=== PATIENT | female | born 1960 | race Caucasian/White ===

== ENCOUNTER 2019-11-04 21:24 | Emergency (ER) | payer BC, OTHER ==
[~2019-11-04] VITALS: Ht 154.9 cm; Wt 113.2 kg
--- NOTE | 2019-11-04 21:59 | ED Integumentary General ---
General Stated Complaint: NODULE PQAIN Source: patient Exam Limitations: no limitations History of Present Illness Date Seen by Provider: Nov 04, 2019 Time Seen by Provider: 21:45 Initial Comments 58-year-old female presents because she "wants her white blood cells count drawn" patient reports that she is has some nodules on her back and under her right breast to the been there for at least 2-1/2 months. She was scheduled to see a surgeon and have a biopsy done but did not make the appointment. Patient reports that they've been more painful over the last couple days and wants assistance or "infected" by a white blood cell count. 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 She reports she's been taking "Hazard's for the pain" and is not helping. She does not have any acute complaints. I did discuss with her that this is not an emergent type visit and that I lab is not indicated. It reviewed with her that is probably will not be covered by insurance which she states "she will pay for it herself" if not. I will check her white blood cell count as requested. Allergies and Home Medications Allergies Coded Allergies: amitriptyline (Verified Allergy, Unknown, 11/04/19) diphenhydramine (Verified Allergy, Unknown, 11/04/19) fentanyl (Verified Allergy, Unknown, 11/04/19) ketorolac (Verified Allergy, Unknown, 11/04/19) Patient Home Medication List Home Medication List Reviewed: Yes Review of Systems Review of Systems Constitutional: No chills, No fever Respiratory: No cough, No short of breath Gastrointestinal: no symptoms reported Skin: see HPI Past Beesqoi-Dwarxh-Ooilhi Hx Past Med/Social Hx: Reviewed Nursing Past Med/Soc Hx Patient Social History Recent Foreign Travel: No Contact w/Someone Who Travel: No Physical Exam Vital Signs Vital Signs - First Documented 11/04/19 21:42 Temp 37.7 Pulse 90 Resp 20 B/P (MAP) 138/88 (105) O2 Delivery Room Air Capillary Refill : General Appearance: no apparent distress Cardiovascular: regular rate, rhythm Respiratory: no respiratory distress Gastrointestinal: soft, other (obese) Extremities: normal range of motion Neurologic/Psychiatric: alert, oriented x 3 Skin: other (small nodules most consistent with lipoma or similar type mass, no erythema, warmth, induration or abscess abscesses present.) Progress/Results/Core Measures Results/Orders Lab Results Laboratory Tests Test 11/04/19 22:05 Range/Units White Blood Count 10.9 4.3-11.0 10^3/uL Red Blood Count 5.12 4.35-5.85 10^6/uL Hemoglobin 14.6 11.5-16.0 G/DL Hematocrit 44 35-52 % Mean Corpuscular Volume 87 80-99 FL Mean Corpuscular Hemoglobin 29 25-34 PG Mean Corpuscular Hemoglobin Concent 33 32-36 G/DL Red Cell Distribution Width 13.2 10.0-14.5 % Platelet Count 313 130-400 10^3/uL Mean Platelet Volume 10.4 7.4-10.4 FL Neutrophils (%) (Auto) 57 42-75 % Lymphocytes (%) (Auto) 30 12-44 % Monocytes (%) (Auto) 10 0-12 % Eosinophils (%) (Auto) 2 0-10 % Basophils (%) (Auto) 1 0-10 % Neutrophils # (Auto) 6.2 1.8-7.8 X 10^3 Lymphocytes # (Auto) 3.3 1.0-4.0 X 10^3 Monocytes # (Auto) 1.1 H 0.0-1.0 X 10^3 Eosinophils # (Auto) 0.3 0.0-0.3 10^3/uL Basophils # (Auto) 0.1 0.0-0.1 10^3/uL My Orders Orders - WANDER ESQUIVEL DO Cbc With Automated Diff (11/04/19 21:52) Vital Signs/I&O 11/04/19 21:42 Temp 37.7 Pulse 90 Resp 20 B/P (MAP) 138/88 (105) O2 Delivery Room Air Departure Impression Primary Impression: Lipoma Qualified Codes: D17.9 - Benign lipomatous neoplasm, unspecified Disposition: 01 HOME, SELF-CARE Condition: Stable Departure-Patient Inst. Referrals: NO,LOCAL PHYSICIAN (PCP/Family) Primary Care Physician Patient Instructions: Lipoma Add. Discharge Instructions: Emergency department focuses on treating and ruling out life-threatening diseases. Whenever possible, a diagnosis is given. However, most patients are given an impression based on their history, physical exam, and workup during your brief time in the ER. Information about probable diagnosis and other educational material has been provided. Please take the time to read and understand this information. It is very important that you follow up with a physician as discussed during the visit today. Failure to adhere to your follow-up instructions may lead to severe disability, injury, or so please make sure to keep your appointments or obtain one as requested. Please keep in mind the emergency department is not designed to your primary care or "family doctor" and nonurgent issues are best evaluated by an outpatient physician WANDER ESQUIVEL DO Nov 04, 2019 21:59
[2019-11-04 22:17] LABS: BASOPHILS % (AUTO) 1 % (0-10); EOSINOPHILS # (AUTO) 0.3 10^3/uL (0.0-0.3); EOSINOPHILS % (AUTO) 2 % (0-10); HEMATOCRIT 44 % (35-52); HEMOGLOBIN 14.6 G/DL (11.5-16.0); LYMPHOCYTES # (AUTO) 3.3 X 10^3 (1.0-4.0); LYMPHOCYTES % (AUTO) 30 % (12-44); MEAN CORPUSCULAR HEMOGLOBIN 29 PG (25-34); MEAN CORPUSCULAR HGB CONC 33 G/DL (32-36); MEAN CORPUSCULAR VOLUME 87 FL (80-99); MEAN PLATELET VOLUME 10.4 FL (7.4-10.4); MONOCYTES # (AUTO) 1.1 X 10^3 (0.0-1.0); MONOCYTES % (AUTO) 10 % (0-12); NEUTROPHILS # (AUTO) 6.2 X 10^3 (1.8-7.8); NEUTROPHILS % (AUTO) 57 % (42-75); PLATELET COUNT 313 10^3/uL (130-400); RED CELL DISTRIBUTION WIDTH 13.2 % (10.0-14.5); WHITE BLOOD COUNT 10.9 10^3/uL (4.3-11.0)
[2019-11-04 22:18] LABS: BASOPHILS # (AUTO) 0.1 10^3/uL (0.0-0.1)
[2019-11-04 22:27] VITALS: BP 138/88
== END 2019-11-04 22:33 | disposition home or self-care (01) ==
LOC: EDUNIT# 21:24 → ER FS 21:29
DX: D17.9 Benign lipomatous neoplasm, unspecified (principal); Z88.5 Allergy status to narcotic agent; Z88.6 Allergy status to analgesic agent; Z88.8 Allergy status to other drugs, medicaments and biological substances
CPT/HCPCS: 36415; 85025

== ENCOUNTER 2019-12-08 17:30 | Emergency (ER) | payer BC ==
[~2019-12-08] VITALS: Ht 154.9 cm; Wt 112.9 kg
--- NOTE | 2019-12-08 17:32 | NUR ---
Pt refusing any procedures until pt is able to use restroom. Pt reporting symptoms have resolved at this time and pt saying, "I can go home now."
--- NOTE | 2019-12-08 17:45 | ED Chest Pain ---
General Stated Complaint: CP Source: patient, EMS Exam Limitations: no limitations History of Present Illness Date Seen by Provider: Dec 08, 2019 Time Seen by Provider: 17:40 Initial Comments Patient brought in by ambulance for chest pain. The patient was sleeping taking a nap she awoke with nausea vomited and then developed substernal chest pain that radiated straight through to her back she had no syncope no shortness of breath no diaphoresis pain did radiate somewhat into the left shoulder she was treated was ondansetron on the scene and is now feeling quite better and the chest pain is completely resolved. She has had symptoms like this previously where she's undergone an extensive workup including provocative cardiac stress testing they have all been normal. The nonsmoker she has diabetes she has hypertension and she is unknown cholesterol she is a positive family history father with coronary artery disease. 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 ASSOCIATE: Yes Associated Symptoms: No abdominal pain; back pain; No diaphoresis, No dizziness, No fever/chills; nausea/vomiting Allergies and Home Medications Allergies Coded Allergies: amitriptyline (Verified Allergy, Unknown, 11/04/19) diphenhydramine (Verified Allergy, Unknown, 11/04/19) fentanyl (Verified Allergy, Unknown, 11/04/19) ketorolac (Verified Allergy, Unknown, 11/04/19) Patient Home Medication List Home Medication List Reviewed: Yes Review of Systems Review of Systems Constitutional: No chills, No diaphoresis, No fever EENTM: No Double Vision, No Ear Pain, No Mouth Pain Respiratory: Denies Cough, Denies Orthopnea, Denies Shortness of Air Cardiovascular: See HPI Gastrointestinal: See HPI Genitourinary: No Symptoms Reported Musculoskeletal: back pain Skin: no symptoms reported Psychiatric/Neurological: Anxiety Endocrine: No Symptoms Reported Hematologic/Lymphatic: Other (patient has some scattered nodules under the skin that are lymph nodes versus fibromas currently pending a biopsy) Past Xboyvto-Ziezpy-Wmucqm Hx Past Med/Social Hx: Reviewed Nursing Past Med/Soc Hx Patient Social History Recent Hopitalizations: No Seasonal Allergies Seasonal Allergies: No Past Medical History Surgeries: Yes (LIVER BIOPSY, THYROID BIOPSY, KNEE SURGERY) Gallbladder Respiratory: No Cardiac: Yes Heart Attack Neurological: No Genitourinary: No Gastrointestinal: No Musculoskeletal: No Endocrine: No HEENT: No Cancer: No Psychosocial: No Integumentary: No Blood Disorders: No Physical Exam Vital Signs Vital Signs - First Documented Capillary Refill : Height, Weight, BMI Height: '" Weight: lbs. oz. kg; 47.00 BMI Method: General Appearance: No Apparent Distress, WD/WN, Other (mildly obese) HEENT: PERRL/EOMI, TMs Normal, Normal ENT Inspection, Pharynx Normal Neck: Full Range of Motion, Normal Inspection, Non Tender, Supple Respiratory: Chest Non Tender, Lungs Clear, Normal Breath Sounds, No Accessory Muscle Use Cardiovascular: Regular Rate, Rhythm, No Edema, No Murmur, Normal Peripheral Pulses Gastrointestinal: Normal Bowel Sounds, No Organomegaly, Non Tender, Soft Extremity: Normal Capillary Refill, Normal Inspection, Normal Range of Motion, Non Tender, No Calf Tenderness Neurologic/Psychiatric: Alert, Oriented x3, No Motor/Sensory Deficits, Normal 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, 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 as 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 Skin: Normal Color, Warm/Dry Progress/Results/Core Measures Results/Orders Lab Results Laboratory Tests Test 12/08/19 17:35 12/08/19 19:35 Range/Units White Blood Count 8.6 4.3-11.0 10^3/uL Red Blood Count 4.96 4.35-5.85 10^6/uL Hemoglobin 14.0 11.5-16.0 G/DL Hematocrit 43 35-52 % Mean Corpuscular Volume 87 80-99 FL Mean Corpuscular Hemoglobin 28 25-34 PG Mean Corpuscular Hemoglobin Concent 32 32-36 G/DL Red Cell Distribution Width 13.1 10.0-14.5 % Platelet Count 300 130-400 10^3/uL Mean Platelet Volume 10.6 H 7.4-10.4 FL Urine Color YELLOW Urine Clarity CLEAR Urine pH 8.5 5-9 Urine Specific [place] 1.020 1.016-1.022 Urine Protein NEGATIVE NEGATIVE Urine Glucose (UA) TRACE H NEGATIVE Urine Ketones NEGATIVE NEGATIVE Urine Nitrite NEGATIVE NEGATIVE Urine Bilirubin NEGATIVE NEGATIVE Urine Urobilinogen 0.2 < = 1.0 MG/DL Urine Leukocyte Esterase NEGATIVE NEGATIVE Urine RBC (Auto) NEGATIVE NEGATIVE Urine RBC RARE /HPF Urine WBC NONE /HPF Urine Squamous Epithelial Cells 2-5 /HPF Urine Crystals NONE /LPF Urine Bacteria NONE /HPF Urine Casts NONE /LPF Urine Mucus NEGATIVE /LPF Urine Culture Indicated NO Sodium Level 140 135-145 MMOL/L Potassium Level 4.2 3.6-5.0 MMOL/L Chloride Level 100 98-107 MMOL/L Carbon Dioxide Level 30 21-32 MMOL/L Anion Gap 10 5-14 MMOL/L Blood Urea Nitrogen 18 7-18 MG/DL Creatinine 0.68 0.60-1.30 MG/DL Estimat Glomerular Filtration Rate > 60 BUN/Creatinine Ratio 26 Glucose Level 186 H 70-105 MG/DL Calcium Level 9.0 8.5-10.1 MG/DL Corrected Calcium 8.9 8.5-10.1 MG/DL Total Bilirubin 0.3 0.1-1.0 MG/DL Aspartate Amino Transf (AST/SGOT) 25 5-34 U/L Alanine Aminotransferase (ALT/SGPT) 33 0-55 U/L Alkaline Phosphatase 120 40-136 U/L Troponin I < 0.30 < 0.30 <0.30 NG/ML Total Protein 7.3 6.4-8.2 GM/DL Albumin 4.1 3.2-4.5 GM/DL Lipase 18 8-78 U/L My Orders Orders - MARLENE IVAN DO Comprehensive Metabolic Panel (12/08/19 17:46) Cbc No Diff (12/08/19 17:46) Troponin I Fs (12/08/19 17:46) Lipase (12/08/19 17:46) Urinalysis (12/08/19 17:46) Ekg Tracing (12/08/19 17:46) Ekg-Prn For Chest Pain Or Rhyt (12/08/19 17:46) Chest 1 View Ap/Pa Only (12/08/19 17:46) Famotidine Injection (Pepcid Injection) (12/09/19 09:00) Lidocaine 2% Viscous 15 Ml (Xylocaine Vi (12/08/19 18:00) Antacid Suspension (Mylanta Suspension (12/08/19 18:00) Famotidine Injection (Pepcid Injection) (12/08/19 17:49) Troponin I Fs (12/08/19 19:35) Ondansetron Injection (Zofran Injectio (12/08/19 19:33) Ondansetron Injection (Zofran Injectio (12/08/19 19:45) Promethazine Injection (Phenergan Injec (12/08/19 20:30) Medications Given in ED Current Medications Medications Dose Ordered Sig/Madan Route Start Time Stop Time Status Last Admin Dose Admin Ondansetron HCl 4 mg ONCE ONCE IVP 12/08/19 19:45 12/08/19 19:46 DC 12/08/19 19:41 4 MG Promethazine HCl 12.5 mg ONCE ONCE IVP 12/08/19 20:30 12/08/19 20:31 DC 12/08/19 20:23 12.5 MG Vital Signs/I&O 12/08/19 12/08/19 17:30 17:30 Temp 36.5 Pulse 96 Resp 12 B/P (MAP) 145/75 (98) Pulse Ox 95 O2 Delivery Room Air Room Air Progress Progress Note : Progress Note Patient presents with sudden onset of nausea and vomiting sexually followed by chest pain which was relieved with ondansetron. In the department she reports some mild diarrhea as well. She does have some risk factors will risk stratify her with a heart score troponin and EKGs make determination about need for admission most likely this represents gastroenteritis and will treat her symptom atically and have shared decision making with the patient concerning admission versus discharge since she's had previous negative cardiac workups recently. HEART score is 3, 1 point for age 2 points for risk factors except patient low risk repeat the troponin although it is not the ultra high sensitivity in 2 hours as an additional back up to the heart score follows is normal I will discharge the patient home. She was feeling better with the GI cocktail antacids signs are stable 1900 reevaluation patient had been doing quite well vital signs are stable chatting with family when I went in for reevaluation she suddenly became quite ill and says she felt nauseated. Her labs are normal biliary and pink LANEY labs normal serial troponins were negative her EKG was normal her heart score is 3 she takes omeprazole on a regular basis most likely this is gastritis or GERD initially light of negative cardiac test in the past plan will be continued on proton pump inhibitors to add antihistamines oral antacids and anti-emetics to the regimen and have primary care follow-up for EGD Initial ECG Impression Date: Dec 08, 2019 Initial ECG Impression Time: 17:51 Initial ECG Rate: 85 Initial ECG Rhythm: Normal Sinus Initial ECG Impression: Normal Departure Impression Primary Impression: Non-cardiac chest pain Additional Impression: GERD (gastroesophageal reflux disease) Disposition: 01 HOME, SELF-CARE Condition: Stable Departure-Patient Inst. Referrals: [facility] [place] primary care doctor Wednesday for evaluation for an EGD NO,LOCAL PHYSICIAN (PCP) Primary Care Physician Patient Instructions: Chest Pain That Is Not Caused by the Heart (DC), Acid Reflux (Gastroesophageal Reflux Disease), Adult (DC) MARLENE IVAN DO Dec 08, 2019 17:45
[2019-12-08] MEDS ORDERED: FAMOTIDINE 20MG/2ML IV (PEPCID) ONE (17:49)
--- NOTE | 2019-12-08 17:55 | NUR ---
Pt refusing the GI cocktail at this time.
[2019-12-08 17:57] LABS: MEAN PLATELET VOLUME 10.6 FL (7.4-10.4); RED CELL DISTRIBUTION WIDTH 13.1 % (10.0-14.5); WHITE BLOOD COUNT 8.6 10^3/uL (4.3-11.0)
[2019-12-08 18:00] LABS: CLARITY,URINE CLEAR; COLOR,URINE YELLOW; PH,URINE 8.5 (5-9)
[2019-12-08] MEDS ORDERED: LIDOCAINE 2% VISCOUS 15 ML UDC PO ONE (18:00)
[2019-12-08] MEDS ORDERED: ANTACID SUSP 30 ML UDC (MYLANTA) PO ONE (18:00)
[2019-12-08 18:01] LABS: BILIRUBIN,URINE NEGATIVE (NEGATIVE); GLUCOSE, URINE (UA) TRACE (NEGATIVE); KETONES,URINE NEGATIVE (NEGATIVE); LEUKOCYTE ESTERASE ,URINE NEGATIVE (NEGATIVE); NITRITE,URINE NEGATIVE (NEGATIVE); PROTEIN,URINE NEGATIVE (NEGATIVE); RBC,URINE RARE /HPF
[2019-12-08 18:14] LABS: ALANINE AMINOTRANSFERASE 33 U/L (0-55); ALBUMIN 4.1 GM/DL (3.2-4.5); ALKALINE PHOSPHATASE 120 U/L (40-136); BILIRUBIN,TOTAL 0.3 MG/DL (0.1-1.0); BUN/CREATININE RATIO 26; CARBON DIOXIDE 30 MMOL/L (21-32); CHLORIDE 100 MMOL/L (98-107); CREATININE SERUM 0.68 MG/DL (0.60-1.30); GFR ESTIMATED > 60; GLUCOSE 186 MG/DL (70-105); LIPASE 18 U/L (8-78); POTASSIUM 4.2 MMOL/L (3.6-5.0); SODIUM 140 MMOL/L (135-145); TOTAL PROTEIN 7.3 GM/DL (6.4-8.2)
--- NOTE | 2019-12-08 18:14 | Diagnostic Imaging Report ---
CHEST 1 VIEW AP/PA ONLY Indication: Chest pain Comparison: None available. Findings: Right basilar bandlike subsegmental atelectasis. Otherwise, visualized lungs are clear. Please note that the posterior lower lobes are poorly evaluated by portable radiography. No pleural effusion or pneumothorax. Normal cardiomediastinal silhouette. Impression: 1. No acute cardiopulmonary process by portable radiography. Dictated by: Dictated on workstation # [id number]
--- NOTE | 2019-12-08 18:45 | NUR ---
Report given to STEVEN Richter.
[2019-12-08] MEDS ORDERED: ONDANSETRON 4 MG/2 ML (SDV) Z0FRAN ONE (19:33)
[2019-12-08] MEDS ORDERED: ONDANSETRON 4 MG/2 ML (SDV) Z0FRAN IVP ONE (19:45)
[2019-12-08] MEDS ORDERED: PROMETHAZINE INJ 25 MG/ML (PHENERGAN) AMP IVP ONE (20:30)
[2019-12-08] MEDS ORDERED: PROM25TA14 PO (20:40)
[2019-12-08] MEDS ORDERED: MAG-99 PO (20:40)
[2019-12-08] MEDS ORDERED: FAMO40TA72 PO (20:40)
[2019-12-08 20:47] VITALS: BP 152/63
[2019-12-09] MEDS ORDERED: FAMOTIDINE 20MG/2ML IV (PEPCID) IVP SCH (09:00)
== END 2019-12-08 20:53 | disposition home or self-care (01) ==
LOC: EDUNIT# 17:30 → ER FS 17:30
DX: K21.9 Gastro-esophageal reflux disease without esophagitis (principal); I25.2 Old myocardial infarction; Z88.6 Allergy status to analgesic agent; Z88.5 Allergy status to narcotic agent; Z88.8 Allergy status to other drugs, medicaments and biological substances
CPT/HCPCS: 36415; 71045; 80053; 81000; 83690; 84484; 85027; 93005; 96374; 96375

== ENCOUNTER 2020-04-05 10:24 | Emergency (ER) | payer BC ==
[~2020-04-05] VITALS: Ht 154.9 cm; Wt 110.9 kg
[~2020-04-05 10:24] MED LIST: FAMO40TA72 PO; MAG-99 PO; PROM25TA14 PO
--- OUTSIDE RECORDS SUMMARY | 2020-04-05 10:32 | XMS REPORT | Continuity of Care Document ---
Author Organization Unknown Address Unknown Phone Unavailable Allergies Active Description Code Type Severity Reaction Onset Reported/Identified Relationship to Patient Clinical Status Yes AMITRIPTYLINE [id number] Drug Aller gy Moderate N/A Yes BACTRIM DS [id number] Drug Allergy Moderate N/A Yes CELEBREX 93318088 Drug Allergy Moderate Nausea Yes CODEINE 10437810 Drug Allergy Moderate N/A Yes COMPAZINE PO TAB 10 MG 20304944 Drug Allergy Moderate N/A Yes ERYTHROMYCIN 86022955 Drug Allerg y Moderate N/A Yes FENTANYL 02293762 Drug Allergy Moderate N/A Yes IMITREX SC KIT 6 MG/0.5 ML 16835463 Drug Allergy Moderate N/A Yes KETOROLAC 42681604 Drug Allergy Moderate N/A Yes MACRODANTIN 19718601 Drug Allergy Moderate N/A Yes NALBUPHINE 14782339 Drug Allergy Moderate N/A Yes NSAID 78497197 Drug Allergy Moderate N/A Yes NUBAIN 79863259 Drug Allergy Moderate N/A Yes OXYCODONE 36741712 Drug Allergy Moderate N/A Yes PROPOXYPHENE 22435633 Drug Allerg y Moderate N/A Yes RADIOLOGICAL CONTRAST MEDIA, IODINE RELA SHABANA 74336359 Drug Allergy Moderate N/A Yes SHELLFISH 39118300 Food Allergy Moderate N/A Yes SULFA (sulfonamide) 41258527 Drug Allergy Moderate N/A Yes SUMATRIPTAN 71633361 Drug Allergy Moderate N/A Yes TORADOL 00086385 Drug Allergy Moderate N/A Yes ULTRAVIST 25740919 Drug Allergy Moderate N/A Yes VIBRAMYCIN CALCIUM 35526757 Drug Allergy Moderate N/A Yes RADIOLOGICAL CONTRAST MEDIA, IODINE RELA SHABANA 68308041 Drug Allergy Mild LOCAL REACTION ON LY WHEN EXTRAVISATED Yes ZOFRAN 05481920 Drug Allergy Unknown N/A Yes AMITRIPTYLINE 4600 Drug Allergy Low Rash 07/01/2013 Yes SULFA (SULFONAMIDE ANTIBIOTICS) 491 Drug Allergy N/A Urticaria 07/01/2013 Yes amitriptyline [id number] Dandre g Allergy Unknown N/A 11/04/2019 Yes diphenhydramine [id number] D rug Allergy Unknown N/A 11/04/2019 Yes fentanyl [id number] Drug Allergy Unknown N/A 11/04/2019 Yes ketorolac [id number] Drug Allergy Unknown N/A 11/04/2019 Yes FENTANYL 3571 Drug Allergy High Anaphylaxis 2019 Medications Medication Packaging Start Date St op Date Route Dosage Sig hydrALAZINE TAB, 25 MG (APRESOLINE) 10/11/2017 10/11/2017 ORAL 50 ONDANSETRON VIAL,4 MG/2 ML VL (ZOFRAN) 01/01/2018 01/01/2018 IV PUSH 1 MORPHINE(SULFATE), 4 MG (VIAL) IV/IM 01/01/2018 01/01/2018 IV PUSH 1 NS 0.9##37; 1000 ML 01/01/2018 01/01/2018 IV 1 HYDROcod/ACET TAB 5/325 (LORCET) 01/01/2018 01/01/2018 ORAL 1 MECLIZINE TAB, 25 MG (ANTIVERT) 08/25/2018 08/25/2018 ORAL 1 PROMETHAZINE INJ, 25 MG/ML (PHENERGAN) 08/25/2018 08/25/2018 IV PUSH 1 diphenhydrAMINE VIAL, 50 MG/ML(BENADRYL) 08/25/2018 08/25/2018 IV PUSH 1 NS 0.9##37; 1000 ML 08/25/2018 08/25/2018 IV 1 QY-OXHQVxtanrc-Ccxwbiuxhlpan Tab 10-325M 08/25/2018 ORAL 1 LABETALOL TAB 100 MG (TRANDATE) 08/25/2018 PO 100 PROMETHAZINE TAB 25 MG (PHENERGAN) 08/25/2018 ORAL 25 LABETALOL TAB 100 MG (TRANDATE) 08/25/2018 PO 100 PROMETHAZINE INJ, 25 MG/ML (PHENERGAN) 08/25/2018 IV PUSH 12.5 amLODIPine TAB, 5 MG (NORVASC) 08/25/2018 08/26/2018 ORAL 5 MORPHINE(SULFATE), 4 MG (VIAL) IV/IM 08/25/2018 IV PUSH 4 amLODIPine TAB, 5 MG (NORVASC) 08/26/2018 ORAL 5 ASPIRIN CHEW TAB, 81 MG (CHEW ASA) 09/22/2018 09/22/2018 ORAL 1 NITROGLYCERIN SL TAB, 0.4 MG. BTL OF 25 09/22/2018 09/22/2018 SL 1 PROMETHAZINE INJ, 25 MG/ML (PHENERGAN) 09/22/2018 09/22/2018 IV PUSH 1 NS 0.9##37; 1000 ML 09/22/2018 09/22/2018 IV 1 ACETAMINOPHEN 325 MG TAB (TYLENOL) 09/22/2018 PO 650 SALINE LOCK FLUSH 10 ML PREMIX SYRINGES 09/22/2018 IV PUSH 5 SALINE NASAL SPRAY (DEEP SEA) 09/22/2018 BOTH NOSTRILS 1 LABETALOL TAB 100 MG (TRANDATE) 09/22/2018 09/22/2018 PO 100 BISACODYL SUPP, 10 MG (DULCOLAX) 09/22/2018 RECTAL 10 ALUM.MAG.W/SIMETH, 30 ML (MAALOX PLUS) 09/22/2018 ORAL 30 guaiFENesin DM UD 5 ML (ROBITUSSIN DM) 09/22/2018 ORAL 5 MILK OF MAGNESIA 30 ML UD CUP 09/22/2018 ORAL 30 NITROGLYCERIN SL TAB, 0.4 MG. BTL OF 09/22/2018 SL 0.4 PROMETHAZINE TAB 25 MG (PHENERGAN) 09/22/2018 ORAL 25 LABETALOL TAB 100 MG (TRANDATE) 09/22/2018 09/22/2018 PO 50 LABETALOL TAB 100 MG (TRANDATE) 09/22/2018 PO 100 HYDROcodone/ACET TAB, 10/325 (LORCET) 09/22/2018 ORAL 1 FAMOTIDINE TAB, 20 MG (PEPCID) 09/22/2018 ORAL 20 FAMOTIDINE TAB, 20 MG (PEPCID) 09/22/2018 ORAL 20 METOPROLOL XL TAB 50 MG (TOPROL-XL) 09/22/2018 ORAL 50 diltiaZEM CD CAP, 180 MG. (CARDIZEM CD) 09/22/2018 09/22/2018 ORAL 180 diltiaZEM CD CAP, 180 MG. (CARDIZEM CD) 09/22/2018 ORAL 180 METOPROLOL XL TAB 50 MG (TOPROL-XL) 09/22/2018 09/23/2018 ORAL 50 LABETALOL TAB 100 MG (TRANDATE) 09/22/2018 09/22/2018 PO 100 PROMETHAZINE INJ, 50 MG/ML (PHENERGAN) 09/23/2018 09/23/2018 IM 25 MORPHINE(SULFATE), 4 MG (VIAL) IV/IM 09/23/2018 09/23/2018 IV PUSH 2 MORPHINE(SULFATE), 4 MG (VIAL) IV/IM 09/23/2018 09/23/2018 IV PUSH 2 diltiaZEM CD CAP, 180 MG. (CARDIZEM CD) 09/23/2018 09/23/2018 ORAL 180 ASPIRIN EC TAB, 81 MG (HALFPRIN) 09/23/2018 ORAL 81 ASPIRIN EC TAB, 81 MG (HALFPRIN) 09/23/2018 ORAL 81 methylPREDNISolone VIAL 40MG(solu-MEDROL 09/23/2018 09/23/2018 IV PUSH 20 TAMSULOSIN CAP, 0.4 MG (FLOMAX) 12/29/2018 12/29/2018 ORAL 1 ONDANSETRON VIAL,4 MG/2 ML VL (ZOFRAN) 04/13/2019 04/13/2019 IV PUSH 1 NITROGLYCERIN SL TAB, 0.4 MG. BTL OF 25 04/13/2019 04/13/2019 SL 1 LIDOCAINE VISCOUS UD 2##37; (XYLOCAINE) 04/13/2019 04/13/2019 ORAL 1 ALUM.MAG.W/SIMETH, 30 ML (MAALOX PLUS) 04/13/2019 04/13/2019 ORAL 1 NS 0.9##37; 1000 ML 04/13/2019 04/13/2019 IV 1 INSULIN novoLIN R VIAL 100 U/ML, 3 ML 04/13/2019 04/13/2019 SUB Q 1 FAMOTIDINE VIAL, 20 MG/2 ML (PEPCID) 04/13/2019 04/13/2019 IVPB 1 NS 0.9##37; 1000 ML 10/08/2019 10/08/2019 IV 1 Problems Date Dx Coded Attending Type Code Diagnosis Diagnosed By 06/23/2017 AMAYA HOFF S E 119 06/23/2017 AMAYA HOFF [id number] 06/24/2017 AMAYA HOFF Z07209 Cellulitis of head [any part, except face] 06/25/2017 AMAYA HOFF G36828 Cellulitis of head [any part, except face] 06/26/2017 AMAYA HOFF J38310 Cellulitis of head [any part, except face] 06/27/2017 AMAYA HOFF D18398 Cellulitis of head [any part, except face] 07/08/2017 AMAYA HOFF R1011 Right upper quadrant pain 07/08/2017 AMAYA HOFF R 112 Nausea with vomiting, unspecified 10/11/2017 DENIS GALAN P I10 Essential (primary) hypertension 10/11/2017 DENIS GALAN R42 Dizziness and giddiness 01/01/2018 BRITT REYNA N P R10 11 Right upper quadrant pain 01/01/2018 BRITT REYNA N S R11 2 Nausea with vomiting, unspecified 08/27/2018 AMAYA HOFF E 041 Nontoxic single thyroid nodule 08/27/2018 AMAYA HOFF E 119 Type 2 diabetes mellitus without complications 08/27/2018 AMAYA HOFF E6601 Morbid (severe) obesity due to excess calories 08/27/2018 AMAYA HOFF Y92931 Chronic post-traumatic headache, not intractable 08/27/2018 AMAYA HOFF G 459 Transient cerebral ischemic attack, unspecified 08/27/2018 AMAYA HOFF G 894 Chronic pain syndrome 08/27/2018 AMAYA HOFF I 10 Essential (primary) hypertension 08/27/2018 AMAYA HOFF I 161 Hypertensive emergency 08/27/2018 AMAYA HOFF K 760 Fatty (change of) liver, not elsewhere classified 08/27/2018 AMAYA HOFF R0789 Other chest pain 08/27/2018 AMAYA HOFF R1011 Right upper quadrant pain 08/27/2018 AMAYA HOFF R 222 Localized swelling, mass and lump, trunk 08/27/2018 AMAYA HOFF Z6843 Body mass index (BMI) 50-59.9 , adult 08/27/2018 AMAYA HOFF 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 08/27/2018 AMAYA HOFF Z8619 Personal history of other infectious and parasitic dis eases 08/27/2018 AMAYA HOFF Z8719 Personal history of other diseases of the digestive sy stem 08/27/2018 AMAYA HOFF A56664 Personal history of urinary (tract) infections 08/27/2018 AMAYA HOFF O64384 Personal history of traumatic brain injury 09/23/2018 AMAYA HOFF E 041 Nontoxic single thyroid nodule 09/23/2018 AMAYA HOFF E1165 Type 2 diabetes mellitus with hyperglycemia 09/23/2018 AMAYA HOFF E6601 Morbid (severe) obesity due to excess calories 09/23/2018 AMAYA HOFF I 10 Essential (primary) hypertension 09/23/2018 AMAYA HOFF I 160 Hypertensive urgency 09/23/2018 AMAYA HOFF R 001 Bradycardia, unspecified 09/23/2018 AMAYA HOFF P R0789 Other chest pain 09/23/2018 AMAYA HOFF R 42 Dizziness and giddiness 09/23/2018 AMAYA HOFF R 51 Headache 09/23/2018 AMAYA HOFF Z6843 Body mass index (BMI) 50-59.9 , adult 09/23/2018 AMAYA HOFF Z7982 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 09/23/2018 AMAYA HOFF 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 09/23/2018 AMAYA HOFF Z8619 Personal history of other infectious and parasitic dis eases 09/23/2018 AMAYA HOFF T29687 Personal history of other (healed) physical injury and trauma 09/23/2018 AMAYA HOFF Z40202 Personal history of nicotine dependence 10/21/2018 AMAYA HOFF I 10 Essential (primary) hypertension 10/21/2018 AMAYA HOFF P R0789 Other chest pain 11/14/2018 AMAYA HOFF E 041 Nontoxic single thyroid nodule 12/29/2018 RAJAZLYNANAREILLY DO S M54 5 Low back pain 12/29/2018 KWADWOANAROBEREILLY DO P N23 Unspecified renal colic 12/29/2018 REILLY BORRERO DO S R10 31 Right lower quadrant pain 01/16/2019 AMAYA HOFF S E 119 Type 2 diabetes mellitus without complications 01/16/2019 AMAYA HOFF P M5489 Other dorsalgia 01/16/2019 AMAYA HOFF S R 222 Localized swelling, mass and lump, trunk 01/16/2019 AMAYA HOFF R 319 Hematuria, unspecified 04/10/2019 AMAYA HOFF Z93267 Pain in left shoulder 04/10/2019 AMAYA HOFF B24071 Spondylosis without myelopathy or radiculopathy, cervi meche region 04/10/2019 AMAYA HOFF P M 542 Cervicalgia 04/10/2019 AMAYA HOFF Y13231 Other muscle spasm 04/13/2019 DALLIN GREGORIO I1 0 Essential (primary) hypertension 04/13/2019 DALLIN GREGORIO K2 10 Gastro-esophageal reflux disease with esophagitis 04/13/2019 DALLIN GREGORIO P R0 789 Other chest pain 04/13/2019 DALLIN GREGORIO R7 39 Hyperglycemia, unspecified 08/14/2019 AMAYA HOFF E 119 Type 2 diabetes mellitus without complications 08/14/2019 AMAYA HOFF S M 546 Pain in thoracic spine 08/14/2019 AMAYA HOFF P R1011 Right upper quadrant pain 09/11/2019 AMAYA HOFF M 546 Pain in thoracic spine 09/11/2019 AMAYA HOFF R0781 Pleurodynia 09/11/2019 AMAYA HOFF S R 222 Localized swelling, mass and lump, trunk 10/08/2019 DALLIN GREGORIO P R5 5 Syncope and collapse 10/08/2019 DALLIN GREGORIO S R7 39 Hyperglycemia, unspecified 11/04/2019 ESQUIVEL DO, WANDER L Ot D17.9 BENIGN LIPOMATOUS NEOPLASM, UNSPECIFIED 11/04/2019 ESQUIVEL DO, WANDER L Ot Z88.5 ALLERGY STATUS TO NARCOTIC AGENT STATUS 11/04/2019 ESQUIVEL DO, WANDER L Ot Z88.6 ALLERGY STATUS TO ANALGESIC AGENT STATUS 11/04/2019 ESQUIVEL DO, WANDER L Ot Z88.8 ALLERGY STATUS TO OTH DRUG/MEDS/BIOL SUB 11/07/2019 ESQUIVEL DO, WANDER L Ot D17.9 BENIGN LIPOMATOUS NEOPLASM, UNSPECIFIED 11/07/2019 ESQUIVEL DO, WANDER L Ot Z88.5 ALLERGY STATUS TO NARCOTIC AGENT STATUS 11/07/2019 ESQUIVEL DO, WANDER L Ot Z88.6 ALLERGY STATUS TO ANALGESIC AGENT STATUS 11/07/2019 ESQUIVEL DO, WANDER L Ot Z88.8 ALLERGY STATUS TO OTH DRUG/MEDS/BIOL SUB 12/08/2019 IVAN DO, MARLENE B Ot I25.2 OLD MYOCARDIAL INFARCTION 12/08/2019 IVAN DO, MARLENE B Ot K21.9 GASTRO-ESOPHAGEAL REFLUX DISEASE WITHOUT 12/08/2019 IVAN DO, MARLENE B Ot R07.9 CHEST PAIN, UNSPECIFIED 12/08/2019 IVAN DO, MARLENE B Ot Z88.5 ALLERGY STATUS TO NARCOTIC AGENT STATUS 12/08/2019 IVAN DO, MARLENE B Ot Z88.6 ALLERGY STATUS TO ANALGESIC AGENT STATUS 12/08/2019 IVAN DO, MARLENE B Ot Z88.8 ALLERGY STATUS TO OTH DRUG/MEDS/BIOL SUB 12/12/2019 IVAN DO, MARLENE B Ot I25.2 OLD MYOCARDIAL INFARCTION 12/12/2019 IVAN DO, MARLENE B Ot K21.9 GASTRO-ESOPHAGEAL REFLUX DISEASE WITHOUT 12/12/2019 IVAN DO, MARLENE B Ot R07.9 CHEST PAIN, UNSPECIFIED 12/12/2019 IVAN DO, MARLENE B Ot Z88.5 ALLERGY STATUS TO NARCOTIC AGENT STATUS 12/12/2019 IVAN DO, MARLENE B Ot Z88.6 ALLERGY STATUS TO ANALGESIC AGENT STATUS 12/12/2019 IVAN DO, MARLENE B Ot Z88.8 ALLERGY STATUS TO OTH DRUG/MEDS/BIOL SUB 2019 YAMILETH AWAD [id number] Advice Only Procedures There is no data. Results Test Result Range HCV RT-PCR, Quant (Non-Graph) - 10/26/16 16:05 Hepatitis C Quantitation HCV Not Detected IU/mL Test Information: Comment Aerobic Culture + Gram Stain - 06/23/17 16:30 Aerobic Culture + Gram Stain Note CBCD (AUTO DIFF) - 06/23/17 16:55 WBC 7.8 x10 3UL 4.0 - 10.0 NEUTROPHIL % 51.0 % 30.0 - 75.0 LYMPHOCYTES % 33.0 % 18.0 - 40.0 MONOCYTES % 11.5 % 1.0 - 8.0 EOSINOPHILS % 3.2 % 0.0 - 3.0 BASOPHILS % 0.9 % 0.0 - 2.0 IMMAT GRAN % 0.4 % 0.0 - 1.0 RBC 5.11 MIL/UL 4.20 - 5.00 HGB 14.6 MG/DL 12.0 - 15.0 HCT 42.9 % 37.0 - 47.0 MCV 84 FL 80 - 100 MCH 28.6 PG 26.0 - 35.0 MCHC 34.0 % 28.0 - 37.3 RDW 13.4 %CV 10.5 - 14.5 PLATELETS 308 X10 3UL 150 - 400 NRBC 0 % 0 - 0 DIFFERENTIAL AUTOMATED NRG Hgb A1c Bld-[facility] - 06/23/17 16:55 HGB-A1C 6.5 % 4.7 - 6.4 eAG 140 mg/dL NRG BASIC MET PANEL - 06/23/17 16:55 GLUCOSE 87 MG/DL 65 - 110 BUN 14 MG/DL 7 - 21 CREATININE 0.8 mg/dl 0.7 - 1.5 BUN/CRE RATIO 17.5 7.0 - 25.0 SODIUM 143 MMOL/L 137 - 145 POTASSIUM 4.3 MMOL/L 3.6 - 5.0 CHLORIDE 105 MMOL/L 98 - 107 CO2 28 mmol/L 22 - 30 CALCIUM 9.5 MG/DL 8.4 - 10.2 AGE 56 YEARS NRG gfr 79 NRG eGFR >60 mL/min/BSA NRG VANCOMYCIN TROUGH - 06/26/17 16:10 VANCO TRGH <5.0 UG/ML 5.0 - 20.0 CBCD (AUTO DIFF) - 07/08/17 11:05 WBC 7.0 x10 3UL 4.0 - 10.0 NEUTROPHIL % 51.9 % 30.0 - 75.0 LYMPHOCYTES % 30.7 % 18.0 - 40.0 MONOCYTES % 11.1 % 1.0 - 8.0 EOSINOPHILS % 5.0 % 0.0 - 3.0 BASOPHILS % 1.0 % 0.0 - 2.0 IMMAT GRAN % 0.3 % 0.0 - 1.0 RBC 4.96 MIL/UL 4.20 - 5.00 HGB 14.1 MG/DL 12.0 - 15.0 HCT 42.8 % 37.0 - 47.0 MCV 86 FL 80 - 100 MCH 28.4 PG 26.0 - 35.0 MCHC 32.9 % 28.0 - 37.3 RDW 13.3 %CV 10.5 - 14.5 PLATELETS 311 X10 3UL 150 - 400 NRBC 0 % 0 - 0 DIFFERENTIAL AUTOMATED NRG COMP METAB PANEL - 07/08/17 11:05 GLUCOSE 122 MG/DL 65 - 110 BUN 17 MG/DL 7 - 21 CREATININE 0.7 mg/dl 0.7 - 1.5 BUN/CRE RATIO 24.3 7.0 - 25.0 SODIUM 141 MMOL/L 137 - 145 POTASSIUM 4.5 MMOL/L 3.6 - 5.0 CHLORIDE 104 MMOL/L 98 - 107 CO2 25 mmol/L 22 - 30 SGOT 23 U/L 8 - 39 SGPT 43 U/L 9 - 52 ALKALINE PHOS 103 U/L 20 - 155 TOTAL BILI 0.50 MG/DL 0.01 - 1.30 TOTAL PROTEIN 7.0 G/DL 6.3 - 8.2 ALBUMIN 4.3 G/DL 3.5 - 5.0 CALCIUM 9.4 MG/DL 8.4 - 10.2 AGE 56 YEARS NRG gfr 92 NRG eGFR >60 mL/min/BSA NRG LIPASE - 07/08/17 11:05 LIPASE 76 U/L 23 - 300 SED RATE - 07/08/17 11:05 SED RATE 29 MM/HR 0 - 29 CBCD (AUTO DIFF) - 10/11/17 11:24 WBC 7.1 x10 3UL 4.0 - 10.0 NEUTROPHIL % 52.3 % 30.0 - 75.0 LYMPHOCYTES % 31.5 % 18.0 - 40.0 MONOCYTES % 11.4 % 1.0 - 8.0 EOSINOPHILS % 3.7 % 0.0 - 3.0 BASOPHILS % 0.8 % 0.0 - 2.0 IMMAT GRAN % 0.3 % 0.0 - 1.0 RBC 4.90 MIL/UL 4.20 - 5.00 HGB 13.9 g/dL 12.0 - 15.0 HCT 42.6 % 37.0 - 47.0 MCV 87 FL 80 - 100 MCH 28.4 PG 26.0 - 35.0 MCHC 32.6 % 28.0 - 37.3 RDW 13.2 %CV 10.5 - 14.5 PLATELETS 291 X10 3UL 150 - 400 NRBC 0 % 0 - 0 DIFFERENTIAL AUTOMATED NRG BASIC MET PANEL - 10/11/17 11:24 GLUCOSE 117 MG/DL 65 - 110 BUN 18 MG/DL 7 - 21 CREATININE 0.9 mg/dl 0.7 - 1.5 BUN/CRE RATIO 20.0 7.0 - 25.0 SODIUM 139 MMOL/L 137 - 145 POTASSIUM 4.5 MMOL/L 3.6 - 5.0 CHLORIDE 101 MMOL/L 98 - 107 CO2 29 mmol/L 22 - 30 CALCIUM 9.5 MG/DL 8.4 - 10.2 AGE 56 YEARS NRG gfr 69 NRG eGFR >60 mL/min/BSA NRG BNP (NT-proBNP) - 10/11/17 11:24 NT-proBNP 62 pg/mL NRG TROPONIN I - 10/11/17 11:24 TROPONIN I <0.012 NG/ML 0.000 - 0.030 CBCD (AUTO DIFF) - 01/01/18 13:32 WBC 15.1 x10 3UL 4.0 - 10.0 RBC 5.40 MIL/UL 4.20 - 5.00 HGB 15.2 g/dL 12.0 - 15.0 HCT 45.9 % 37.0 - 47.0 MCV 85 FL 80 - 100 MCH 28.1 PG 26.0 - 35.0 MCHC 33.1 % 28.0 - 37.3 RDW 13.3 %CV 10.5 - 14.5 PLATELETS 258 X10 3UL 150 - 400 NRBC 0 % 0 - 0 DIFFERENTIAL MANUAL DIFF NRG SEGS % 88 % 36 - 66 BANDS % 5 % 0 - 8 LYMPHS % 4 % 18 - 40 MONOS % 3 % 1 - 8 PLATELET ESTM ADEQUATE NRG MORPHOLOGY NORMAL NRG LIPASE - 01/01/18 14:00 LIPASE 59 U/L 23 - 300 COMP METAB PANEL - 01/01/18 14:00 GLUCOSE 172 MG/DL 65 - 110 BUN 12 MG/DL 7 - 21 CREATININE 0.6 mg/dl 0.7 - 1.5 BUN/CRE RATIO 20.0 7.0 - 25.0 SODIUM 139 MMOL/L 137 - 145 POTASSIUM 4.6 MMOL/L 3.6 - 5.0 CHLORIDE 100 MMOL/L 98 - 107 CO2 28 mmol/L 22 - 30 SGOT 24 U/L 8 - 39 SGPT 46 U/L 9 - 52 ALKALINE PHOS 115 U/L 20 - 155 TOTAL BILI 0.60 MG/DL 0.20 - 1.20 TOTAL PROTEIN 7.0 G/DL 6.3 - 8.2 ALBUMIN 4.3 G/DL 3.5 - 5.0 CALCIUM 9.1 MG/DL 8.4 - 10.2 AGE 57 YEARS NRG gfr 109 NRG eGFR >60 mL/min/BSA NRG UA COMP CULT - 01/01/18 15:15 METHOD? VOID NRG URINE COLOR YELLOW NR:YELLOW TURBIDITY CLEAR NR:CLEAR UR GLUCOSE NEGATIVE NR:NEGATIVE BILIRUBIN NEGATIVE NR:NEGATIVE KETONES NEGATIVE NR:NEGATIVE SPEC GRAVITY 1.020 1.005-1.015 BLOOD TRACE-INTACT NR:NEGATIVE pH 8.0 5.0 - 8.0 PROTEIN NEGATIVE NR:NEGATIVE UROBILINOGEN 0.2 <1.0 NITRITE NEGATIVE NR:NEGATIVE LEUK ESTERASE NEGATIVE NR:NEGATIVE MICROSCOPIC PERFORMED NRG WBC/HPF 0-5 HPF 0-4 /HPF RBC/HPF 0-3 HPF 0-4 /HPF BACTERIA TRACE NR: NEGATIVE MUCUS LIGHT NR: NEGATIVE EPI CELLS/LPF 3-10 NR: NONE SEEN REFLEX CULTURE? NO NRG CBCD (AUTO DIFF) - 08/25/18 07:30 WBC 7.0 x10 3UL 4.0 - 10.0 NEUTROPHIL % 48.0 % 30.0 - 75.0 LYMPHOCYTES % 36.3 % 18.0 - 40.0 MONOCYTES % 11.3 % 1.0 - 8.0 EOSINOPHILS % 3.2 % 0.0 - 3.0 BASOPHILS % 0.9 % 0.0 - 2.0 IMMAT GRAN % 0.3 % 0.0 - 1.0 RBC 4.88 MIL/UL 4.20 - 5.00 HGB 13.6 g/dL 12.0 - 15.0 HCT 41.9 % 37.0 - 47.0 MCV 86 FL 80 - 100 MCH 27.9 PG 26.0 - 35.0 MCHC 32.5 % 28.0 - 37.3 RDW 13.5 %CV 10.5 - 14.5 PLATELETS 265 X10 3UL 150 - 400 NRBC 0 % 0 - 0 DIFFERENTIAL AUTOMATED NRG BASIC MET PANEL - 08/25/18 07:30 GLUCOSE 166 MG/DL 65 - 110 BUN 17 MG/DL 7 - 21 CREATININE 0.6 mg/dl 0.7 - 1.5 BUN/CRE RATIO 28.3 7.0 - 25.0 SODIUM 141 MMOL/L 137 - 145 POTASSIUM 4.4 MMOL/L 3.6 - 5.0 CHLORIDE 103 MMOL/L 98 - 107 CO2 29 mmol/L 22 - 30 CALCIUM 9.1 MG/DL 8.4 - 10.2 AGE 57 YEARS NRG gfr 109 NRG eGFR >60 mL/min/BSA NRG TROPONIN I - 08/25/18 07:30 TROPONIN I <0.012 NG/ML 0.000 - 0.030 PT/PTT - 08/25/18 07:30 PTT 26.5 SECS 24.4 - 34.5 PROTIME 12.2 SECS 9.8 - 12.5 INR 1.1 2.0 - 3.5 COMP METAB PNL*ADD TEST [facility] - 08/25/18 0 7:30 COMP METAB PNL*ADD TEST [facility] LAB NR G SGOT 38 U/L 8 - 39 SGPT 50 U/L 9 - 52 ALKALINE PHOS 104 U/L 20 - 155 TOTAL BILI 0.50 MG/DL 0.20 - 1.20 TOTAL PROTEIN 6.8 G/DL 6.3 - 8.2 ALBUMIN 4.2 G/DL 3.5 - 5.0 POC GLUCOSE - 08/25/18 11:38 POCGLU 162 65 - 110 DRUG SCREEN, RAPID (URINE) - 08/25/18 16 :07 DRUG SCREEN, RAPID (URINE) LAB NRG METHAMPHETAMINE NEGATIVE NR: NEGATAIVE COCAINE NEGATIVE NR: NEGATIVE MARIJUANA (THC) NEGATIVE NR: NEGATIVE MDMA NEGATIVE NR: NEGATIVE METHADONE NEGATIVE NR: NEGATIVE OPIATES PRESUMP POS NR: NEGATIVE BENZODIAZEPINES NEGATIVE NR: NEGATIVE TCA NEGATIVE NR: NEGATIVE BARBITUATES NEGATIVE NR: NEGATIVE PCP NEGATIVE NR: NEGATIVE AMPHETAMINES NEGATIVE NR: NEGATIVE OXYCODONE PRESUMP POS NR: NEGATIVE UA COMP CULT - 08/25/18 16:07 METHOD? VOID NRG URINE COLOR YELLOW NR:YELLOW TURBIDITY CLEAR NR:CLEAR UR GLUCOSE TRACE NR:NEGATIVE BILIRUBIN NEGATIVE NR:NEGATIVE KETONES NEGATIVE NR:NEGATIVE SPEC GRAVITY 1.020 1.005-1.015 BLOOD TRACE-INTACT NR:NEGATIVE pH 6.5 5.0 - 8.0 PROTEIN NEGATIVE NR:NEGATIVE UROBILINOGEN 0.2 <1.0 NITRITE NEGATIVE NR:NEGATIVE LEUK ESTERASE NEGATIVE NR:NEGATIVE MICROSCOPIC PERFORMED NRG WBC/HPF 0-5 HPF 0-4 /HPF RBC/HPF 0-3 HPF 0-4 /HPF BACTERIA TRACE NR: NEGATIVE EPI CELLS/LPF 10-25 NR: NONE SEEN REFLEX CULTURE? NO NRG POC GLUCOSE - 08/25/18 16:39 POCGLU 117 65 - 110 POC GLUCOSE - 08/25/18 21:10 POCGLU 153 65 - 110 CBC DAILY (BLOOD COUNT) - 08/26/18 05:47 WBC 6.4 x10 3UL 4.0 - 10.0 RBC 4.56 MIL/UL 4.20 - 5.00 HGB 12.7 g/dL 12.0 - 15.0 HCT 39.8 % 37.0 - 47.0 MCV 87 FL 80 - 100 MCH 27.9 PG 26.0 - 35.0 MCHC 31.9 % 28.0 - 37.3 RDW 13.7 %CV 10.5 - 14.5 PLATELETS 241 X10 3UL 150 - 400 BASIC MET PNL DAILY - 08/26/18 05:47 GLUCOSE 198 MG/DL 65 - 110 BUN 17 MG/DL 7 - 21 CREATININE 0.7 mg/dl 0.7 - 1.5 BUN/CRE RATIO 24.3 7.0 - 25.0 SODIUM 141 MMOL/L 137 - 145 POTASSIUM 4.3 MMOL/L 3.6 - 5.0 CHLORIDE 105 MMOL/L 98 - 107 CO2 29 mmol/L 22 - 30 CALCIUM 8.9 MG/DL 8.4 - 10.2 AGE 57 YEARS NRG gfr 91 NRG eGFR >60 mL/min/BSA NRG SED RATE - 08/26/18 05:47 SED RATE 26 MM/HR 0 - 29 POC GLUCOSE - 08/26/18 07:42 POCGLU 158 65 - 110 POC GLUCOSE - 08/26/18 17:10 POCGLU 160 65 - 110 POC GLUCOSE - 08/26/18 21:18 POCGLU 210 65 - 110 CBC DAILY (BLOOD COUNT) - 08/27/18 05:05 WBC 7.2 x10 3UL 4.0 - 10.0 RBC 4.69 MIL/UL 4.20 - 5.00 HGB 13.0 g/dL 12.0 - 15.0 HCT 40.5 % 37.0 - 47.0 MCV 86 FL 80 - 100 MCH 27.7 PG 26.0 - 35.0 MCHC 32.1 % 28.0 - 37.3 RDW 13.5 %CV 10.5 - 14.5 PLATELETS 254 X10 3UL 150 - 400 BASIC MET PNL DAILY - 08/27/18 05:05 GLUCOSE 152 MG/DL 65 - 110 BUN 14 MG/DL 7 - 21 CREATININE 0.6 mg/dl 0.7 - 1.5 BUN/CRE RATIO 23.3 7.0 - 25.0 SODIUM 139 MMOL/L 137 - 145 POTASSIUM 4.5 MMOL/L 3.6 - 5.0 CHLORIDE 101 MMOL/L 98 - 107 CO2 30 mmol/L 22 - 30 CALCIUM 9.3 MG/DL 8.4 - 10.2 AGE 57 YEARS NRG gfr 109 NRG eGFR >60 mL/min/BSA NRG LIPID PROFILE - 08/27/18 05:05 LIPID PROFILE LAB NRG CHOLESTEROL 166 mg/dL 0 - 200 TRIGLYCERIDE 200 mg/dL 20 - 200 HDL 37 mg/dL 30 - 80 VLDL 40 mg/dL 0 - 40 LDL 89 mg/dL 50 - 130 CH/HDL RATIO 4.5 0.0 - 4.5 CBCD (AUTO DIFF) - 09/22/18 02:10 WBC 8.1 x10 3UL 4.0 - 10.0 NEUTROPHIL % 54.3 % 30.0 - 75.0 LYMPHOCYTES % 31.2 % 18.0 - 40.0 MONOCYTES % 10.1 % 1.0 - 8.0 EOSINOPHILS % 3.6 % 0.0 - 3.0 BASOPHILS % 0.6 % 0.0 - 2.0 IMMAT GRAN % 0.2 % 0.0 - 1.0 RBC 4.79 MIL/UL 4.20 - 5.00 HGB 13.2 g/dL 12.0 - 15.0 HCT 41.1 % 37.0 - 47.0 MCV 86 FL 80 - 100 MCH 27.6 PG 26.0 - 35.0 MCHC 32.1 % 28.0 - 37.3 RDW 13.4 %CV 10.5 - 14.5 PLATELETS 282 X10 3UL 150 - 400 NRBC 0 % 0 - 0 DIFFERENTIAL AUTOMATED NRG LACTIC ACID - 09/22/18 02:10 LACTIC ACID 1.5 mmol/L 0.5 - 2.5 COMP METAB PANEL - 09/22/18 02:10 GLUCOSE 222 MG/DL 65 - 110 BUN 21 MG/DL 7 - 21 CREATININE 0.7 mg/dl 0.7 - 1.5 BUN/CRE RATIO 30.0 7.0 - 25.0 SODIUM 137 MMOL/L 137 - 145 POTASSIUM 4.5 MMOL/L 3.6 - 5.0 SPECIMEN NOTE SAMPLE IS MODERATELY HEMOLYZED NRG CHLORIDE 103 MMOL/L 98 - 107 CO2 26 mmol/L 22 - 30 SGOT 28 U/L 8 - 39 SGPT 43 U/L 9 - 52 ALKALINE PHOS 101 U/L 20 - 155 TOTAL BILI 0.40 MG/DL 0.20 - 1.20 TOTAL PROTEIN 6.9 G/DL 6.3 - 8.2 ALBUMIN 4.1 G/DL 3.5 - 5.0 CALCIUM 9.3 MG/DL 8.4 - 10.2 AGE 57 YEARS NRG gfr 91 NRG eGFR >60 mL/min/BSA NRG MAGNESIUM - 09/22/18 02:10 MAGNESIUM 1.9 MG/DL 1.7 - 2.2 LIPASE - 09/22/18 02:10 LIPASE 89 U/L 23 - 300 TROPONIN I - 09/22/18 02:10 TROPONIN I <0.012 NG/ML 0.000 - 0.030 BNP (NT-proBNP) - 09/22/18 02:10 NT-proBNP 45 pg/mL NRG PT/PTT - 09/22/18 02:10 PTT 27.4 SECS 25.1 - 36.5 PROTIME 10.8 SECS 9.4 - 12.5 INR 1.0 2.0 - 3.5 D-DIMER - 09/22/18 02:10 D-DIMER 459 ng/mL 0 - 500 LIPID PROFILE - 09/22/18 02:10 LIPID PROFILE LAB NRG CHOLESTEROL 197 mg/dL 0 - 200 TRIGLYCERIDE 266 mg/dL 20 - 200 HDL 39 mg/dL 30 - 80 VLDL 53 mg/dL 0 - 40 LDL 105 mg/dL 50 - 130 CH/HDL RATIO 5.1 0.0 - 4.5 Hgb A1c Bld-mCnc - 09/22/18 02:10 HGB-A1C 8.1 % 4.7 - 6.4 eAG 186 mg/dL NRG UA COMP CULT - 09/22/18 03:25 METHOD? VOID NRG URINE COLOR YELLOW NR:YELLOW TURBIDITY CLEAR NR:CLEAR UR GLUCOSE 1+ NR:NEGATIVE BILIRUBIN NEGATIVE NR:NEGATIVE KETONES NEGATIVE NR:NEGATIVE SPEC GRAVITY 1.025 1.005-1.015 BLOOD TRACE-INTACT NR:NEGATIVE pH 6.0 5.0 - 8.0 PROTEIN NEGATIVE NR:NEGATIVE UROBILINOGEN 0.2 <1.0 NITRITE NEGATIVE NR:NEGATIVE LEUK ESTERASE TRACE NR:NEGATIVE MICROSCOPIC PERFORMED NRG WBC/HPF 0-5 HPF 0-4 /HPF RBC/HPF 0-3 HPF 0-4 /HPF BACTERIA 1+ FEW NR: NEGATIVE MUCUS LIGHT NR: NEGATIVE EPI CELLS/LPF 10-25 NR: NONE SEEN REFLEX CULTURE? NO NRG TROPONIN I SERIAL X3 - 09/22/18 08:20 TROPONIN I <0.012 NG/ML 0.000 - 0.030 POC GLUCOSE - 09/22/18 21:21 POCGLU 163 65 - 110 POC GLUCOSE - 09/23/18 07:21 POCGLU 138 65 - 110 POC GLUCOSE - 09/23/18 11:22 POCGLU 286 65 - 110 Metanephrines, Frac, Qn, 24-Hr - 8 12:45 Normetanephrine, Ur 207 ug/L Undefined Metanephrine, Ur 32 ug/L Undefined Normetanephr.,U,24h 388 ug/24 hr 82-500 Metanephrine, U,24hr 60 ug/24 hr 45-290 METANEPHRINES, URINE 24 HR - 09/23/18 12 :45 TOTAL VOLUME: 1875ml NRG Normetanephrine, Ur 207 ug/L Undefined Normetanephr.,U,24h 388 ug/24 hr 82-500 Metanephrine, Ur 32 ug/L Undefined Metanephrine, U,24hr 60 ug/24 hr 45-290 FINE NEEDLE ASPIRATION CYTOLOGY - 09:50 SOURCE: LEFT THYROID MASS NRG Source: COMMENT NRG Clinician provided ICD10: COMMENT NRG DIAGNOSIS: COMMENT NRG Signed out by: COMMENT NRG Performed by: COMMENT NRG Gross description: COMMENT NRG UA COMP CULT - 12/29/18 20:35 METHOD? Void NRG URINE COLOR YELLOW NR:YELLOW TURBIDITY SL HAZY NR:CLEAR UR GLUCOSE 3+ NR:NEGATIVE BILIRUBIN NEGATIVE NR:NEGATIVE KETONES NEGATIVE NR:NEGATIVE SPEC GRAVITY 1.025 1.005-1.015 BLOOD TRACE-LYSED NR:NEGATIVE pH 5.5 5.0 - 8.0 PROTEIN NEGATIVE NR:NEGATIVE UROBILINOGEN 1.0 <1.0 NITRITE NEGATIVE NR:NEGATIVE LEUK ESTERASE NEGATIVE NR:NEGATIVE MICROSCOPIC PERFORMED NRG WBC/HPF 0-5 HPF 0-4 /HPF RBC/HPF 4-10 HPF 0-4 /HPF BACTERIA 1+ FEW NR: NEGATIVE EPI CELLS/LPF 25-50 NR: NONE SEEN REFLEX CULTURE? NO NRG CBCD (AUTO DIFF) - 12/29/18 21:00 WBC 9.1 x10 3UL 4.0 - 10.0 NEUTROPHIL % 61.9 % 30.0 - 75.0 LYMPHOCYTES % 23.8 % 18.0 - 40.0 MONOCYTES % 10.8 % 1.0 - 8.0 EOSINOPHILS % 2.7 % 0.0 - 3.0 BASOPHILS % 0.5 % 0.0 - 2.0 IMMAT GRAN % 0.3 % 0.0 - 1.0 RBC 4.80 MIL/UL 4.20 - 5.00 HGB 13.4 g/dL 12.0 - 15.0 HCT 41.3 % 37.0 - 47.0 MCV 86 FL 80 - 100 MCH 27.9 PG 26.0 - 35.0 MCHC 32.4 % 28.0 - 37.3 RDW 13.1 %CV 10.5 - 14.5 PLATELETS 284 X10 3UL 150 - 400 NRBC 0 % 0 - 0 DIFFERENTIAL AUTOMATED NRG ED LACTIC ACID - 12/29/18 21:00 ED LACTIC ACID 2.2 mmol/L 0.5 - 2.5 COMP METAB PANEL - 12/29/18 21:00 GLUCOSE 276 MG/DL 65 - 110 BUN 16 MG/DL 7 - 21 CREATININE 0.7 mg/dl 0.7 - 1.5 BUN/CRE RATIO 22.9 7.0 - 25.0 SODIUM 138 MMOL/L 137 - 145 POTASSIUM 4.0 MMOL/L 3.6 - 5.0 CHLORIDE 102 MMOL/L 98 - 107 CO2 27 mmol/L 22 - 30 SGOT 33 U/L 8 - 39 SGPT 32 U/L 9 - 52 ALKALINE PHOS 113 U/L 20 - 155 TOTAL BILI 0.30 MG/DL 0.20 - 1.20 TOTAL PROTEIN 7.2 G/DL 6.3 - 8.2 ALBUMIN 4.1 G/DL 3.5 - 5.0 CALCIUM 9.2 MG/DL 8.4 - 10.2 AGE 58 YEARS NRG gfr 91 NRG eGFR >60 mL/min/BSA NRG UA COMP CULT - 01/16/19 13:00 METHOD? Void NRG URINE COLOR YELLOW NR:YELLOW TURBIDITY CLEAR NR:CLEAR UR GLUCOSE 2+ NR:NEGATIVE BILIRUBIN NEGATIVE NR:NEGATIVE KETONES NEGATIVE NR:NEGATIVE SPEC GRAVITY 1.015 1.005-1.015 BLOOD NEGATIVE NR:NEGATIVE pH 7.0 5.0 - 8.0 PROTEIN NEGATIVE NR:NEGATIVE UROBILINOGEN 0.2 <1.0 NITRITE NEGATIVE NR:NEGATIVE LEUK ESTERASE NEGATIVE NR:NEGATIVE MICROSCOPIC PERFORMED NRG WBC/HPF 0-5 HPF 0-4 /HPF RBC/HPF 0-3 HPF 0-4 /HPF BACTERIA TRACE NR: NEGATIVE EPI CELLS/LPF 10-25 NR: NONE SEEN REFLEX CULTURE? NO NRG CBCD (AUTO DIFF) - 04/13/19 03:40 WBC 7.6 x10 3UL 4.0 - 10.0 NEUTROPHIL % 44.4 % 30.0 - 75.0 LYMPHOCYTES % 39.6 % 18.0 - 40.0 MONOCYTES % 10.7 % 1.0 - 8.0 EOSINOPHILS % 4.2 % 0.0 - 3.0 BASOPHILS % 0.7 % 0.0 - 2.0 IMMAT GRAN % 0.4 % 0.0 - 1.0 RBC 5.03 MIL/UL 4.20 - 5.00 HGB 14.2 g/dL 12.0 - 15.0 HCT 43.6 % 37.0 - 47.0 MCV 87 FL 80 - 100 MCH 28.2 PG 26.0 - 35.0 MCHC 32.6 % 28.0 - 37.3 RDW 13.3 %CV 10.5 - 14.5 PLATELETS 259 X10 3UL 150 - 400 NRBC 0 % 0 - 0 DIFFERENTIAL AUTOMATED NRG PT/PTT - 04/13/19 03:40 PTT 27.9 SECS 25.1 - 36.5 PROTIME 11.1 SECS 9.4 - 12.5 INR 1.0 2.0 - 3.5 COMP METAB PANEL - 04/13/19 03:40 GLUCOSE 375 MG/DL 65 - 110 BUN 14 MG/DL 7 - 21 CREATININE 0.6 mg/dl 0.7 - 1.5 BUN/CRE RATIO 23.3 7.0 - 25.0 SODIUM 137 MMOL/L 137 - 145 POTASSIUM 4.3 MMOL/L 3.6 - 5.0 CHLORIDE 99 MMOL/L 98 - 107 CO2 27 mmol/L 22 - 30 SGOT 29 U/L 8 - 39 SGPT 32 U/L 9 - 52 ALKALINE PHOS 127 U/L 20 - 155 TOTAL BILI 0.40 MG/DL 0.20 - 1.20 TOTAL PROTEIN 7.5 G/DL 6.3 - 8.2 ALBUMIN 4.3 G/DL 3.5 - 5.0 CALCIUM 9.4 MG/DL 8.4 - 10.2 AGE 58 YEARS NRG gfr 109 NRG eGFR >60 mL/min/BSA NRG TROPONIN I - 04/13/19 03:40 TROPONIN I <0.012 NG/ML 0.000 - 0.030 BNP (NT-proBNP) - 04/13/19 03:40 NT-proBNP 33 pg/mL NRG POC GLUCOSE - 04/13/19 05:27 POCGLU 216 65 - 110 TROPONIN I - 04/13/19 05:40 TROPONIN I <0.012 NG/ML 0.000 - 0.030 CBCD (AUTO DIFF) - 08/14/19 17:43 WBC 10.6 x10 3UL 4.0 - 10.0 NEUTROPHIL % 54.6 % 30.0 - 75.0 LYMPHOCYTES % 31.9 % 18.0 - 40.0 MONOCYTES % 10.3 % 1.0 - 8.0 EOSINOPHILS % 2.2 % 0.0 - 3.0 BASOPHILS % 0.6 % 0.0 - 2.0 IMMAT GRAN % 0.4 % 0.0 - 1.0 RBC 4.94 MIL/UL 4.20 - 5.00 HGB 14.0 g/dL 12.0 - 15.0 HCT 42.6 % 37.0 - 47.0 MCV 86 FL 80 - 100 MCH 28.3 PG 26.0 - 35.0 MCHC 32.9 % 28.0 - 37.3 RDW 13.3 %CV 10.5 - 14.5 PLATELETS 312 X10 3UL 150 - 400 NRBC 0 % 0 - 0 DIFFERENTIAL AUTOMATED NRG UA COMP CULT - 08/14/19 17:43 METHOD? Void NRG URINE COLOR YELLOW NR:YELLOW TURBIDITY CLEAR NR:CLEAR UR GLUCOSE 2+ NR:NEGATIVE BILIRUBIN NEGATIVE NR:NEGATIVE KETONES NEGATIVE NR:NEGATIVE SPEC GRAVITY 1.025 1.005-1.015 BLOOD NEGATIVE NR:NEGATIVE pH 6.0 5.0 - 8.0 PROTEIN NEGATIVE NR:NEGATIVE UROBILINOGEN 0.2 <1.0 NITRITE NEGATIVE NR:NEGATIVE LEUK ESTERASE NEGATIVE NR:NEGATIVE MICROSCOPIC PERFORMED NRG WBC/HPF 0-5 HPF 0-4 /HPF RBC/HPF NONE SEEN 0-4 /HPF BACTERIA NEGATIVE NR: NEGATIVE EPI CELLS/LPF 10- NR: NONE SEEN REFLEX CULTURE? NO NRG COMP METAB PANEL - 08/14/19 17:43 GLUCOSE 220 MG/DL 65 - 110 BUN 30 MG/DL 7 - 21 CREATININE 0.9 mg/dl 0.7 - 1.5 BUN/CRE RATIO 33.3 7.0 - 25.0 SODIUM 140 MMOL/L 137 - 145 POTASSIUM 4.5 MMOL/L 3.6 - 5.0 CHLORIDE 101 MMOL/L 98 - 107 CO2 27 mmol/L 22 - 30 SGOT 32 U/L 8 - 39 SGPT 34 U/L 0 - 34 ALKALINE PHOS 103 U/L 20 - 155 TOTAL BILI 0.30 MG/DL 0.20 - 1.20 TOTAL PROTEIN 7.9 G/DL 6.3 - 8.2 ALBUMIN 4.6 G/DL 3.5 - 5.0 CALCIUM 10.0 MG/DL 8.4 - 10.2 AGE 58 YEARS NRG gfr 68 NRG eGFR >60 mL/min/BSA NRG Hgb A1c Bld-mCnc - 08/14/19 17:43 HGB-A1C 9.8 % 4.7 - 6.4 eAG 235 mg/dL NRG SED RATE - 08/14/19 17:43 SED RATE 33 MM/HR 0 - 29 CBCD (AUTO DIFF) - 09/11/19 15:54 WBC 8.9 x10 3UL 4.0 - 10.0 NEUTROPHIL % 58.7 % 30.0 - 75.0 LYMPHOCYTES % 28.6 % 18.0 - 40.0 MONOCYTES % 9.2 % 1.0 - 8.0 EOSINOPHILS % 2.5 % 0.0 - 3.0 BASOPHILS % 0.7 % 0.0 - 2.0 IMMAT GRAN % 0.3 % 0.0 - 1.0 RBC 5.07 MIL/UL 4.20 - 5.00 HGB 14.2 g/dL 12.0 - 15.0 HCT 43.9 % 37.0 - 47.0 MCV 87 FL 80 - 100 MCH 28.0 PG 26.0 - 35.0 MCHC 32.3 % 28.0 - 37.3 RDW 13.3 %CV 10.5 - 14.5 PLATELETS 303 X10 3UL 150 - 400 NRBC 0 % 0 - 0 DIFFERENTIAL AUTOMATED NRG COMP METAB PANEL - 09/11/19 15:54 GLUCOSE 291 MG/DL 65 - 110 BUN 22 MG/DL 7 - 21 CREATININE 0.8 mg/dl 0.7 - 1.5 BUN/CRE RATIO 27.5 7.0 - 25.0 SODIUM 138 MMOL/L 137 - 145 POTASSIUM 4.6 MMOL/L 3.6 - 5.0 CHLORIDE 101 MMOL/L 98 - 107 CO2 28 mmol/L 22 - 30 SGOT 30 U/L 8 - 39 SGPT 32 U/L 0 - 34 ALKALINE PHOS 108 U/L 20 - 155 TOTAL BILI 0.40 MG/DL 0.20 - 1.20 TOTAL PROTEIN 7.8 G/DL 6.3 - 8.2 ALBUMIN 4.4 G/DL 3.5 - 5.0 CALCIUM 10.1 MG/DL 8.4 - 10.2 AGE 58 YEARS NRG gfr 78 NRG eGFR >60 mL/min/BSA NRG SED RATE - 09/11/19 15:54 SED RATE 26 MM/HR 0 - 29 UA COMP CULT - 09/11/19 15:54 METHOD? Unspecified NRG URINE COLOR YELLOW NR:YELLOW TURBIDITY CLEAR NR:CLEAR UR GLUCOSE 3+ NR:NEGATIVE BILIRUBIN NEGATIVE NR:NEGATIVE KETONES NEGATIVE NR:NEGATIVE SPEC GRAVITY 1.020 1.005-1.015 BLOOD TRACE-INTACT NR:NEGATIVE pH 6.0 5.0 - 8.0 PROTEIN NEGATIVE NR:NEGATIVE UROBILINOGEN 0.2 <1.0 NITRITE NEGATIVE NR:NEGATIVE LEUK ESTERASE NEGATIVE NR:NEGATIVE MICROSCOPIC PERFORMED NRG WBC/HPF NONE SEEN 0-4 /HPF RBC/HPF 0-3 HPF 0-4 /HPF BACTERIA NEGATIVE NR: NEGATIVE EPI CELLS/LPF 3-10 NR: NONE SEEN REFLEX CULTURE? NO NRG CBCD (AUTO DIFF) - 10/08/19 20:14 WBC 9.9 x10 3UL 4.0 - 10.0 NEUTROPHIL % 65.1 % 30.0 - 75.0 LYMPHOCYTES % 22.6 % 18.0 - 40.0 MONOCYTES % 9.1 % 1.0 - 8.0 EOSINOPHILS % 2.1 % 0.0 - 3.0 BASOPHILS % 0.6 % 0.0 - 2.0 IMMAT GRAN % 0.5 % 0.0 - 1.0 RBC 5.16 MIL/UL 4.20 - 5.00 HGB 14.3 g/dL 12.0 - 15.0 HCT 44.3 % 37.0 - 47.0 MCV 86 FL 80 - 100 MCH 27.7 PG 26.0 - 35.0 MCHC 32.3 % 28.0 - 37.3 RDW 13.3 %CV 10.5 - 14.5 PLATELETS 296 X10 3UL 150 - 400 NRBC 0 % 0 - 0 DIFFERENTIAL AUTOMATED NRG COMP METAB PANEL - 10/08/19 20:14 GLUCOSE 314 MG/DL 65 - 110 BUN 24 MG/DL 7 - 21 CREATININE 0.8 mg/dl 0.7 - 1.5 BUN/CRE RATIO 30.0 7.0 - 25.0 SODIUM 137 MMOL/L 137 - 145 POTASSIUM 4.1 MMOL/L 3.6 - 5.0 CHLORIDE 99 MMOL/L 98 - 107 CO2 29 mmol/L 22 - 30 SGOT 33 U/L 8 - 39 SGPT 39 U/L 0 - 34 ALKALINE PHOS 126 U/L 20 - 155 TOTAL BILI 0.50 MG/DL 0.20 - 1.20 TOTAL PROTEIN 8.1 G/DL 6.3 - 8.2 ALBUMIN 4.3 G/DL 3.5 - 5.0 CALCIUM 9.6 MG/DL 8.4 - 10.2 AGE 58 YEARS NRG gfr 78 NRG eGFR >60 mL/min/BSA NRG PT/PTT - 10/08/19 20:14 PTT 28.0 SECS 25.1 - 36.5 PROTIME 11.7 SECS 9.4 - 12.5 INR 1.1 2.0 - 3.5 TROPONIN I - 10/08/19 20:14 TROPONIN I <0.012 NG/ML 0.000 - 0.030 BNP (NT-proBNP) - 10/08/19 20:14 NT-proBNP 48 pg/mL NRG D-DIMER - 10/08/19 20:14 D-DIMER 511 ng/mL 0 - 500 BY APL NRG HGB-A1C - 10/08/19 20:14 HGB-A1C 9.9 % 4.7 - 6.4 eAG 237 mg/dL NRG POC GLUCOSE - 10/08/19 21:58 POCGLU 210 65 - 110 TROPONIN I - 10/08/19 22:09 TROPONIN I <0.012 NG/ML 0.000 - 0.030 Complete blood count (CBC) with automate d white blood cell (WBC) differential - 11/04/19 22:05 Blood leukocytes automated count (number/volume) 10.9 10*3/uL 4.3-11.0 Blood erythrocytes automated count (number/volume) 5.12 10*6/uL 4.35-5.85 Venous blood hemoglobin measurement (mass/volume) 14.6 g/dL 11.5-16.0 Blood hematocrit (volume fraction) 44 % 35-52 Automated erythrocyte mean corpuscular volume 87 [ foz_us] 80-99 Automated erythrocyte mean corpuscular h emoglobin (mass per erythrocyte) 29 pg 25-34 Automated erythrocyte mean corpuscular h emoglobin concentration measurement (mass/volume) 33 g/dL 32-36 Automated erythrocyte distribution width ratio 13. 2 % 10.0- 14.5 Automated blood platelet count (count/volume) 313 10*3/uL 130-400 Automated blood platelet mean volume measurement 10.4 [foz_us] 7.4-10.4 Automated blood neutrophils/100 leukocytes 57 % 42-75 Automated blood lymphocytes/100 leukocytes 30 % 12-44 Blood monocytes/100 leukocytes 10 % 0-12 Automated blood eosinophils/100 leukocytes 2 % 0-10 Automated blood basophils/100 leukocytes 1 % 0-10 Blood neutrophils automated count (number/volume) 6.2 10*3 1.8-7.8 Blood lymphocytes automated count (number/volume) 3.3 10*3 1.0-4.0 Blood monocytes automated count (number/volume) 1. 1 10*3 0.0-1.0 Automated eosinophil count 0.3 10*3/uL 0 .0-0.3 Automated blood basophil count (count/volume) 0.1 10*3/uL 0.0-0.1 Automated blood complete blood count (he mogram) panel - 12/08/19 17:35 Blood leukocytes automated count (number/volume) 8.6 10*3/uL 4.3-11.0 Blood erythrocytes automated count (number/volume) 4.96 10*6/uL 4.35-5.85 Venous blood hemoglobin measurement (mass/volume) 14.0 g/dL 11.5-16.0 Blood hematocrit (volume fraction) 43 % 35-52 Automated erythrocyte mean corpuscular volume 87 [ foz_us] 80-99 Automated erythrocyte mean corpuscular h emoglobin (mass per erythrocyte) 28 pg 25-34 Automated erythrocyte mean corpuscular h emoglobin concentration measurement (mass/volume) 32 g/dL 32-36 Automated erythrocyte distribution width ratio 13. 1 % 10.0- 14.5 Automated blood platelet count (count/volume) 300 10*3/uL 130-400 Automated blood platelet mean volume measurement 10.6 [foz_us] 7.4-10.4 Complete urinalysis with reflex to cultu re - 12/08/19 17:35 Urine color determination YELLOW NRG Urine clarity determination CLEAR NR G Urine pH measurement by test strip 8.5 5-9 Specific gravity of urine by test strip 1.020 1.016-1.022 Urine protein assay by test strip, semi-quantitative NEGATIVE NEGATIVE Urine glucose detection by automated test strip TR DEANNA NEGATIVE Erythrocytes detection in urine sediment by light micr oscopy NEGATIVE NEGATIVE Urine ketones detection by automated test strip NE GATIVE NEGATIVE Urine nitrite detection by test strip NEGATIVE NEGATIVE Urine total bilirubin detection by test strip NEGA TIVE NEGATIVE Urine urobilinogen measurement by automated test strip (mass/volume) 0.2 mg/dL < = 1.0 Urine leukocyte esterase detection by dipstick NEG ATIVE NEGATIVE Automated urine sediment erythrocyte cou nt by microscopy (number/high power field) RARE NRG Automated urine sediment leukocyte count by microscopy (number/high power field) NONE NRG Bacteria detection in urine sediment by light microsco py NONE NRG Squamous epithelial cells detection in u rine sediment by light microscopy 2-5 NRG Crystals detection in urine sediment by light microsco py NONE NRG Casts detection in urine sediment by light microscopy NONE NRG Mucus detection in urine sediment by light microscopy NEGATIVE NRG Complete urinalysis with reflex to culture NO NRG Comprehensive metabolic panel - 12/08/19 17:35 Serum or plasma sodium measurement (moles/volume) 140 mmol/L 135-145 Serum or plasma potassium measurement (moles/volume) 4.2 mmol/L 3.6-5.0 Serum or plasma chloride measurement (moles/volume) 100 mmol/L 98-107 Carbon dioxide 30 mmol/L 21-32 Serum or plasma anion gap determination (moles/volume) 10 mmol/L 5-14 Serum or plasma urea nitrogen measurement (mass/volume ) 18 mg/dL 7-18 Serum or plasma creatinine measurement (mass/volume) 0.68 mg/dL 0.60-1.30 Serum or plasma urea nitrogen/creatinine mass ratio 26 NRG Serum or plasma creatinine measurement w ith calculation of estimated glomerular filtration rate > NRG Serum or plasma glucose measurement (mass/volume) 186 mg/dL 70-105 Serum or plasma calcium measurement (mass/volume) 9.0 mg/dL 8.5-10.1 Serum or plasma total bilirubin measurement (mass/volu me) 0.3 mg/dL 0.1-1.0 Serum or plasma alkaline phosphatase jl surement (enzymatic activity/volume) 120 U/L 40-136 Serum or plasma aspartate aminotransfera se measurement (enzymatic activity/volume) 25 U/L 5-34 Serum or plasma alanine aminotransferase measurement (enzymatic activity/volume) 33 U/L 0-55 Serum or plasma protein measurement (mass/volume) 7.3 g/dL 6.4-8.2 Serum or plasma albumin measurement (mass/volume) 4.1 g/dL 3.2-4.5 CALCIUM CORRECTED 8.9 mg/dL 8.5-10.1 TROPONIN I FS - 12/08/19 17:35 TROPONIN I FS < 0.30 <0.30 Lipase - 12/08/19 17:35 Lipase 18 U/L 8-78 TROPONIN I FS - 12/08/19 19:35 TROPONIN I FS < 0.30 <0.30 Encounters ACCT No. Visit Date/Time Discharge Status Pt. Type Provider Facility Loc./Unit Complaint [id number] 10/08/2019 20:04:00 10/08/2019 22:48: 00 DIS Emergency DALLIN GREGORIO 014 HIGH BLD PRESS / NEAR SYNCOPE [id number] 09/11/2019 15:33:00 09/11/2019 23:59: 59 CLS Outpatient AMAYA HOFF BACK PAIN [id number] 08/14/2019 17:21:00 08/14/2019 23:59: 59 CLS Outpatient AMAYA HOFF RT FLANK PAIN [id number] 04/13/2019 03:21:00 04/13/2019 06:36: 00 DIS Emergency DALLIN GREGORIO 014 BACK/SHOULDER PAIN [id number] 04/10/2019 14:32:00 04/10/2019 23:59: 59 CLS Outpatient KAVYA AMAYA BUSTAMANTE NECK PAIN [id number] 01/16/2019 12:06:00 01/16/2019 23:59: 59 CLS Outpatient KAVYA AMAYA BUSTAMANTE R CVA AREA [id number] 12/29/2018 20:25:00 12/29/2018 22:09: 00 DIS Emergency REILLY BORRERO DO 014 CYST ON RT OVARY OR UTI [id number] 11/14/2018 09:03:00 11/14/2018 23:59: 59 CLS Outpatient KAVYAAMAYA BULLOCK THYROID NODULE [id number] 10/21/2018 09:19:00 10/21/2018 23:59: 59 CLS Outpatient AMAYA HOFF CHEST WALL PAIN [id number] 09/22/2018 01:53:00 09/23/2018 17:39: 00 DIS Outpatient KAVYAAMAYA BULLOCK 007 CHEST PAIN, HIGH BLOOD PRESSURE [id number] 08/25/2018 07:16:00 08/27/2018 12:23: 00 DIS Outpatient KAVYAAMAYA BULLOCK 007 DIZZY, HIGH BLOOD PRESSURE [id number] 01/01/2018 13:24:00 01/01/2018 16:34: 00 DIS Emergency BRITT REYNA Sonia 014 VOMITTING, RT SIDE ABD PAIN [id number] 10/11/2017 11:10:00 10/11/2017 13:30: 00 DIS Emergency DENIS GALAN 014 HIGH BP, FEELS LIKE PASSING OUT [id number] 07/08/2017 10:51:00 07/08/2017 23:59: 59 CLS Outpatient AMAYA HOFF RUQ PAIN [id number] 06/27/2017 15:59:00 06/27/2017 23:59: 59 CLS Outpatient AMAYA HOFF CELLULITIS OF SCALP [id number] 06/26/2017 16:02:00 06/26/2017 16:02: 00 DIS Outpatient AMAYA HOFF CELLULITIS OF SCALP [id number] 06/25/2017 16:18:00 06/25/2017 16:18: 00 DIS Outpatient AMAYA HOFF CELLULITIS FO SCALP [id number] 06/24/2017 15:10:00 06/24/2017 23:59: 59 CLS Outpatient AMAYA HOFF CELLULITIS OF SCALP [id number] 06/23/2017 16:21:00 06/23/2017 23:59: 59 CLS Outpatient AMAYA HOFF SWAB OF WOUND ON HEAD [id number] 10/28/2016 13:07:00 Document Registration [id number] 2019 09:43:35 2019 10:29:36 DIS Outpatient YAMILETH AWAD [facility] [place] [id number] 12/20/2019 15:36:45 Document Registration [id number] 09/28/2018 11:07:00 Document Registration [id number] 06/26/2017 08:15:00 Document Registration [id number] 12/08/2019 17:30:00 20:53:00 DIS Emergency IVAN DO, MARLENE B [facility] ER FS CP [id number] 11/04/2019 21:29:00 22:33:00 DIS Emergency ESQUIVEL DO, WANDER L [facility] ER FS NODULE PQAIN [id number] 10/08/2019 20:04:00 Document Registration [id number] 09/11/2019 15:33:00 Document Registration [id number] 08/14/2019 17:21:00 Document Registration [id number] 04/13/2019 03:21:00 Document Registration [id number] 01/16/2019 12:06:00 Document Registration [id number] 12/29/2018 20:25:00 Document Registration [id number] 11/14/2018 09:03:00 Document Registration [id number] 09/22/2018 01:53:00 Document Registration [id number] 08/25/2018 07:16:00 Document Registration [id number] 01/01/2018 13:24:00 Document Registration [id number] 10/11/2017 11:10:00 Document Registration [id number] 07/08/2017 10:51:00 Document Registration [id number] 06/26/2017 16:02:00 Document Registration [id number] 06/23/2017 16:21:00 Document Registration [id number] 10/07/2000 00:00:00 Document Registration
--- NOTE | 2020-04-05 10:33 | ED Chest Pain ---
General Stated Complaint: DIZZINESS; CHEST PAIN; LT SHOULDER PAIN Source: patient Exam Limitations: no limitations History of Present Illness Date Seen by Provider: Apr 05, 2020 Time Seen by Provider: 10:32 Initial Comments Patient presents after an episode this morning where she suddenly became dizzy while making herself breakfast, then began to feel sweaty. She then had some sharp chest pain on the left side that radiated to her left shoulder which lasted just a few seconds and resolved. She was not going seek medical care, however her son insisted that she come to the emergency room. She presents with out chest pain and has had none since the episode which lasted only a few seconds. Denies history of heart problems, heart disease, history of heart attack. Was admitted to the hospital less than 2 years ago for an episode of chest pain with a normal workup and had a normal stress test afterward with no objective findings of heart disease. Allergies and Home Medications Allergies Coded Allergies: amitriptyline (Verified Allergy, Unknown, 11/04/19) diphenhydramine (Verified Allergy, Unknown, 11/04/19) fentanyl (Verified Allergy, Unknown, 11/04/19) ketorolac (Verified Allergy, Unknown, 11/04/19) Home Medications Famotidine 40 Mg Tablet, 40 MG PO BID PRN for GI UPSET Prescribed by: MARLENE IVAN on 12/08/192040 Mag Carb/Al Hydrox/Alginic AC 355 Ml Oral.susp, 30 ML PO TIDPC Prescribed by: MARLENE IVAN on 12/08/192040 Promethazine HCl 25 Mg Tablet, 25 MG PO Q6H PRN for NAUSEA/VOMITING Prescribed by: MARLENE IVAN on 12/08/192040 Patient Home Medication List Home Medication List Reviewed: Yes Review of Systems Review of Systems Constitutional: dizziness; No fever, No malaise, No weakness Respiratory: Denies Cough, Denies Shortness of Air Cardiovascular: Chest Pain; Denies Edema, Denies Syncope Gastrointestinal: Denies Abdominal Pain, Denies Poor Appetite, Denies Vomiting Musculoskeletal: No back pain, No joint pain Skin: No change in color, No lesions Past Qexyhee-Djmenh-Nondbg Hx Past Med/Social Hx: Reviewed Nursing Past Med/Soc Hx Patient Social History 2nd Hand Smoke Exposure: No Recent Hopitalizations: No Seasonal Allergies Seasonal Allergies: No Past Medical History Surgeries: Yes (LIVER BIOPSY, THYROID BIOPSY, KNEE SURGERY) Gallbladder Respiratory: No Cardiac: Yes Heart Attack Neurological: No Headaches /Migraines [employer] History: Tubal Ligation Genitourinary: No Gastrointestinal: No Musculoskeletal: No Endocrine: Yes Diabetes, Insulin dep HEENT: No Cancer: No Psychosocial: No Integumentary: Yes ("nodules all over body") Blood Disorders: No Physical Exam Vital Signs Vital Signs - First Documented 04/05/20 10:25 Temp 35.8 Pulse 75 Resp 12 B/P (MAP) 146/92 (110) Pulse Ox 95 O2 Delivery Room Air Capillary Refill : Height, Weight, BMI Height: '" Weight: lbs. oz. kg; 47.00 BMI Method: General Appearance: No Apparent Distress, WD/WN HEENT: Normal ENT Inspection Neck: Non Tender, Supple Respiratory: Chest Non Tender, Lungs Clear, No Respiratory Distress Cardiovascular: Regular Rate, Rhythm, No Edema, No JVD, Normal Peripheral Pulses Gastrointestinal: Non Tender, Soft; No Distended, No Guarding, No Tenderness Extremity: Normal Capillary Refill, Non Tender, No Calf Tenderness Neurologic/Psychiatric: Alert, Oriented x3, No Motor/Sensory Deficits, Normal Mood/Affect Skin: Normal Color, Warm/Dry Progress/Results/Core Measures Results/Orders Lab Results Laboratory Tests Test 04/05/20 10:39 Range/Units White Blood Count 8.6 4.3-11.0 10^3/uL Red Blood Count 5.28 4.35-5.85 10^6/uL Hemoglobin 14.8 11.5-16.0 G/DL Hematocrit 45 35-52 % Mean Corpuscular Volume 85 80-99 FL Mean Corpuscular Hemoglobin 28 25-34 PG Mean Corpuscular Hemoglobin Concent 33 32-36 G/DL Red Cell Distribution Width 13.2 10.0-14.5 % Platelet Count 305 130-400 10^3/uL Mean Platelet Volume 10.5 H 7.4-10.4 FL Neutrophils (%) (Auto) 45 42-75 % Lymphocytes (%) (Auto) 43 12-44 % Monocytes (%) (Auto) 8 0-12 % Eosinophils (%) (Auto) 3 0-10 % Basophils (%) (Auto) 1 0-10 % Neutrophils # (Auto) 3.9 1.8-7.8 X 10^3 Lymphocytes # (Auto) 3.7 1.0-4.0 X 10^3 Monocytes # (Auto) 0.7 0.0-1.0 X 10^3 Eosinophils # (Auto) 0.2 0.0-0.3 10^3/uL Basophils # (Auto) 0.1 0.0-0.1 10^3/uL Sodium Level 135 135-145 MMOL/L Potassium Level 4.6 3.6-5.0 MMOL/L Chloride Level 97 L 98-107 MMOL/L Carbon Dioxide Level 26 21-32 MMOL/L Anion Gap 12 5-14 MMOL/L Blood Urea Nitrogen 20 H 7-18 MG/DL Creatinine 0.76 0.60-1.30 MG/DL Estimat Glomerular Filtration Rate > 60 BUN/Creatinine Ratio 26 Glucose Level 286 H 70-105 MG/DL Calcium Level 9.5 8.5-10.1 MG/DL Corrected Calcium 9.3 8.5-10.1 MG/DL Total Bilirubin 0.3 0.1-1.0 MG/DL Aspartate Amino Transf (AST/SGOT) 22 5-34 U/L Alanine Aminotransferase (ALT/SGPT) 32 0-55 U/L Alkaline Phosphatase 125 40-136 U/L Troponin I < 0.30 <0.30 NG/ML Total Protein 7.5 6.4-8.2 GM/DL Albumin 4.2 3.2-4.5 GM/DL My Orders Orders - ROVENSTINEJAMISONELIZABETH Abdi DO Ed Iv/Invasive Line Start (04/05/20 10:33) Cbc With Automated Diff (04/05/20 10:33) Comprehensive Metabolic Panel (04/05/20 10:33) Troponin I Fs (04/05/20 10:33) Chest 1 View Ap/Pa Only (04/05/20 10:33) Continuous Ekg Monitoring (04/05/20 11:00) Ekg Tracing (04/05/20 10:28) Vital Signs/I&O 04/05/20 04/05/20 04/05/20 10:25 10:25 11:30 Temp 35.8 35.8 Pulse 75 70 Resp 12 16 B/P (MAP) 146/92 (110) 114/71 (110) Pulse Ox 95 93 O2 Delivery Room Air Room Air Room Air Progress Progress Note : Progress Note Patient without chest pain on arrival and without chest pain for her ER stay. Normal vital signs, EKG, chest x-ray and labs including troponin. Discussed risk factors for coronary artery disease with the patient and advised follow-up with her PCP in one week to consider further evaluation for her episode of chest pain lasting only a few seconds. She agrees and understands to call 911 should she have chest pain lasting more than a couple minutes. Initial ECG Impression Time: 10:30 Initial ECG Rate: 65 Initial ECG Rhythm: Normal Sinus Initial ECG Intervals: Normal Initial ECG Impression: Normal Diagnostic Imaging Diagonstic Imaging: Xray Plain Films/CT/US/NM/MRI: chest Comments normal no acute process Reviewed: Reviewed by Me Departure Impression Primary Impression: Chest pain Qualified Codes: R07.9 - Chest pain, unspecified Disposition: 01 HOME, SELF-CARE Condition: Stable Departure-Patient Inst. Decision time for Depature: 11:27 Referrals: NO,LOCAL PHYSICIAN (PCP/Family) Primary Care Physician Patient Instructions: Chest Pain (DC) Add. Discharge Instructions: See your Primary Care Doctor in 5 to 7 days to discuss your episode of chest pain. If your chest pain reoccurs and lasts more than a few minutes you should call 911 ELIZABETH COTTRELL DO Apr 05, 2020 10:33
--- NOTE | 2020-04-05 10:47 | Diagnostic Imaging Report ---
INDICATION: Dizziness. COMPARISON: 12/08/2019. FINDINGS: Portable chest. The lungs are well-aerated and clear. The heart is not enlarged. No pulmonary edema or hilar adenopathy. No pneumothorax or pleural effusion. No bony abnormalities. IMPRESSION: 1. Normal portable chest. Dictated by: Dictated on workstation # [id number]
[2020-04-05 11:13] LABS: ALANINE AMINOTRANSFERASE 32 U/L (0-55); ALKALINE PHOSPHATASE 125 U/L (40-136); BILIRUBIN,TOTAL 0.3 MG/DL (0.1-1.0); BUN/CREATININE RATIO 26; CALCIUM 9.5 MG/DL (8.5-10.1); CARBON DIOXIDE 26 MMOL/L (21-32); CHLORIDE 97 MMOL/L (98-107); CREATININE SERUM 0.76 MG/DL (0.60-1.30); GFR ESTIMATED > 60; GLUCOSE 286 MG/DL (70-105); POTASSIUM 4.6 MMOL/L (3.6-5.0); SODIUM 135 MMOL/L (135-145)
[2020-04-05 11:14] LABS: ALBUMIN 4.2 GM/DL (3.2-4.5); TOTAL PROTEIN 7.5 GM/DL (6.4-8.2)
[2020-04-05 11:17] LABS: HEMATOCRIT 45 % (35-52); HEMOGLOBIN 14.8 G/DL (11.5-16.0); LYMPHOCYTES % (AUTO) 43 % (12-44); MEAN CORPUSCULAR HEMOGLOBIN 28 PG (25-34); MEAN CORPUSCULAR HGB CONC 33 G/DL (32-36); MEAN CORPUSCULAR VOLUME 85 FL (80-99); MEAN PLATELET VOLUME 10.5 FL (7.4-10.4); NEUTROPHILS % (AUTO) 45 % (42-75); PLATELET COUNT 305 10^3/uL (130-400); RED CELL DISTRIBUTION WIDTH 13.2 % (10.0-14.5); WHITE BLOOD COUNT 8.6 10^3/uL (4.3-11.0)
[2020-04-05 11:18] LABS: BASOPHILS % (AUTO) 1 % (0-10); EOSINOPHILS % (AUTO) 3 % (0-10); MONOCYTES % (AUTO) 8 % (0-12)
[2020-04-05 11:19] LABS: BASOPHILS # (AUTO) 0.1 10^3/uL (0.0-0.1); EOSINOPHILS # (AUTO) 0.2 10^3/uL (0.0-0.3); LYMPHOCYTES # (AUTO) 3.7 X 10^3 (1.0-4.0); MONOCYTES # (AUTO) 0.7 X 10^3 (0.0-1.0); NEUTROPHILS # (AUTO) 3.9 X 10^3 (1.8-7.8)
[2020-04-05 11:30] VITALS: BP 114/71
== END 2020-04-05 11:30 | disposition home or self-care (01) ==
LOC: EDUNIT# 10:24 → ER FS 10:26
DX: R07.89 Other chest pain (principal); I25.2 Old myocardial infarction; E11.9 Type 2 diabetes mellitus without complications; Z88.6 Allergy status to analgesic agent; Z88.5 Allergy status to narcotic agent; Z88.8 Allergy status to other drugs, medicaments and biological substances
CPT/HCPCS: 36415; 71045; 80053; 84484; 85025; 93005

== ENCOUNTER 2021-04-15 13:40 | Inpatient (IN) | payer BC ==
[~2021-04-15] VITALS: Ht 154.9 cm; Wt 113.5 kg
--- NOTE | 2021-04-15 13:59 | ED Dyspnea ---
General Stated Complaint: SOB Source of Information: Patient Exam Limitations: No Limitations History of Present Illness Date Seen by Provider: Apr 15, 2021 Time Seen by Provider: 13:55 Initial Comments 60-year-old female with recent positive Covid test presents with shortness of air of several days duration. Is on no medication for Covid, but increased her baby to a full ASA last week and taking Vitamin C. She is a non-smoker. Past medical history of hypertension and migraines. Allergies and Home Medications Allergies Coded Allergies: amitriptyline (Verified Allergy, Unknown, 11/04/19) diphenhydramine (Verified Allergy, Unknown, 11/04/19) fentanyl (Verified Allergy, Unknown, 11/04/19) ketorolac (Verified Allergy, Unknown, 11/04/19) Home Medications Ascorbic Acid 500 Mg Capsule, 500 MG PO BID, (Reported) Last Action: Converted Aspirin 81 Mg Tablet.dr, 81 MG PO DAILY, (Reported) Last Action: Continued Diltiazem HCl 180 Mg Cap.er.24h, 180 MG PO DAILY, (Reported) Last Action: Continued Famotidine 20 Mg Tablet, 20 MG PO DAILY, (Reported) Last Action: Continued Hydrocodone/Acetaminophen 1 Each Tablet, 1 TAB PO Q6H PRN for HEADACHE, (Reported) Last Action: Continued Insulin Determir 1,000 Units/10 Ml Soln, 30 UNITS SQ HS, (Reported) Last Action: Continued Insulin Lispro 100 Unit/1 Ml Cartridge, 10 UNIT SQ AC, (Reported) Last Action: Converted Patient Home Medication List Home Medication List Reviewed: Yes Review of Systems Review of Systems Constitutional: No chills, No dizziness, No fever; malaise, weakness EENTM: no symptoms reported Respiratory: No cough; short of breath; No stridor, No wheezing Cardiovascular: No edema, No palpitations, No syncope Gastrointestinal: No abdominal pain; loss of appetite; No nausea, No vomiting Musculoskeletal: No back pain, No joint pain Skin: No change in color, No rash Past Ybgdxsh-Ljceli-Zeqelj Hx Patient Social History Tobacco Use?: No Seasonal Allergies Seasonal Allergies: No Past Medical History Surgeries: Yes (LIVER BIOPSY, THYROID BIOPSY, KNEE SURGERY) Gallbladder Respiratory: No Cardiac: Yes Heart Attack, Hypertension Neurological: No 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 oz. kg; 46.00 BMI Method: General Appearance: No Apparent Distress, WD/WN HEENT: PERRL/EOMI, Normal ENT Inspection Neck: Normal Inspection, Non Tender Respiratory: Chest Non Tender, Lungs Clear, Normal Breath Sounds, No Accessory Muscle Use, No Respiratory Distress Cardiovascular: Regular Rate, Rhythm, No JVD Gastrointestinal: Normal Bowel Sounds, Non Tender, Soft Extremity: Normal Capillary Refill, Normal Range of Motion, Non Tender Neurologic/Psychiatric: Alert, Oriented x3, No Motor/Sensory Deficits Skin: Normal Color, Warm/Dry Focused Exam Lactate Level 04/15/21 14:05: Lactic Acid Level 1.60 Lactic Acid Level Laboratory Tests Test 04/15/21 14:05 Lactic Acid Level 1.60 MMOL/L (0.50-2.00) Progress/Results/Core Measures Results/Orders Lab Results Laboratory Tests Test 04/15/21 14:05 04/15/21 15:00 Range/Units White Blood Count 4.9 4.3-11.0 10^3/uL Red Blood Count 5.33 4.35-5.85 10^6/uL Hemoglobin 14.7 11.5-16.0 G/DL Hematocrit 46 35-52 % Mean Corpuscular Volume 86 80-99 FL Mean Corpuscular Hemoglobin 28 25-34 PG Mean Corpuscular Hemoglobin Concent 32 32-36 G/DL Red Cell Distribution Width 13.3 10.0-14.5 % Platelet Count 188 130-400 10^3/uL Mean Platelet Volume 10.5 H 7.4-10.4 FL Immature Granulocyte % (Auto) 0 % Neutrophils (%) (Auto) 69 42-75 % Lymphocytes (%) (Auto) 22 12-44 % Monocytes (%) (Auto) 9 0-12 % Eosinophils (%) (Auto) 0 0-10 % Basophils (%) (Auto) 0 0-10 % Neutrophils # (Auto) 3.4 1.8-7.8 X 10^3 Lymphocytes # (Auto) 1.1 1.0-4.0 X 10^3 Monocytes # (Auto) 0.4 0.0-1.0 X 10^3 Eosinophils # (Auto) 0.0 0.0-0.3 10^3/uL Basophils # (Auto) 0.0 0.0-0.1 10^3/uL Immature Granulocyte # (Auto) 0.0 0.0-0.1 10^3/uL Sodium Level 133 L 135-145 MMOL/L Potassium Level 4.1 3.6-5.0 MMOL/L Chloride Level 94 L 98-107 MMOL/L Carbon Dioxide Level 30 21-32 MMOL/L Anion Gap 9 5-14 MMOL/L Blood Urea Nitrogen 13 7-18 MG/DL Creatinine 0.64 0.60-1.30 MG/DL Estimat Glomerular Filtration Rate > 60 BUN/Creatinine Ratio 20 Glucose Level 249 H 70-105 MG/DL Lactic Acid Level 1.60 0.50-2.00 MMOL/L Calcium Level 8.5 8.5-10.1 MG/DL Corrected Calcium 8.7 8.5-10.1 MG/DL Total Bilirubin 0.4 0.1-1.0 MG/DL Aspartate Amino Transf (AST/SGOT) 75 H 5-34 U/L Alanine Aminotransferase (ALT/SGPT) 63 H 0-55 U/L Alkaline Phosphatase 120 40-136 U/L C-Reactive Protein 4.99 H <0.50 MG/DL Total Protein 7.1 6.4-8.2 GM/DL Albumin 3.7 3.2-4.5 GM/DL D-Dimer 0.69 H 0.00-0.49 UG/ML My Orders Orders - ELIZABETH COTTRELL DO Ed Iv/Invasive Line Start (04/15/21 13:56) Chest 1 View Ap/Pa Only (04/15/21 13:56) Procalcitonin (Pct) (04/15/21 13:56) Crp Fs (04/15/21 13:56) Cbc With Automated Diff (04/15/21 13:56) Comprehensive Metabolic Panel (04/15/21 13:56) Lactic Acid Analyzer (04/15/21 13:56) Dexamethasone Injection (Decadron Inje (04/15/21 14:00) Ondansetron Injection (Zofran Injectio (04/15/21 14:45) Fibrin Degradation Products (04/15/21 14:50) Medications Given in ED Vital Signs/I&O 04/15/21 04/15/21 04/15/21 04/15/21 13:50 13:50 14:00 14:15 Temp 38.0 38.0 Pulse 93 93 94 96 Resp B/P (MAP) 136/77 136/77 (96) 147/80 135/67 Pulse Ox 92 92 93 94 O2 Delivery Room Air Room Air Nasal Cannula Nasal Cannula O2 Flow Rate 3.00 3.00 3.00 3.00 04/15/21 04/15/21 04/15/21 04/15/21 14:30 14:45 15:00 15:15 Pulse 93 96 96 95 Resp B/P (MAP) 135/82 149/89 133/73 146/76 Pulse Ox 94 93 91 92 O2 Delivery Nasal Cannula Nasal Cannula Nasal Cannula Nasal Cannula O2 Flow Rate 3.00 3.00 3.00 3.00 04/15/21 04/15/21 15:30 15:35 Temp 37.8 37.8 Pulse 96 96 Resp B/P (MAP) 143/71 146/76 (96) Pulse Ox 92 93 O2 Delivery Nasal Cannula Nasal Cannula O2 Flow Rate 3.00 3.00 Diagnostic Imaging Diagonstic Imaging: Xray Plain Films/CT/US/NM/MRI: chest Comments COMPARISON: 04/05/2020. TECHNIQUE: Frontal view of the chest. FINDINGS: There are patchy airspace opacities in the lungs bilaterally. This is most pronounced in the right upper lobe with more confluent consolidation. No pleural effusion or pneumothorax is seen. The cardiac silhouette is stable in size. IMPRESSION: Bilateral airspace opacities, most pronounced in the right upper lobe, most consistent with pneumonia. Dictated by: Dictated on workstation # [id number] Dict: 04/15/21 1417 Trans: 04/15/21 1421 [id number] Interpreted by: DIANNA NATHAN MD Electronically signed by: DIANNA NATHAN MD 04/15/21 1421 Departure Communication (Admissions) Time/Spoke to Admitting Phy: 14:[address] Almendarez who accepts for transfer/ admission to [facility] Initially, only Hx patient gave was: HTN and chronic migraine ORTEGA. After admission, patient admitted to nurse that she sometimes takes insulin. Impression Primary Impression: Pneumonia due to COVID-19 virus Additional Impression: Hypoxia Disposition: 30 STILL A PATIENT Condition: Improved Admissions Decision to Admit Reason: Admit from ER (General) Decision to Admit/Date: Apr 15, 2021 Time/Decision to Admit Time: 13:57 Departure-Patient Inst. Referrals: DIANNA BARTON MD (PCP) Primary Care Physician NO,LOCAL PHYSICIAN (Family) Primary Care Physician ELIZABETH COTTRELL DO Apr 15, 2021 13:59
[2021-04-15 14:15] LABS: HEMATOCRIT 46 % (35-52); HEMOGLOBIN 14.7 G/DL (11.5-16.0); MEAN CORPUSCULAR HEMOGLOBIN 28 PG (25-34); MEAN CORPUSCULAR HGB CONC 32 G/DL (32-36); MEAN CORPUSCULAR VOLUME 86 FL (80-99); MEAN PLATELET VOLUME 10.5 FL (7.4-10.4); NEUTROPHILS % (AUTO) 69 % (42-75); PLATELET COUNT 188 10^3/uL (130-400); WHITE BLOOD COUNT 4.9 10^3/uL (4.3-11.0)
[2021-04-15 14:16] LABS: BASOPHILS % (AUTO) 0 % (0-10); EOSINOPHILS % (AUTO) 0 % (0-10); LYMPHOCYTES # (AUTO) 1.1 X 10^3 (1.0-4.0); LYMPHOCYTES % (AUTO) 22 % (12-44); MONOCYTES # (AUTO) 0.4 X 10^3 (0.0-1.0); MONOCYTES % (AUTO) 9 % (0-12); NEUTROPHILS # (AUTO) 3.4 X 10^3 (1.8-7.8)
--- NOTE | 2021-04-15 14:21 | Diagnostic Imaging Report ---
HISTORY: Shortness of air. COMPARISON: 04/05/2020. TECHNIQUE: Frontal view of the chest. FINDINGS: There are patchy airspace opacities in the lungs bilaterally. This is most pronounced in the right upper lobe with more confluent consolidation. No pleural effusion or pneumothorax is seen. The cardiac silhouette is stable in size. IMPRESSION: Bilateral airspace opacities, most pronounced in the right upper lobe, most consistent with pneumonia. Dictated by: Dictated on workstation # [id number]
[2021-04-15] MEDS ORDERED: FAMO-119 PO (14:27)
[2021-04-15] MEDS ORDERED: ASCO500C17 PO (14:27)
[2021-04-15] MEDS ORDERED: DILT180C85 PO (14:27)
[2021-04-15] MEDS ORDERED: HYDR-3820 PO (14:27)
[2021-04-15] MEDS ORDERED: ASPI-1238 PO (14:27)
[2021-04-15 14:36] LABS: BUN/CREATININE RATIO 20; CARBON DIOXIDE 30 MMOL/L (21-32); CHLORIDE 94 MMOL/L (98-107); CREATININE SERUM 0.64 MG/DL (0.60-1.30); GFR ESTIMATED > 60; POTASSIUM 4.1 MMOL/L (3.6-5.0); SODIUM 133 MMOL/L (135-145)
[2021-04-15 14:37] LABS: ALANINE AMINOTRANSFERASE 63 U/L (0-55); ALBUMIN 3.7 GM/DL (3.2-4.5); ALKALINE PHOSPHATASE 120 U/L (40-136); BILIRUBIN,TOTAL 0.4 MG/DL (0.1-1.0); CALCIUM 8.5 MG/DL (8.5-10.1); GLUCOSE 249 MG/DL (70-105); TOTAL PROTEIN 7.1 GM/DL (6.4-8.2)
[2021-04-15] MEDS ORDERED: ONDANSETRON 4 MG/2 ML (SDV) Z0FRAN IVP ONE (14:45)
[2021-04-15] MEDS ORDERED: INSU100V5 SQ (15:07)
[2021-04-15] MEDS ORDERED: PAMI30VI8 SQ (15:07)
[2021-04-15 16:40] VITALS: BP 129/86
[2021-04-15] MEDS ORDERED: inSUlin ASPART (NovoLOG) 1 UNIT/0.01 ML (CHARGE PER UNIT) SC SCH ×2 (17:45→21:00)
[2021-04-15] MEDS: inSUlin ASPART (NovoLOG) 1 UNIT/0.01 ML (CHARGE PER UNIT) SC SCH ×2 (17:58→21:19)
[2021-04-15 18:51] VITALS: BP 129/86
[2021-04-15] MEDS ORDERED: RT-ALBUTEROL INHALER HFA (VENTOLIN HFA) 18 GM IH PRN (19:00)
[2021-04-15 19:26] VITALS: BP 114/49
[2021-04-15] MEDS ORDERED: guaiFENesin/CODEINE (ROBITUSSIN AC) 10ML UDC PO PRN (21:30)
[2021-04-15] MEDS ORDERED: DOCUSATE SODIUM 100 MG (COLACE) CAP PO PRN (21:30)
[2021-04-15] MEDS ORDERED: ALPRAZolam 0.25 MG (XANAX) TAB PO PRN (21:30)
[2021-04-15] MEDS ORDERED: CALCIUM CARBONATE 500 MG (TUMS) TAB.CHEW PO PRN (21:30)
[2021-04-15] MEDS ORDERED: diphenhydrAMINE 25 MG TAB (BENADRYL) PO PRN (21:30)
[2021-04-15] MEDS ORDERED: ACETAMINOPHEN 500 MG TAB (TYLENOL) PO PRN (21:30)
[2021-04-15] MEDS ORDERED: MELATONIN 3 MG TABLET PO PRN (21:30)
[2021-04-15] MEDS ORDERED: LOPERAMIDE 2 MG (IMODIUM) TABLET PO PRN (21:30)
[2021-04-15] MEDS: ONDANSETRON 4 MG/2 ML (SDV) Z0FRAN IVP PRN (21:57)
[2021-04-15] MEDS ORDERED: RT-ALBUTEROL INHALER HFA (VENTOLIN HFA) 18 GM IH SCH (22:00)
[2021-04-15 23:00] VITALS: BP 100/64
[2021-04-16] VITALS (18 sets, daily range): BP systolic 92–139; BP diastolic 51–88
[2021-04-16] MEDS: RT-LEVALBUTEROL (XOPENEX) 1.25 MG/3 ML NEB NON-FORMULARY INH SCH ×6 (01:13→22:25)
[2021-04-16] MEDS: inSUlin ASPART (NovoLOG) 1 UNIT/0.01 ML (CHARGE PER UNIT) SC SCH ×7 (06:37→21:36)
[2021-04-16] MEDS: ASPIRIN E.C. 81 MG (ECOTRIN) TAB PO SCH (09:17)
[2021-04-16] MEDS: ENOXAPARIN 40 MG/0.4 ML (LOVENOX) SYR SC SCH ×2 (09:17→21:35)
[2021-04-16] MEDS: FAMOTIDINE 20 MG (PEPCID) TABLET PO SCH (09:17)
[2021-04-16] MEDS: SENNA W/DOCUSATE (SENOKOT S) TABLET PO SCH ×2 (09:17→21:28)
[2021-04-16] MEDS: ASCORBIC ACID (VIT C) 500 MG TABLET PO SCH ×2 (09:17→21:28)
[2021-04-16 09:32] LABS: BASOPHILS % (AUTO) 0 % (0-10); EOSINOPHILS % (AUTO) 0 % (0-10); HEMATOCRIT 48 % (35-52); HEMOGLOBIN 15.4 g/dL (11.5-16.0); LYMPHOCYTES # (AUTO) 0.3 10^3/uL (1.0-4.0); LYMPHOCYTES % (AUTO) 6 % (12-44); MEAN CORPUSCULAR HEMOGLOBIN 28 pg (25-34); MEAN CORPUSCULAR HGB CONC 32 g/dL (32-36); MEAN CORPUSCULAR VOLUME 87 fL (80-99); MEAN PLATELET VOLUME 10.2 fL (9.0-12.2); MONOCYTES # (AUTO) 0.5 10^3/uL (0.0-1.0); MONOCYTES % (AUTO) 10 % (0-12); NEUTROPHILS # (AUTO) 4.6 10^3/uL (1.8-7.8); NEUTROPHILS % (AUTO) 83 % (42-75); PLATELET COUNT 150 10^3/uL (130-400); WHITE BLOOD COUNT 5.5 10^3/uL (4.3-11.0)
[2021-04-16 09:54] LABS: ALBUMIN 3.6 GM/DL (3.2-4.5); CHLORIDE 99 MMOL/L (98-107); POTASSIUM 3.7 MMOL/L (3.6-5.0); SODIUM 136 MMOL/L (135-145)
[2021-04-16 09:56] LABS: CALCIUM 8.3 MG/DL (8.5-10.1)
[2021-04-16 09:57] LABS: GLUCOSE 285 MG/DL (70-105); TOTAL PROTEIN 7.1 GM/DL (6.4-8.2)
[2021-04-16 09:58] LABS: CARBON DIOXIDE 24 MMOL/L (21-32)
[2021-04-16 09:59] LABS: BILIRUBIN,TOTAL 0.4 MG/DL (0.1-1.0)
[2021-04-16 10:00] LABS: ALKALINE PHOSPHATASE 101 U/L (40-136); CREATININE SERUM 0.83 MG/DL (0.60-1.30); GFR ESTIMATED > 60
[2021-04-16] MEDS ORDERED: inSUlin ASPART (NovoLOG) 1 UNIT/0.01 ML (CHARGE PER UNIT) SC SCH (10:00)
[2021-04-16 10:01] LABS: BUN/CREATININE RATIO 18
[2021-04-16 10:03] LABS: ALANINE AMINOTRANSFERASE 70 U/L (0-55)
[2021-04-16 10:08] LABS: LYMPHOCYTES % (MANUAL) 6 %; MONOCYTES % (MANUAL) 2 %; NEUTROPHILS % (MANUAL) 92 %; RBC MORPH NORMAL
--- NOTE | 2021-04-16 12:32 | Tele-ICU Consult ---
History of Present Illness History of Present Illness Date Seen by Provider: Apr 16, 2021 Time Seen by Provider: 12:32 Date of Admission Allergies and Home Medications Allergies Coded Allergies: albuterol (Verified Allergy, Unknown, 04/16/21) throat swelling amitriptyline (Verified Allergy, Unknown, 11/04/19) diphenhydramine (Verified Allergy, Unknown, 11/04/19) fentanyl (Verified Allergy, Unknown, 11/04/19) ketorolac (Verified Allergy, Unknown, 11/04/19) Home Medications Ascorbic Acid 500 Mg Capsule, 500 MG PO BID, (Reported) Aspirin 81 Mg Tablet.dr, 81 MG PO DAILY, (Reported) Diltiazem HCl 180 Mg Cap.er.24h, 180 MG PO DAILY, (Reported) Famotidine 20 Mg Tablet, 20 MG PO DAILY, (Reported) Hydrocodone/Acetaminophen 1 Each Tablet, 1 TAB PO Q6H PRN for HEADACHE, (Reported) Insulin Determir 1,000 Units/10 Ml Soln, 30 UNITS SQ HS, (Reported) Insulin Lispro 100 Unit/1 Ml Cartridge, 10 UNIT SQ AC, (Reported) Past Medical/Social/Family Hx Patient Social History Tobacco Use?: No Use of E-Cig and/or Vaping dev: No Substance use?: No Alcohol Use?: No Alcohol Frequency: Rarely Pt stated abuse/neglect: No Immunizations Up To Date Influenza Vaccine Up-to-Date: No; Not Current Tetanus Booster (TDap): Less Than 5 Years Hepatitis A: No Hepatitis B: No TB Skin Test: Negative Current Status status: No Advance Directives: No Advance Directive Location: Home Communicates: Verbally Primary Language: Sammarinese Preferred Spoken Language: Sammarinese Is interpretation needed?: No Sensory deficits: Vision impairment Implanted or Applied Medical D: None Review of Systems Constitutional: see HPI Sepsis Event Evaluation Height, Weight, BMI Height: '" Weight: lbs. oz. kg; 47.01 BMI Method: Exam Exam Patient acknowledged, consented, and participated in this virtual visit which was conducted using real time audio/video Vital Signs Date Time Temp Pulse Resp B/P (MAP) Pulse Ox O2 Delivery O2 Flow Rate FiO2 04/16/21 12:00 72 11 101/60 (74) 93 Vapotherm 40.00 100.00 04/16/21 11:31 94 Vapotherm 40.00 100 04/16/21 11:00 87 40 120/76 (91) 90 Vapotherm 40.00 100.00 04/16/21 10:34 93 Vapotherm 35.00 100 04/16/21 10:00 79 19 114/76 (89) 96 Vapotherm 40.00 100.00 04/16/21 09:11 97 04/16/21 09:00 93 24 124/84 (97) 95 Vapotherm 40.00 100.00 04/16/21 08:00 35.8 103 22 92/58 (69) 98 Vapotherm 40.00 100.00 04/16/21 08:00 95 Vapotherm 40.00 100 04/16/21 07:04 96 Vapotherm 40.00 100 04/16/21 03:09 35.8 86 30 139/78 (98) 92 Vapotherm 40.00 100.00 04/16/21 01:12 89 Vapotherm 40.00 100 04/16/21 00:36 70 97/67 (77) 88 High Flow N/C 8.00 04/15/21 23:00 36.9 69 16 100/64 (76) 90 High Flow N/C 8.00 04/15/21 22:31 36.3 04/15/21 20:55 92 High Flow N/C 5.00 04/15/21 19:43 92 High Flow N/C 5.00 04/15/21 19:26 36.3 87 20 114/49 (70) 90 Nasal Cannula 5.00 04/15/21 18:51 37.6 105 90 04/15/21 16:40 37.6 105 20 129/86 (100) 90 Nasal Cannula 5.00 04/15/21 16:33 90 Nasal Cannula 5.00 04/15/21 15:35 37.8 96 22 146/76 (96) 93 Nasal Cannula 3.00 04/15/21 15:30 37.8 96 22 143/71 92 Nasal Cannula 3.00 04/15/21 15:15 95 21 146/76 92 Nasal Cannula 3.00 04/15/21 15:00 96 22 133/73 91 Nasal Cannula 3.00 04/15/21 14:45 96 24 149/89 93 Nasal Cannula 3.00 04/15/21 14:30 93 23 135/82 94 Nasal Cannula 3.00 04/15/21 14:15 96 21 135/67 94 Nasal Cannula 3.00 04/15/21 14:00 94 23 147/80 93 Nasal Cannula 3.00 04/15/21 13:50 38.0 93 24 136/77 (96) 92 Room Air 3.00 04/15/21 13:50 38.0 93 24 136/77 92 Room Air 3.00 I & O 04/16/21 06:59 Intake Total 580 ml Output Total 100 ml Balance 480 ml Height & Weight Height: '" Weight: lbs. oz. kg; 47.01 BMI Method: General Appearance: No Apparent Distress, WD/WN HEENT: PERRL/EOMI, Normal ENT Inspection Neck: Normal Inspection, Non Tender Respiratory: Chest Non Tender, Lungs Clear, Normal Breath Sounds, No Accessory Muscle Use, No Respiratory Distress Cardiovascular: Regular Rate, Rhythm, No JVD Capillary Refill: Less Than 3 Seconds Extremity: Normal Capillary Refill, Normal Range of Motion, Non Tender Neurologic/Psychiatric: Alert, Oriented x3, No Motor/Sensory Deficits Skin: Normal Color, Warm/Dry Results Lab Laboratory Tests 04/15/21 14:05 04/16/21 09:25 Assessment/Plan Assessment/Plan (Tele-ICU Physician , consultation) Available chart/ vitals / labs / Images reviewed H&P is from ER notes Patient's information available about PMH, Shx, Fhx allergy reviewed in EMR. ROS as per chart and RN report Patient admitted 04/15 - COVID 3 L o2 04/16 - to ICU VAPOTHERM 40 L 100% Now in ICU, hemodynamically stable Video assessment done using teleICU camera, rest of exam as per RN Discussed with RN. Consultants: A/P Acute resp failure - COVID + suspected bact PNA ? -Vapotherm 40 L 100 % - prone is diffucult for her - trying sides - keep even I/O COVID PNA - dx 7 d ago - steroids IV - remdesivir - ? outside of the Tx window - ddimer 0.6 on 04/16 - proph lovenox -> will repeat today RUL infiltrate - suspected bact infection - check PCT - low treshould to start ABX DM II - ISS Transaminases elevation - probably due to COVID Lines : , (Central Line Necessity Reviewed) Manjarrez: OG: Nutrition: po Analgesia: lortab Anxiety/ delirium xanax VTE Prophylaxis: lovenox Stress Ulcer Prophylaxis: PPI po Glycemic Control: + Plans in collaboration with bedside consultants and IM MDs. Discussed with RN to reach out if any questions or concerns A total of 37 minutes of critical care time was devoted to this patient today, required to treat and/or prevent further deterioration of critical care condition ( as above ) . HUI NAIK MD Apr 16, 2021 12:32
--- NOTE | 2021-04-16 17:58 | History & Physical-Hospitalist ---
History of Present Illness HPI/Chief Complaint Marie Pillai is a 60 year old female with PMH HTN, insulin dependent T2DM, migraines, morbid obesity, who presented with shortness of breath. She was recently diagnosed with COVID-19. She has not been on any medications for COVID. She also has a cough. She reports fevers and chills. She has not had much of an appetite. She denies chest pain. Source: patient Exam Limitations: clinical condition Date Seen 04/16/21 Time Seen by a Provider: 09:30 Attending Physician Ann Marie Fuentes MD PCP Sonido Johnson MD Referring Physician Date of Admission Apr 15, 2021 at 16:20 Home Medications & Allergies Home Medications Reviewed patient Home Medication Reconciliation performed by pharmacy medication reconciliations telegraph repeater technician and/or nursing. Patients Allergies have been reviewed. Allergies Allergies Coded Allergies albuterol (Verified Allergy, Unknown, 04/16/21) throat swelling amitriptyline (Verified Allergy, Unknown, 11/04/19) diphenhydramine (Verified Allergy, Unknown, 11/04/19) fentanyl (Verified Allergy, Unknown, 11/04/19) ketorolac (Verified Allergy, Unknown, 11/04/19) Past Rtiexfj-Eclurz-Cmrisf Hx Patient Social History Tobacco Use?: No Use of E-Cig and/or Vaping dev: No Substance use?: No Alcohol Use?: No Alcohol Frequency: Rarely Pt feels they are or have been: No Immunizations Up To Date Tetanus Booster (TDap): Less Than 5 Years Hepatitis A: No Hepatitis B: No Seasonal Allergies Seasonal Allergies: No Current Status status: No Advance Directives: No Advance Directive Location: Home Communicates: Verbally Primary Language: Zambian Preferred Spoken Language: Zambian Is interpretation needed?: No Sensory deficits: Vision impairment Implanted or Applied Medical D: None Past Medical History Surgeries: Gallbladder Heart Attack, Hypertension 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 Gastroesophageal Reflux, Diverticulosis Diabetes, Insulin dep Blood Disorders: No Family Medical History No Pertinent Family Hx Review of Systems Constitutional: fever, malaise, weakness EENTM: no symptoms reported Respiratory: cough, short of breath Cardiovascular: no symptoms reported Gastrointestinal: no symptoms reported Genitourinary: no symptoms reported Musculoskeletal: no symptoms reported Skin: no symptoms reported Psychiatric/Neurological: No Symptoms Reported Physical Exam Physical Exam Vital Signs Vital Signs - First Documented 04/16/21 01:12 FiO2 100 Capillary Refill : Less Than 3 Seconds Height, Weight, BMI Height: '" Weight: lbs. oz. kg; 47.01 BMI Method: General Appearance: No Apparent Distress, Obese HEENT: PERRL/EOMI, Pharynx Normal Neck: Normal Inspection, Supple Respiratory: Lungs Clear, Normal Breath Sounds, No Respiratory Distress Cardiovascular: Regular Rate, Rhythm, No Edema, No Murmur Gastrointestinal: Normal Bowel Sounds, Non Tender, Soft Extremity: Normal Inspection, Non Tender, No Pedal Edema Neurologic/Psychiatric: Alert, Oriented x3, No Motor/Sensory Deficits, Normal Mood/Affect Skin: Normal Color, Warm/Dry Lymphatic: No Adenopathy Results Results/Procedures Labs Laboratory Tests 04/15/21 14:05 04/16/21 09:25 Patient resulted labs reviewed. Imaging: Reviewed Imaging Report Assessment/Plan Admission Diagnosis Acute respiratory failure due to COVID-19 Admission Status: Inpatient Order (span 2 midnights) Reason for Inpatient Admission: Requiring supplemental oxygen Assessment and Plan Acute respiratory failure due to COVID-19 Pneumonia due to COVID-19 Lymphopenia associated with COVID-19 Elevated LFTs Elevated d-dimer COVID positive at outside facility Chest xray with bilateral opacities Procalcitonin normal x2, antibiotics not indicated LFTs mildly elevated, monitor Ddimer mildly elevated, monitor Started on Decadron Remdesivir not indicated due to severity of hypoxia Convalescent plasma ordered, discussed risks/benefits/EUA use and patient agrees Requiring Vapotherm, maximal support, may require intubation in the near future TeleICU consulted, appreciate assistance T2DM Levemir Novolog with meals Sliding scale insulin HTN Continue home meds DVT prophylaxis: Lovenox Critical Care Critically Ill Patient Diagnosis/Problems Diagnosis/Problems (1) Pneumonia due to COVID-19 virus Status: Acute (2) Acute respiratory failure due to COVID-19 Status: Acute (3) Lymphopenia associated with COVID-19 Status: Acute (4) Elevated LFTs Status: Acute (5) Elevated d-dimer Status: Acute (6) Morbid obesity Status: Chronic (7) HTN (hypertension) Status: Chronic (8) T2DM (type 2 diabetes mellitus) Status: Chronic ANN MARIE FUENTES MD Apr 16, 2021 17:58
[2021-04-17] VITALS (28 sets, daily range): BP systolic 82–263; BP diastolic 45–95
[2021-04-17] MEDS: RT-LEVALBUTEROL (XOPENEX) 1.25 MG/3 ML NEB NON-FORMULARY INH SCH ×6 (02:13→22:30)
[2021-04-17] MEDS: ONDANSETRON 4 MG/2 ML (SDV) Z0FRAN IVP PRN ×2 (03:44→09:04)
[2021-04-17 04:11] LABS: BASOPHILS % (AUTO) 0 % (0-10); EOSINOPHILS % (AUTO) 0 % (0-10); HEMATOCRIT 46 % (35-52); HEMOGLOBIN 14.5 g/dL (11.5-16.0); LYMPHOCYTES # (AUTO) 0.5 10^3/uL (1.0-4.0); LYMPHOCYTES % (AUTO) 6 % (12-44); MEAN CORPUSCULAR HEMOGLOBIN 28 pg (25-34); MEAN CORPUSCULAR HGB CONC 32 g/dL (32-36); MEAN CORPUSCULAR VOLUME 87 fL (80-99); MEAN PLATELET VOLUME 10.3 fL (9.0-12.2); MONOCYTES # (AUTO) 0.6 10^3/uL (0.0-1.0); MONOCYTES % (AUTO) 7 % (0-12); NEUTROPHILS # (AUTO) 7.2 10^3/uL (1.8-7.8); NEUTROPHILS % (AUTO) 86 % (42-75); PLATELET COUNT 263 10^3/uL (130-400); WHITE BLOOD COUNT 8.3 10^3/uL (4.3-11.0)
[2021-04-17 04:22] LABS: ALBUMIN 3.6 GM/DL (3.2-4.5); CHLORIDE 97 MMOL/L (98-107); POTASSIUM 3.9 MMOL/L (3.6-5.0); SODIUM 138 MMOL/L (135-145)
[2021-04-17 04:23] LABS: CALCIUM 8.6 MG/DL (8.5-10.1)
[2021-04-17 04:24] LABS: GLUCOSE 269 MG/DL (70-105)
[2021-04-17 04:25] LABS: CARBON DIOXIDE 27 MMOL/L (21-32)
[2021-04-17 04:26] LABS: BILIRUBIN,TOTAL 0.4 MG/DL (0.1-1.0)
[2021-04-17 04:28] LABS: ALKALINE PHOSPHATASE 99 U/L (40-136); CREATININE SERUM 0.77 MG/DL (0.60-1.30); GFR ESTIMATED > 60
[2021-04-17 04:29] LABS: BUN/CREATININE RATIO 19
[2021-04-17 04:31] LABS: ALANINE AMINOTRANSFERASE 76 U/L (0-55); MAGNESIUM 2.4 MG/DL (1.6-2.4)
[2021-04-17] MEDS: inSUlin ASPART (NovoLOG) 1 UNIT/0.01 ML (CHARGE PER UNIT) SC SCH ×6 (06:10→18:17)
[2021-04-17] MEDS: ASPIRIN E.C. 81 MG (ECOTRIN) TAB PO SCH (08:51)
[2021-04-17] MEDS: ENOXAPARIN 40 MG/0.4 ML (LOVENOX) SYR SC SCH ×2 (08:52→20:22)
[2021-04-17] MEDS: ASCORBIC ACID (VIT C) 500 MG TABLET PO SCH ×2 (08:52→20:22)
[2021-04-17] MEDS: FAMOTIDINE 20 MG (PEPCID) TABLET PO SCH (08:52)
[2021-04-17] MEDS: PANTOPRAZOLE 20 MG TABLET (PROTONIX) PO SCH (08:52)
--- NOTE | 2021-04-17 09:43 | Tele-ICU Progress Note ---
Subjective Date Seen by a Provider: Apr 17, 2021 Time Seen by a Provider: 09:43 Sepsis Event Evaluation Height, Weight, BMI Height: '" Weight: lbs. oz. kg; 47.01 BMI Method: Focused Exam Lactate Level 04/15/21 14:05: Lactic Acid Level 1.60 Exam Exam Patient acknowledged, consented, and participated in this virtual visit which wa s conducted using real time audio/video Vital Signs Date Time Temp Pulse Resp B/P (MAP) Pulse Ox O2 Delivery O2 Flow Rate FiO2 04/17/21 09:00 111 20 155/82 (106) 83 Vapotherm 40.00 100.00 04/17/21 08:00 89 33 121/66 (84) 90 Vapotherm 40.00 100.00 04/17/21 07:56 37.7 04/17/21 07:00 94 20 127/69 (88) 92 Vapotherm 40.00 100.00 04/17/21 06:54 93 High Flow N/C 40.00 04/17/21 06:41 95 04/17/21 06:00 96 28 122/74 (90) 96 Vapotherm 40.00 100.00 04/17/21 05:00 90 26 110/74 (86) 92 Vapotherm 40.00 100.00 04/17/21 04:00 80 21 130/78 (95) 88 Vapotherm 40.00 100.00 04/17/21 04:00 92 Vapotherm 40.00 100 04/17/21 03:00 77 25 116/75 (89) 92 Vapotherm 40.00 100.00 04/17/21 02:13 94 High Flow N/C 40.00 04/17/21 02:00 73 124/95 (105) 94 Vapotherm 40.00 100.00 04/17/21 01:00 75 35 123/80 (94) 94 Vapotherm 40.00 100.00 04/17/21 01:00 75 04/17/21 00:59 36.4 04/17/21 00:00 92 Vapotherm 40.00 100 04/17/21 00:00 80 23 126/74 (91) 92 Vapotherm 40.00 100.00 04/16/21 23:00 79 22 107/51 (69) 94 Vapotherm 40.00 100.00 04/16/21 22:25 94 Vapotherm 40.00 100 04/16/21 22:00 80 21 96/57 (70) 93 Vapotherm 40.00 100.00 04/16/21 21:00 92 14 118/76 (90) 91 Vapotherm 40.00 100.00 04/16/21 20:00 96 29 135/74 (94) 92 Vapotherm 40.00 100.00 04/16/21 20:00 91 Vapotherm 40.00 100 04/16/21 19:38 36.4 04/16/21 19:00 93 17 139/67 (91) 94 Vapotherm 40.00 100.00 04/16/21 19:00 90 04/16/21 18:57 94 Vapotherm 40.00 100 04/16/21 18:00 92 11 134/63 (86) 92 Vapotherm 40.00 100.00 04/16/21 17:00 87 27 118/88 (98) 93 Vapotherm 40.00 100.00 04/16/21 16:00 95 Vapotherm 40.00 100 04/16/21 16:00 92 11 112/80 (91) 96 Vapotherm 40.00 100.00 04/16/21 15:51 36.4 04/16/21 15:07 96 Vapotherm 40.00 100 04/16/21 15:00 65 15 109/65 (80) 95 Vapotherm 40.00 100.00 04/16/21 14:00 71 24 111/64 (80) 89 Vapotherm 40.00 100.00 04/16/21 13:00 72 17 101/67 (78) 94 Vapotherm 40.00 100.00 04/16/21 12:51 71 04/16/21 12:00 72 11 101/60 (74) 93 Vapotherm 40.00 100.00 04/16/21 11:31 94 Vapotherm 40.00 100 04/16/21 11:00 87 40 120/76 (91) 90 Vapotherm 40.00 100.00 04/16/21 10:34 93 Vapotherm 35.00 100 04/16/21 10:00 79 19 114/76 (89) 96 Vapotherm 40.00 100.00 I & O 04/17/21 07:00 Intake Total 1195 ml Output Total 1025 ml Balance 170 ml Height & Weight Height: '" Weight: lbs. oz. kg; 47.01 BMI Method: General Appearance: No Apparent Distress, Obese HEENT: PERRL/EOMI, Pharynx Normal Neck: Normal Inspection, Supple Respiratory: Lungs Clear, Normal Breath Sounds, No Respiratory Distress Cardiovascular: Regular Rate, Rhythm, No Edema, No Murmur Capillary Refill: Less Than 3 Seconds Extremity: Normal Inspection, Non Tender, No Pedal Edema Neurologic/Psychiatric: Alert, Oriented x3, No Motor/Sensory Deficits, Normal Mood/Affect Skin: Normal Color, Warm/Dry Lymphatic: No Adenopathy Results Lab Laboratory Tests 04/15/21 14:05 04/16/21 09:25 04/17/21 03:50 Assessment/Plan Assessment/Plan (Tele-ICU Physician , Progress Note ) Available chart/ vitals / labs / Images reviewed Video assessment done using teleICU camera, rest of exam as per RN Discussed with RN Events overnight : MILD ANXIETY Afebrile hemodynamically stable, no pressors, I/O = POS 300 Drips: As per RN exam : NO WHEEZING , NO EDEMA , AAO Consultants: Hospital course: 04/15 - COVID 3 L o2 04/16 - to ICU VAPOTHERM 40 L 100% 04/17 - DESATS ON vt40l 100% - BIPAP to try Now in ICU, hemodynamically stable Video assessment done using teleICU camera, rest of exam as per RN Discussed with RN. Consultants: A/P Acute resp failure - COVID + suspected bact PNA ? -Vapotherm 40 L 100 % - WILL TRY BIAPAP PRN - prone is diffucult for her - trying sides - keep even I/O -HIGH RISK FOR INTUBATION COVID PNA - dx 7 d ago - steroids IV - remdesivir - ? outside of the Tx window - ddimerLOW 04/16 - proph lovenox RUL infiltrate - suspected bact infection - low PCT - off ABX , low treshould to start ABX DM II - ISS Transaminases elevation - probably due to COVID Lines : priph (Central Line Necessity Reviewed) consider PICC Manjarrez: OG: Nutrition: po Analgesia: lortab Anxiety/ delirium xanax VTE Prophylaxis: lovenox Stress Ulcer Prophylaxis: PPI po Glycemic Control: + Plans in collaboration with bedside consultants and IM MDs. Discussed with RN to reach out if any questions or concerns A total of 37 minutes of critical care time was devoted to this patient today, required to treat and/or prevent further deterioration of critical care condition ( as above HUI NAIK MD Apr 17, 2021 09:43
--- NOTE | 2021-04-17 10:00 | Diagnostic Imaging Report ---
INDICATION: Hypoxemia EXAM: Portable chest at 2:48 AM There are bilateral pulmonary infiltrates greater on the right than on the left. These appear worse compared to the exam done on 04/15/2021. There is no appreciable effusion or pneumothorax. IMPRESSION: Worsening bilateral pulmonary infiltrates consistent with pneumonia. Dictated by: Dictated on workstation # [id number]
[2021-04-17] MEDS: SENNA W/DOCUSATE (SENOKOT S) TABLET PO SCH (11:16)
[2021-04-17] MEDS: LACTATED RINGERS 1,000 ML IV SCH ×2 (11:56→18:18)
[2021-04-17] MEDS: DexMEDEtomidine 250 ML DRIP 250 ML IV SCH (12:00)
[2021-04-17] MEDS ORDERED: PROPOFOL DRIP (ICU) 100 ML IV ONE (13:38)
--- NOTE | 2021-04-17 14:01 | Physical Therapy Progress Note ---
Therapy Progress Note Order received for PT eval. Patient was recently intubated. Will continue to monitor and start when appropriate. ROBERTO LAWS PT Apr 17, 2021 14:01
[2021-04-17] MEDS ORDERED: NS IV 1000 ML 1,000 ML ONE (14:03)
--- NOTE | 2021-04-17 14:08 | Occ Therapy Progress Note ---
Therapy Progress Note OT orders received. Pt is in the process of being intubated. OT will continue to monitor pt, and initiate therapy when pt is more medically stable and able to actively participate in skilled therapy. HIRAL AHUJA OT Apr 17, 2021 14:08
--- NOTE | 2021-04-17 14:43 | Anesthesia-Procedure Note ---
Procedures/Interventions Procedure Start/Stop/Diagnosis Date of Procedure: Apr 17, 2021 Start Time: 14:00 Stop Time: 14:29 Intubation RSI: Yes 100% pre-Ox, [id number]: Yes Intubation Method: orotracheal Videoscope used: Yes Grade View: 2 Medications: Etomidate, Propofol, Rocuronium, Succinylcholine, Versed Mask Ventilation: positive Positive End Tide CO2: Yes Breath Sounds after Intubation: bilateral-equal ETT Securred @ (cm): 22 Intubated with ease: Yes Intubation Complications: no complications Post Intubation Xray-done: Yes Arterial Line Arterial Line Catheter: 20G Type: Radial Procedure: prepped, draped in sterile fashion, good wave-form was obtained, patient tolerated procedure well, no immediate complications DAKOTAH TEMPLETON CRNA Apr 17, 2021 14:43
--- NOTE | 2021-04-17 14:51 | Progress Note - Hospitalist ---
Subjective HPI/CC On Admission Date Seen by Provider: Apr 17, 2021 Time Seen by Provider: 11:15 Marie Pillai is a 60 year old female with PMH HTN, insulin dependent T2DM, migraines, morbid obesity, who presented with shortness of breath. She was recently diagnosed with COVID-19. She has not been on any medications for COVID. She also has a cough. She reports fevers and chills. She has not had much of an appetite. She denies chest pain. Subjective/Events-last exam She is feeling anxious. She is willing to try the BiPAP. She is short of breath. She still has a cough. Focused Exam Lactate Level 04/15/21 14:05: Lactic Acid Level 1.60 Objective Exam Vital Signs Vital Signs Date Time Temp Pulse Resp B/P (MAP) Pulse Ox O2 Delivery O2 Flow Rate FiO2 04/17/21 14:00 86 31 82/50 (61) 85 NIV Bilevel 100.00 04/17/21 11:23 37.7 04/17/21 08:00 100 Capillary Refill : Less Than 3 Seconds General Appearance: Anxious, Mild Distress (Uncomfortable, tachypneic), Obese Respiratory: No Respiratory Distress, Decreased Breath Sounds Cardiovascular: Regular Rate, Rhythm, No Murmur Gastrointestinal: Normal Bowel Sounds, Non Tender, Soft Extremity: Normal Inspection, Non Tender, Pedal Edema Neurologic/Psychiatric: Alert, Oriented x3 Skin: Normal Color, Warm/Dry Results/Procedures Lab Laboratory Tests 04/17/21 03:50 Patient resulted labs reviewed. Imaging: Reviewed Imaging Report Assessment/Plan Assessment and Plan Assess & Plan/Chief Complaint Acute respiratory failure due to COVID-19 Pneumonia due to COVID-19 Lymphopenia associated with COVID-19 Elevated LFTs Elevated d-dimer COVID positive at outside facility Chest xray with bilateral opacities Procalcitonin normal x2, antibiotics not indicated LFTs mildly elevated, monitor Ddimer mildly elevated, monitor Continue Decadron Remdesivir not indicated due to severity of hypoxia Awaiting convalescent plasma Requiring Vapotherm, still hypoxic with maximal support, attempt BiPAP, may require intubation in the near future TeleICU consulted, appreciate assistance T2DM Continue Levemir Novolog with meals Sliding scale insulin HTN Continue home meds DVT prophylaxis: Lovenox Critical Care Critically Ill Patient Diagnosis/Problems Diagnosis/Problems (1) Pneumonia due to COVID-19 virus Status: Acute (2) Acute respiratory failure due to COVID-19 Status: Acute (3) Lymphopenia associated with COVID-19 Status: Acute (4) Elevated LFTs Status: Acute (5) Elevated d-dimer Status: Acute (6) Morbid obesity Status: Chronic (7) HTN (hypertension) Status: Chronic (8) T2DM (type 2 diabetes mellitus) Status: Chronic JUANI FUENTES MD Apr 17, 2021 14:51
[2021-04-17] MEDS ORDERED: NOREPINEPHRINE 8 MG/250 ML 250 ML IV ONE (14:52)
--- NOTE | 2021-04-17 14:52 | Diagnostic Imaging Report ---
INDICATION: Post intubation. TECHNIQUE: Frontal chest obtained at 02:28 p.m. and compared to same day at 02:48 a.m. FINDINGS: ET tube is now seen with tip overlying midtrachea. There are patchy extensive bilateral infiltrates which are about the same. There is no pneumothorax or pleural fluid. NG tube tip overlies proximal stomach. IMPRESSION: No change in extensive bilateral infiltrates compared to earlier today. New ET tube and NG tube, as described above. Dictated by: Dictated on workstation # [id number]
[2021-04-17] MEDS: NOREPINEPHRINE 8 MG/250 ML 250 ML IV SCH (15:00)
[2021-04-17] MEDS ORDERED: ROCURONIUM 10 MG/ML 5 ML SYRINGE IV ONE (16:28)
[2021-04-17] MEDS ORDERED: MIDAZOLAM 5 MG/5 ML (VERSED) VIAL INJ ONE (16:28)
[2021-04-17] MEDS ORDERED: ETOMIDATE IV SOLN 20 MG/10 ML VIAL IV ONE (16:28)
[2021-04-17] MEDS ORDERED: SUCCINYLCHOLINE INJ 100 MG/5 ML SYR/VIAL INJ ONE (16:28)
[2021-04-17] MEDS: PROPOFOL DRIP (ICU) 100 ML IV SCH ×2 (17:57→22:04)
[2021-04-17 18:38] LABS: ABG BASE EXCESS 3.2 MMOL/L (-2.5-2.5); ABG OXYGEN SATURATION 98 % (94-100); ABG PCO2 30 MMHG (35-45); ABG PH 7.54 (7.37-7.43); ABG PO2 105 MMHG (79-93); ABG TCO2 26.6 MMOL/L (21.0-31.0)
[2021-04-17 18:39] LABS: INSPIRED O2 100%; PATIENT TEMP 37.4; VENTILATOR YES
[2021-04-17] MEDS: polyethylene glycoL POWDER 17 GM (MIRALAX) PACK PO SCH (20:22)
[2021-04-17] MEDS: guaiFENesin (MUCINEX) 600 MG TAB PO SCH (20:22)
[2021-04-18] VITALS (32 sets, daily range): BP systolic 109–151; BP diastolic 54–76
[2021-04-18] MEDS: inSUlin ASPART (NovoLOG) 1 UNIT/0.01 ML (CHARGE PER UNIT) SC SCH ×4 (00:09→18:47)
[2021-04-18] MEDS: PROPOFOL DRIP (ICU) 100 ML IV SCH ×5 (01:43→18:04)
[2021-04-18] MEDS: RT-LEVALBUTEROL (XOPENEX) 1.25 MG/3 ML NEB NON-FORMULARY INH SCH ×6 (02:36→21:08)
[2021-04-18] MEDS: NOREPINEPHRINE 8 MG/250 ML 250 ML IV SCH ×2 (03:20→16:38)
[2021-04-18] MEDS: DexMEDEtomidine 250 ML DRIP 250 ML IV SCH ×2 (03:43→14:02)
[2021-04-18 04:01] LABS: BASOPHILS % (AUTO) 0 % (0-10); EOSINOPHILS % (AUTO) 0 % (0-10); HEMATOCRIT 42 % (35-52); HEMOGLOBIN 13.8 g/dL (11.5-16.0); LYMPHOCYTES # (AUTO) 0.3 10^3/uL (1.0-4.0); LYMPHOCYTES % (AUTO) 5 % (12-44); MEAN CORPUSCULAR HEMOGLOBIN 28 pg (25-34); MEAN CORPUSCULAR HGB CONC 33 g/dL (32-36); MEAN CORPUSCULAR VOLUME 83 fL (80-99); MEAN PLATELET VOLUME 9.9 fL (9.0-12.2); MONOCYTES # (AUTO) 0.4 10^3/uL (0.0-1.0); MONOCYTES % (AUTO) 6 % (0-12); NEUTROPHILS # (AUTO) 5.5 10^3/uL (1.8-7.8); NEUTROPHILS % (AUTO) 88 % (42-75); PLATELET COUNT 288 10^3/uL (130-400); WHITE BLOOD COUNT 6.3 10^3/uL (4.3-11.0)
[2021-04-18 04:02] LABS: ABG OXYGEN SATURATION 96 % (94-100); ABG PCO2 24 MMHG (35-45); ABG PO2 76 MMHG (79-93); ABG TCO2 24.4 MMOL/L (21.0-31.0)
[2021-04-18 04:07] LABS: ABG PH 7.61 (7.37-7.43); ALLENS TEST ART LINE; INSPIRED O2 50%; PATIENT TEMP 37.5; VENTILATOR YES
[2021-04-18 04:14] LABS: CHLORIDE 102 MMOL/L (98-107); POTASSIUM 3.5 MMOL/L (3.6-5.0); SODIUM 136 MMOL/L (135-145)
[2021-04-18 04:15] LABS: CALCIUM 8.3 MG/DL (8.5-10.1)
[2021-04-18 04:16] LABS: GLUCOSE 321 MG/DL (70-105)
[2021-04-18 04:17] LABS: CARBON DIOXIDE 20 MMOL/L (21-32)
[2021-04-18 04:19] LABS: GFR ESTIMATED > 60
[2021-04-18 04:20] LABS: BUN/CREATININE RATIO 16
[2021-04-18 04:22] LABS: MAGNESIUM 2.1 MG/DL (1.6-2.4)
[2021-04-18] MEDS: MAGNESIUM 1 GM/100 ML IVPB 100 ML IV SCH (04:56)
[2021-04-18] MEDS: POTASSIUM CL 10MEQ/50ML IVPB 50 ML IV SCH ×3 (04:56→07:29)
[2021-04-18] MEDS: KCL 20 MEQ TAB (K-DUR) PO SCH (04:56)
--- NOTE | 2021-04-18 05:17 | Diagnostic Imaging Report ---
INDICATION: Intubation, pulmonary infiltrates COMPARISON: 04/17/2021 TECHNIQUE: Single radiograph of the chest dated 04/18/2021. FINDINGS: Endotracheal tube and enteric catheter are again identified. Interval placement of a right-sided PICC line with the distal tip terminating overlying the expected location of the cavoatrial junction. No pneumothorax. The cardiac silhouette is within normal limits in size. Pulmonary vasculature is obscured. Extensive right greater than left pulmonary opacities are again identified, not significantly changed from the prior examination. No significant pleural effusion. No pneumothorax. No acute osseous abnormality. IMPRESSION: Placement of right-sided PICC line with the distal tip terminating overlying the cavoatrial junction without pneumothorax. Persistent extensive right greater than left bilateral pulmonary infiltrates. Dictated by: Dictated on workstation # [id number]
[2021-04-18] MEDS: LACTATED RINGERS 1,000 ML IV SCH ×2 (06:00→17:02)
--- NOTE | 2021-04-18 06:51 | Occ Therapy Progress Note ---
Therapy Progress Note Pt is currently intubated. OT will monitor pt status and initiate treatment when pt is medically stable and able to actively participate in skilled therapy. MADISYN ROGERS Apr 18, 2021 06:51
[2021-04-18 07:39] LABS: ABG BASE EXCESS 3.6 MMOL/L (-2.5-2.5); ABG OXYGEN SATURATION 94 % (94-100); ABG PCO2 37 MMHG (35-45); ABG PH 7.48 (7.37-7.43); ABG PO2 71 MMHG (79-93); ABG TCO2 28.1 MMOL/L (21.0-31.0)
[2021-04-18 07:40] LABS: INSPIRED O2 60%; PATIENT TEMP 37.2; VENTILATOR NO
--- NOTE | 2021-04-18 07:46 | Physical Therapy Progress Note ---
Therapy Progress Note Patient currently sedated and intubated. PT will continue to monitor patient status. JACOB RODRIGUEZ PT Apr 18, 2021 07:46
[2021-04-18] MEDS: ENOXAPARIN 40 MG/0.4 ML (LOVENOX) SYR SC SCH ×2 (08:40→20:58)
[2021-04-18] MEDS: guaiFENesin (MUCINEX) 600 MG TAB PO SCH ×2 (08:40→20:58)
[2021-04-18] MEDS: PANTOPRAZOLE 20 MG TABLET (PROTONIX) PO SCH (08:40)
[2021-04-18] MEDS: ASCORBIC ACID (VIT C) 500 MG TABLET PO SCH ×2 (08:41→20:59)
[2021-04-18] MEDS: FAMOTIDINE 20 MG (PEPCID) TABLET PO SCH (08:41)
[2021-04-18] MEDS: ASPIRIN E.C. 81 MG (ECOTRIN) TAB PO SCH (08:41)
--- NOTE | 2021-04-18 09:25 | Tele-ICU Progress Note ---
Subjective Date Seen by a Provider: Apr 18, 2021 Time Seen by a Provider: 09:00 Subjective/Events-last exam Rounded virtually with STEVEN Ricketts: VSS. Doing better with pressors stopped and FiO2 decreaed to 50%, PEEP down to 10. Sepsis Event Evaluation Sepsis Stage: Sepsis Possible Source: Pulmonary Height, Weight, BMI Height: '" Weight: lbs. oz. kg; 47.01 BMI Method: Bedside Monitoring CVP Measures: 8-12 ScvO2 measures: Greater than 70% Bedside Ultrasound Performed: No Passive Leg Raise/Fluid Bolus: Not Performed Focused Exam Sepsis Stage: Sepsis Possible Source: Pulmonary Lactate Level 04/15/21 14:05: Lactic Acid Level 1.60 Time of Focused Exam: 09:00 Peripheral Pulses: 1+ Dorsalis Pedis (R), 1+ Left Dors-Pedis (L) (see free text note.), 1+ Radial Pulses (R) Exam Exam Patient acknowledged, consented, and participated in this virtual visit which was conducted using real time audio/video Vital Signs Date Time Temp Pulse Resp B/P (MAP) Pulse Ox O2 Delivery O2 Flow Rate FiO2 04/18/21 09:00 58 16 120/58 (78) 100 Mechanical Ventilator 50.00 04/18/21 08:00 72 16 129/62 (84) 94 Mechanical Ventilator 50.00 04/18/21 07:28 37.2 Mechanical Ventilator 50.00 04/18/21 07:04 71 16 96 50 04/18/21 07:00 71 04/18/21 07:00 71 16 131/63 (85) 96 Mechanical Ventilator 50.00 04/18/21 06:01 78 134/62 04/18/21 06:00 71 16 129/61 (83) 95 Mechanical Ventilator 50.00 04/18/21 05:00 78 16 134/62 (86) 96 Mechanical Ventilator 50.00 04/18/21 05:00 93 Vapotherm 30.00 50 04/18/21 04:39 96 50 04/18/21 04:00 84 20 109/54 (72) 96 Mechanical Ventilator 50.00 04/18/21 04:00 96 Mechanical Ventilator 50 04/18/21 04:00 37.6 04/18/21 03:43 76 111/58 04/18/21 03:00 82 20 133/59 (83) 97 Mechanical Ventilator 50.00 04/18/21 02:36 76 20 96 50 04/18/21 02:00 79 20 112/55 (74) 98 Mechanical Ventilator 50.00 04/18/21 01:55 Mechanical Ventilator 50.00 04/18/21 01:43 96 121/59 04/18/21 01:00 85 20 112/56 (74) 97 Mechanical Ventilator 60.00 04/18/21 01:00 86 04/18/21 00:14 38.0 04/18/21 00:00 96 20 121/59 (79) 96 Mechanical Ventilator 60.00 04/18/21 00:00 93 Mechanical Ventilator 60 04/17/21 23:00 98 20 115/56 (75) 93 Mechanical Ventilator 60.00 04/17/21 22:30 80 20 94 60 04/17/21 22:06 Mechanical Ventilator 60.00 04/17/21 22:04 77 128/61 04/17/21 22:00 73 20 124/59 (80) 95 Mechanical Ventilator 65.00 04/17/21 21:00 76 26 121/58 (79) 95 Mechanical Ventilator 65.00 04/17/21 20:37 Mechanical Ventilator 65.00 04/17/21 20:15 Mechanical Ventilator 70.00 04/17/21 20:00 77 20 128/61 (83) 97 Mechanical Ventilator 80.00 04/17/21 20:00 97 Mechanical Ventilator 80 04/17/21 19:35 37.5 77 20 119/54 (75) 97 Mechanical Ventilator 80.00 04/17/21 19:00 80 04/17/21 18:47 73 20 97 80 04/17/21 18:00 71 16 129/53 (78) 97 Mechanical Ventilator 100.00 04/17/21 17:57 71 132/55 04/17/21 17:00 73 20 126/53 (77) 98 Mechanical Ventilator 100.00 04/17/21 16:30 95 Mechanical Ventilator 100 04/17/21 16:14 36.8 04/17/21 16:00 70 43 96/45 (62) 96 Mechanical Ventilator 100.00 04/17/21 15:00 89 20 263/93 (149) 98 Mechanical Ventilator 100.00 04/17/21 15:00 71 75/44 04/17/21 14:45 77 20 95 100 04/17/21 14:00 86 31 82/50 (61) 85 NIV Bilevel 100.00 04/17/21 13:00 74 22 90/56 (67) 88 NIV Bilevel 100.00 04/17/21 12:30 78 04/17/21 12:25 NIV Bilevel 100.00 04/17/21 12:03 78 24 92 100.00 04/17/21 12:00 90 NIV Bilevel 40.00 100 04/17/21 12:00 85 103/51 04/17/21 12:00 77 23 96/56 (69) 90 Vapotherm 40.00 100.00 04/17/21 11:23 37.7 04/17/21 11:00 84 101/53 (69) 95 Vapotherm 40.00 100.00 04/17/21 10:00 87 26 113/69 (84) 91 Vapotherm 40.00 100.00 I & O 04/18/21 07:00 Intake Total 300 ml Output Total 2475 ml Balance -2175 ml Height & Weight Height: '" Weight: lbs. oz. kg; 47.01 BMI Method: General Appearance: Anxious, Mild Distress (Uncomfortable, tachypneic), Obese HEENT: PERRL/EOMI, Pharynx Normal Neck: Normal Inspection, Supple Respiratory: No Respiratory Distress, Decreased Breath Sounds Cardiovascular: Regular Rate, Rhythm, No Murmur Capillary Refill: Less Than 3 Seconds Peripheral Pulses: 1+ Dorsalis Pedis (R), 1+ Left Dors-Pedis (L) (see free text) Extremity: Normal Inspection, Non Tender, Pedal Edema Neurologic/Psychiatric: Alert, Oriented x3 Skin: Normal Color, Warm/Dry Lymphatic: No Adenopathy Results Lab Laboratory Tests 04/16/21 09:25 04/17/21 03:50 04/18/21 03:45 Assessment/Plan Assessment/Plan see free text Critical Care: Ventilator Management Time spent on discussion(mins): 0 Diagnosis/Problems Diagnosis/Problems (1) Hypoxia Status: Acute JAIR MADERA MD Apr 18, 2021 09:25
--- NOTE | 2021-04-18 15:20 | Progress Note - Hospitalist ---
Subjective HPI/CC On Admission Date Seen by Provider: Apr 18, 2021 Time Seen by Provider: 09:30 Marie Pillai is a 60 year old female with PMH HTN, insulin dependent T2DM, migraines, morbid obesity, who presented with shortness of breath. She was recently diagnosed with COVID-19. She has not been on any medications for COVID. She also has a cough. She reports fevers and chills. She has not had much of an appetite. She denies chest pain. Subjective/Events-last exam She is intubated and sedated. Focused Exam Time of Focused Exam: 09:00 Objective Exam Vital Signs Vital Signs Date Time Temp Pulse Resp B/P (MAP) Pulse Ox O2 Delivery O2 Flow Rate FiO2 04/18/21 14:10 66 18 92 60 04/18/21 14:09 Mechanical Ventilator 60.00 04/18/21 14:02 128/63 04/18/21 07:28 37.2 Capillary Refill : Less Than 3 Seconds General Appearance: No Apparent Distress, Obese, Other (Intubated and sedated) Respiratory: No Respiratory Distress, Decreased Breath Sounds, Other (Intubated and mechanically ventilated) Cardiovascular: Regular Rate, Rhythm, No Edema, No Murmur Gastrointestinal: Normal Bowel Sounds, Soft Extremity: Normal Inspection, Non Tender, No Pedal Edema Neurologic/Psychiatric: Other (Sedated) Skin: Normal Color, Warm/Dry Results/Procedures Lab Laboratory Tests 04/18/21 03:45 Patient resulted labs reviewed. Imaging: Reviewed Imaging Report Assessment/Plan Assessment and Plan Assess & Plan/Chief Complaint Acute respiratory failure due to COVID-19 Pneumonia due to COVID-19 Lymphopenia associated with COVID-19 Elevated LFTs Elevated d-dimer Endotracheally intubated COVID positive at outside facility Chest xray with bilateral opacities Procalcitonin normal x2, antibiotics not indicated LFTs mildly elevated, monitor Ddimer mildly elevated, monitor Continue Decadron Remdesivir not indicated due to severity of hypoxia Awaiting convalescent plasma Intubated 04/17 TeleICU consulted, appreciate assistance T2DM Levemir Sliding scale insulin HTN Continue home meds DVT prophylaxis: Lovenox Critical Care Ventilator Management Diagnosis/Problems Diagnosis/Problems (1) Pneumonia due to COVID-19 virus Status: Acute (2) Acute respiratory failure due to COVID-19 Status: Acute (3) Lymphopenia associated with COVID-19 Status: Acute (4) Elevated LFTs Status: Acute (5) Elevated d-dimer Status: Acute (6) Morbid obesity Status: Chronic (7) HTN (hypertension) Status: Chronic (8) T2DM (type 2 diabetes mellitus) Status: Chronic JUANI FUENTES MD Apr 18, 2021 15:20
[2021-04-18] MEDS ORDERED: NS IV 1000 ML 1,000 ML ONE (16:08)
[2021-04-18] MEDS: polyethylene glycoL POWDER 17 GM (MIRALAX) PACK PO SCH (20:58)
[2021-04-19] VITALS (30 sets, daily range): BP systolic 115–161; BP diastolic 53–74
[2021-04-19] MEDS: DexMEDEtomidine 250 ML DRIP 250 ML IV SCH ×3 (00:24→20:09)
[2021-04-19] MEDS: PROPOFOL DRIP (ICU) 100 ML IV SCH ×5 (00:25→13:56)
[2021-04-19] MEDS: inSUlin ASPART (NovoLOG) 1 UNIT/0.01 ML (CHARGE PER UNIT) SC SCH ×5 (00:28→23:47)
[2021-04-19] MEDS: NOREPINEPHRINE 8 MG/250 ML 250 ML IV SCH ×2 (02:53→14:45)
[2021-04-19] MEDS: RT-LEVALBUTEROL (XOPENEX) 1.25 MG/3 ML NEB NON-FORMULARY INH SCH ×6 (02:55→21:52)
[2021-04-19] MEDS: LACTATED RINGERS 1,000 ML IV SCH ×3 (03:56→20:11)
[2021-04-19 04:20] LABS: BASOPHILS % (AUTO) 0 % (0-10); EOSINOPHILS % (AUTO) 0 % (0-10); HEMATOCRIT 40 % (35-52); HEMOGLOBIN 12.9 g/dL (11.5-16.0); LYMPHOCYTES # (AUTO) 0.5 10^3/uL (1.0-4.0); LYMPHOCYTES % (AUTO) 8 % (12-44); MEAN CORPUSCULAR HEMOGLOBIN 28 pg (25-34); MEAN CORPUSCULAR HGB CONC 32 g/dL (32-36); MEAN CORPUSCULAR VOLUME 86 fL (80-99); MEAN PLATELET VOLUME 9.8 fL (9.0-12.2); MONOCYTES # (AUTO) 0.4 10^3/uL (0.0-1.0); MONOCYTES % (AUTO) 6 % (0-12); NEUTROPHILS # (AUTO) 5.6 10^3/uL (1.8-7.8); NEUTROPHILS % (AUTO) 84 % (42-75); PLATELET COUNT 272 10^3/uL (130-400); WHITE BLOOD COUNT 6.6 10^3/uL (4.3-11.0)
[2021-04-19 04:34] LABS: CHLORIDE 106 MMOL/L (98-107); POTASSIUM 4.3 MMOL/L (3.6-5.0); SODIUM 142 MMOL/L (135-145)
[2021-04-19 04:36] LABS: CALCIUM 8.1 MG/DL (8.5-10.1); GLUCOSE 231 MG/DL (70-105); TRIGLYCERIDES 256 MG/DL (<150)
[2021-04-19 04:38] LABS: CARBON DIOXIDE 24 MMOL/L (21-32)
[2021-04-19 04:39] LABS: ABG BASE EXCESS 3.9 MMOL/L (-2.5-2.5); ABG OXYGEN SATURATION 93 % (94-100); ABG PCO2 39 MMHG (35-45); ABG PH 7.46 (7.37-7.43); ABG PO2 71 MMHG (79-93); ABG TCO2 28.8 MMOL/L (21.0-31.0); ALLENS TEST ART LINE; INSPIRED O2 NOT INDICATED; PATIENT TEMP 36.8
[2021-04-19 04:40] LABS: CREATININE SERUM 0.67 MG/DL (0.60-1.30); GFR ESTIMATED > 60
[2021-04-19 04:41] LABS: BUN/CREATININE RATIO 16
[2021-04-19 04:42] LABS: MAGNESIUM 2.3 MG/DL (1.6-2.4)
[2021-04-19] MEDS: KCL 20 MEQ TAB (K-DUR) PO SCH (05:54)
[2021-04-19] MEDS: POTASSIUM CL 10MEQ/50ML IVPB 50 ML IV SCH (05:54)
[2021-04-19] MEDS: MAGNESIUM 1 GM/100 ML IVPB 100 ML IV SCH (05:54)
[2021-04-19] MEDS: PANTOPRAZOLE 20 MG TABLET (PROTONIX) PO SCH (08:00)
[2021-04-19] MEDS: ASCORBIC ACID (VIT C) 500 MG TABLET PO SCH ×2 (08:00→20:10)
[2021-04-19] MEDS: ENOXAPARIN 40 MG/0.4 ML (LOVENOX) SYR SC SCH ×2 (08:00→20:09)
[2021-04-19] MEDS: ASPIRIN E.C. 81 MG (ECOTRIN) TAB PO SCH (08:00)
[2021-04-19] MEDS: guaiFENesin (MUCINEX) 600 MG TAB PO SCH ×2 (08:00→20:10)
[2021-04-19] MEDS: FAMOTIDINE 20 MG (PEPCID) TABLET PO SCH (08:00)
--- NOTE | 2021-04-19 08:24 | Diagnostic Imaging Report ---
INDICATION: Respiratory failure Portable chest 3:55 AM There is an ET tube projecting over the trachea. NG tube enters the stomach. There are bilateral perihilar alveolar infiltrates greater on the right than on the left. IMPRESSION: Bilateral pulmonary infiltrates worse on the right than on the left. The infiltrate in the right lung appears slightly worse compared to previously. Infiltrate in left lung appears slightly improved. Dictated by: Dictated on workstation # [id number] DEL CARMEN
--- NOTE | 2021-04-19 08:56 | Tele-ICU Progress Note ---
Subjective Date Seen by a Provider: Apr 19, 2021 Time Seen by a Provider: 08:47 Subjective/Events-last exam This patient who is diagnosed with Covid pneumonia and acute respiratory failure intubated on mechanical ventilation. Hemodynamically stable.. Apparently she was on 60% FiO2 with a PEEP of 410 earlier today however when the RN turn her the oxygen saturation dropped hence the FiO2 has to be increase it to 100%. Today I made a video visit and discussed with the bedside RN Sandra and obtained further history. Sepsis Event Evaluation Height, Weight, BMI Height: '" Weight: lbs. oz. kg; 47.01 BMI Method: Focused Exam Time of Focused Exam: 09:00 Exam Exam Patient acknowledged, consented, and participated in this virtual visit which was conducted using real time audio/video Vital Signs Date Time Temp Pulse Resp B/P (MAP) Pulse Ox O2 Delivery O2 Flow Rate FiO2 04/19/21 08:40 Mechanical Ventilator 100.00 04/19/21 08:31 56 102/47 04/19/21 08:01 36.6 04/19/21 08:00 66 17 149/70 (96) 96 Mechanical Ventilator 60.00 04/19/21 07:00 67 04/19/21 07:00 73 18 145/67 (93) 95 Mechanical Ventilator 60.00 04/19/21 06:29 65 20 95 60 04/19/21 06:00 66 18 153/72 (99) 95 Mechanical Ventilator 60.00 04/19/21 05:00 65 18 153/71 (98) 95 Mechanical Ventilator 60.00 04/19/21 04:00 68 17 148/71 (96) 96 Mechanical Ventilator 60.00 04/19/21 04:00 92 Mechanical Ventilator 60 04/19/21 03:56 67 04/19/21 03:00 66 16 144/67 (92) 94 Mechanical Ventilator 60.00 04/19/21 02:55 61 16 93 60 04/19/21 02:00 63 24 146/65 (92) 95 Mechanical Ventilator 60.00 04/19/21 01:00 61 21 145/68 (93) 94 Mechanical Ventilator 60.00 04/19/21 01:00 61 04/19/21 00:25 65 04/19/21 00:24 64 04/19/21 00:00 92 Mechanical Ventilator 60 04/19/21 00:00 68 17 153/71 (98) 96 Mechanical Ventilator 60.00 04/18/21 23:00 70 18 151/72 (98) 95 Mechanical Ventilator 60.00 04/18/21 22:00 73 18 145/67 (93) 95 Mechanical Ventilator 60.00 04/18/21 21:08 68 18 95 60 04/18/21 21:00 67 17 146/69 (94) 95 Mechanical Ventilator 60.00 04/18/21 20:00 85 Mechanical Ventilator 50 04/18/21 20:00 68 18 145/69 (94) 95 Mechanical Ventilator 60.00 04/18/21 19:00 67 18 132/65 (87) 96 Mechanical Ventilator 60.00 04/18/21 19:00 70 04/18/21 18:54 65 18 95 60 04/18/21 18:04 64 132/64 04/18/21 18:00 65 17 132/65 (87) 95 Mechanical Ventilator 60.00 04/18/21 17:00 76 14 143/76 (98) 94 Mechanical Ventilator 60.00 04/18/21 16:50 36.2 71 17 137/69 95 Mechanical Ventilator 60 04/18/21 16:48 95 Mechanical Ventilator 50 04/18/21 16:35 36.0 71 17 138/68 95 Mechanical Ventilator 04/18/21 16:00 71 16 136/67 (90) 94 Mechanical Ventilator 60.00 04/18/21 15:00 72 16 134/67 (89) 95 Mechanical Ventilator 60.00 04/18/21 14:10 66 18 92 60 04/18/21 14:09 Mechanical Ventilator 60.00 04/18/21 14:02 63 128/63 04/18/21 14:00 61 15 113/57 (75) 90 Mechanical Ventilator 50.00 04/18/21 13:44 70 126/73 04/18/21 13:00 71 16 128/64 (85) 89 Mechanical Ventilator 50.00 04/18/21 12:50 72 04/18/21 12:00 72 16 129/62 (84) 93 Mechanical Ventilator 50.00 04/18/21 12:00 95 Mechanical Ventilator 50 04/18/21 11:00 70 16 122/59 (80) 91 Mechanical Ventilator 50.00 04/18/21 10:48 51 16 94 45 04/18/21 10:11 68 130/64 04/18/21 10:00 70 16 132/65 (87) 94 Mechanical Ventilator 50.00 04/18/21 09:00 58 16 120/58 (78) 100 Mechanical Ventilator 50.00 I & O 04/19/21 06:59 Intake Total 610 ml Output Total 2045 ml Balance -1435 ml Height & Weight Height: '" Weight: lbs. oz. kg; 47.01 BMI Method: General Appearance: Obese, Other (Intubated and sedated) HEENT: PERRL/EOMI, Pharynx Normal Neck: Normal Inspection, Supple Respiratory: No Respiratory Distress, Decreased Breath Sounds, Other (Intubated and mechanically ventilated) Cardiovascular: Regular Rate, Rhythm, No Edema, No Murmur Capillary Refill: Less Than 3 Seconds Peripheral Pulses: 1+ Dorsalis Pedis (R), 1+ Left Dors-Pedis (L) (see free text), 1+ Radial Pulses (R) Extremity: Normal Inspection, Non Tender, No Pedal Edema Neurologic/Psychiatric: Other (Sedated) Skin: Normal Color, Warm/Dry Lymphatic: No Adenopathy Results Lab Laboratory Tests 04/18/21 03:45 04/19/21 04:03 Meds reviewed Radiology cxr reviewed Assessment/Plan Assessment/Plan 1. Acute Covid pneumonia 2. Acute hypoxic respiratory failure requiring mechanical ventilation 3. Morbid obesity. Recommendations continue mechanical ventilation with a tidal volume of 400, FiO2 of 100% PEEP of 10. Will wean FiO2 as tolerated. 2. Patient today has had dark NG output. We will change the ulcer prophylaxis to Protonix 40 mg IV every 12 hours. 3. We will continue to monitor her CBC and BMP. 4. Continue Decadron. 5. hyper glycemia. goal <180. continue ss Critical Care: Critically Ill Patient Time spent with patient (mins): 40 OSMIN HAYWARD MD Apr 19, 2021 08:56
[2021-04-19] MEDS: PANTOPRAZOLE 40 MG (PROTONIX) VIAL IV SCH ×2 (09:37→20:10)
--- NOTE | 2021-04-19 13:45 | Progress Note - Hospitalist ---
Subjective HPI/CC On Admission Date Seen by Provider: Apr 19, 2021 Time Seen by Provider: 09:45 Marie Pillai is a 60 year old female with PMH HTN, insulin dependent T2DM, migraines, morbid obesity, who presented with shortness of breath. She was recently diagnosed with COVID-19. She has not been on any medications for COVID. She also has a cough. She reports fevers and chills. She has not had much of an appetite. She denies chest pain. Subjective/Events-last exam She remains intubated and sedated. Focused Exam Time of Focused Exam: 09:00 Objective Exam Vital Signs Vital Signs Date Time Temp Pulse Resp B/P (MAP) Pulse Ox O2 Delivery O2 Flow Rate FiO2 04/19/21 13:00 78 20 146/67 (93) 94 Mechanical Ventilator 80.00 04/19/21 11:14 37.0 04/19/21 11:12 90 Capillary Refill : Less Than 3 Seconds General Appearance: No Apparent Distress, Obese, Other (Debated and sedated) Respiratory: Normal Breath Sounds, No Respiratory Distress, Other (Intubated and mechanically ventilated) Cardiovascular: Regular Rate, Rhythm, No Edema, No Murmur Gastrointestinal: Normal Bowel Sounds, Soft Extremity: Normal Inspection, No Pedal Edema Neurologic/Psychiatric: Other (Sedated) Skin: Normal Color, Warm/Dry Results/Procedures Lab Laboratory Tests 04/19/21 04:03 Patient resulted labs reviewed. Imaging: Reviewed Imaging Report Assessment/Plan Assessment and Plan Assess & Plan/Chief Complaint Acute respiratory failure due to COVID-19 Pneumonia due to COVID-19 Lymphopenia associated with COVID-19 Elevated LFTs Elevated d-dimer Endotracheally intubated COVID positive at outside facility Chest xray with bilateral opacities Procalcitonin normal x3, antibiotics not indicated LFTs mildly elevated, monitor Ddimer mildly elevated, monitor Continue Decadron Remdesivir not indicated due to severity of hypoxia s/p 1 unit convalescent plasma Intubated 04/17 TeleICU consulted, appreciate assistance T2DM with hyperglycemia Steroid induced hyperglycemia Increase Levemir Sliding scale insulin HTN Continue home meds DVT prophylaxis: Lovenox GI prophylaxis: Protonix Critical Care Critically Ill Patient Diagnosis/Problems Diagnosis/Problems (1) Pneumonia due to COVID-19 virus Status: Acute (2) Acute respiratory failure due to COVID-19 Status: Acute (3) Lymphopenia associated with COVID-19 Status: Acute (4) Elevated LFTs Status: Acute (5) Elevated d-dimer Status: Acute (6) Morbid obesity Status: Chronic (7) HTN (hypertension) Status: Chronic (8) T2DM (type 2 diabetes mellitus) Status: Chronic JUANI FUENTES MD Apr 19, 2021 13:45
[2021-04-19] MEDS ORDERED: fentaNYL DRIP PRE-MIX 250 ML IV ONE (17:17)
[2021-04-19] MEDS: fentaNYL DRIP PRE-MIX 250 ML IV SCH (17:25)
[2021-04-19] MEDS: LACRI-LUBE OPTHALMIC OINT 3.5 GM TUBE OU SCH (20:10)
[2021-04-19] MEDS: polyethylene glycoL POWDER 17 GM (MIRALAX) PACK PO SCH (20:10)
[2021-04-20] VITALS (30 sets, daily range): BP systolic 104–168; BP diastolic 50–97
[2021-04-20] MEDS: RT-LEVALBUTEROL (XOPENEX) 1.25 MG/3 ML NEB NON-FORMULARY INH SCH ×6 (02:11→22:32)
[2021-04-20 02:40] LABS: BASOPHILS % (AUTO) 0 % (0-10); EOSINOPHILS % (AUTO) 0 % (0-10); HEMATOCRIT 39 % (35-52); HEMOGLOBIN 12.1 g/dL (11.5-16.0); LYMPHOCYTES # (AUTO) 0.3 10^3/uL (1.0-4.0); LYMPHOCYTES % (AUTO) 5 % (12-44); MEAN CORPUSCULAR HEMOGLOBIN 27 pg (25-34); MEAN CORPUSCULAR HGB CONC 31 g/dL (32-36); MEAN CORPUSCULAR VOLUME 87 fL (80-99); MEAN PLATELET VOLUME 9.7 fL (9.0-12.2); MONOCYTES # (AUTO) 0.3 10^3/uL (0.0-1.0); MONOCYTES % (AUTO) 5 % (0-12); NEUTROPHILS # (AUTO) 5.9 10^3/uL (1.8-7.8); NEUTROPHILS % (AUTO) 86 % (42-75); PLATELET COUNT 312 10^3/uL (130-400); WHITE BLOOD COUNT 6.9 10^3/uL (4.3-11.0)
[2021-04-20 02:41] LABS: CHLORIDE 105 MMOL/L (98-107); POTASSIUM 3.9 MMOL/L (3.6-5.0); SODIUM 139 MMOL/L (135-145)
[2021-04-20 02:42] LABS: ABG BASE EXCESS 2.7 MMOL/L (-2.5-2.5); ABG OXYGEN SATURATION 89 % (94-100); ABG PCO2 41 MMHG (35-45); ABG PH 7.43 (7.37-7.43); ABG PO2 60 MMHG (79-93); ABG TCO2 27.8 MMOL/L (21.0-31.0); CALCIUM 7.9 MG/DL (8.5-10.1); GLUCOSE 241 MG/DL (70-105)
[2021-04-20 02:43] LABS: ALLENS TEST ART LINE; INSPIRED O2 100%; PATIENT TEMP 37.6; VENTILATOR YES
[2021-04-20 02:44] LABS: CARBON DIOXIDE 23 MMOL/L (21-32)
[2021-04-20 02:46] LABS: CREATININE SERUM 0.66 MG/DL (0.60-1.30); GFR ESTIMATED > 60
[2021-04-20 02:47] LABS: BUN/CREATININE RATIO 17
[2021-04-20 02:49] LABS: MAGNESIUM 2.1 MG/DL (1.6-2.4)
[2021-04-20] MEDS: NOREPINEPHRINE 8 MG/250 ML 250 ML IV SCH ×2 (03:27→14:39)
[2021-04-20] MEDS: PROPOFOL DRIP (ICU) 100 ML IV SCH ×7 (03:44→22:41)
[2021-04-20] MEDS: inSUlin ASPART (NovoLOG) 1 UNIT/0.01 ML (CHARGE PER UNIT) SC SCH ×4 (05:56→23:50)
[2021-04-20] MEDS: POTASSIUM CL 10MEQ/50ML IVPB 50 ML IV SCH (06:02)
[2021-04-20] MEDS: KCL 20 MEQ TAB (K-DUR) PO SCH (06:02)
[2021-04-20] MEDS: MAGNESIUM 1 GM/100 ML IVPB 100 ML IV SCH (06:02)
[2021-04-20] MEDS: DexMEDEtomidine 250 ML DRIP 250 ML IV SCH ×2 (06:05→17:32)
[2021-04-20] MEDS: PANTOPRAZOLE 40 MG (PROTONIX) VIAL IV SCH ×2 (08:06→20:29)
[2021-04-20] MEDS: LACRI-LUBE OPTHALMIC OINT 3.5 GM TUBE OU SCH ×2 (08:06→20:29)
[2021-04-20] MEDS: ASPIRIN E.C. 81 MG (ECOTRIN) TAB PO SCH (08:06)
[2021-04-20] MEDS: ENOXAPARIN 40 MG/0.4 ML (LOVENOX) SYR SC SCH ×2 (08:06→20:29)
[2021-04-20] MEDS: guaiFENesin (MUCINEX) 600 MG TAB PO SCH ×2 (08:06→20:29)
[2021-04-20] MEDS: ASCORBIC ACID (VIT C) 500 MG TABLET PO SCH ×2 (08:06→20:29)
[2021-04-20] MEDS ORDERED: ACETAMINOPHEN 325 MG TABLET ONE (08:07)
[2021-04-20] MEDS: ACETAMINOPHEN 325 MG TABLET PO PRN ×2 (08:23→13:25)
--- NOTE | 2021-04-20 08:30 | Tele-ICU Progress Note ---
Subjective Date Seen by a Provider: Apr 20, 2021 Time Seen by a Provider: 08:30 Subjective/Events-last exam Rounded virtually with STEVEN Flores: VSS but O2 sats 86% on 100%/+10. Appears comfortable on ventilator via camera. No other problems. Requested proning and PEEP increase to 16. To call back with further developments. Sepsis Event Evaluation Sepsis Stage: Ruled Out Height, Weight, BMI Height: '" Weight: lbs. oz. kg; 47.01 BMI Method: Focused Exam Sepsis Stage: Ruled Out Time of Focused Exam: 09:00 Exam Exam Patient acknowledged, consented, and participated in this virtual visit which was conducted using real time audio/video Vital Signs Date Time Temp Pulse Resp B/P (MAP) Pulse Ox O2 Delivery O2 Flow Rate FiO2 04/20/21 08:23 37.7 04/20/21 08:00 87 24 148/65 (92) 90 Mechanical Ventilator 100.00 04/20/21 08:00 37.2 04/20/21 07:07 80 21 94 100 04/20/21 07:00 67 25 125/59 (81) 92 Mechanical Ventilator 100.00 04/20/21 07:00 79 04/20/21 06:05 80 163/72 04/20/21 06:00 79 20 168/75 (106) 94 Mechanical Ventilator 100.00 04/20/21 05:00 80 21 163/72 (102) 93 Mechanical Ventilator 100.00 04/20/21 04:00 82 21 165/72 (103) 90 Mechanical Ventilator 100.00 04/20/21 04:00 90 Mechanical Ventilator 100 04/20/21 03:45 87 166/69 04/20/21 03:44 87 166/69 04/20/21 03:00 87 22 166/69 (101) 91 Mechanical Ventilator 100.00 04/20/21 02:11 87 23 89 100 04/20/21 02:00 85 23 159/67 (97) 89 Mechanical Ventilator 100.00 04/20/21 01:00 89 23 161/68 (99) 91 Mechanical Ventilator 100.00 04/20/21 01:00 90 04/20/21 00:04 37.0 04/20/21 00:00 90 Mechanical Ventilator 100 04/20/21 00:00 81 23 153/68 (96) 91 Mechanical Ventilator 100.00 04/19/21 23:50 Mechanical Ventilator 100.00 04/19/21 23:00 80 22 154/69 (97) 92 Mechanical Ventilator 90.00 04/19/21 22:00 67 25 125/59 (81) 88 Mechanical Ventilator 90.00 04/19/21 21:53 78 22 92 90 04/19/21 21:00 80 22 158/72 (100) 92 Mechanical Ventilator 90.00 04/19/21 20:09 86 159/71 04/19/21 20:00 95 Mechanical Ventilator 90 04/19/21 20:00 80 23 161/74 (103) 92 Mechanical Ventilator 90.00 04/19/21 20:00 36.0 04/19/21 19:00 82 21 160/72 (101) 91 Mechanical Ventilator 90.00 04/19/21 19:00 86 04/19/21 18:12 79 22 91 90 04/19/21 18:00 80 20 158/72 (100) 91 Mechanical Ventilator 90.00 04/19/21 17:00 81 24 154/69 (97) 91 Mechanical Ventilator 90.00 04/19/21 16:09 37.6 04/19/21 16:00 86 29 153/67 (95) 91 Mechanical Ventilator 90.00 04/19/21 15:49 95 Mechanical Ventilator 90 04/19/21 15:47 87 161/69 04/19/21 15:00 85 24 148/63 (91) 98 Mechanical Ventilator 80.00 04/19/21 14:19 75 26 92 90 04/19/21 14:00 71 24 115/53 (73) 91 Mechanical Ventilator 80.00 04/19/21 13:56 63 123/54 04/19/21 13:56 64 123/57 04/19/21 13:00 78 20 146/67 (93) 94 Mechanical Ventilator 80.00 04/19/21 12:33 77 04/19/21 12:00 75 21 142/64 (90) 94 Mechanical Ventilator 80.00 04/19/21 12:00 Mechanical Ventilator 80.00 04/19/21 11:14 37.0 04/19/21 11:12 93 Mechanical Ventilator 90 04/19/21 11:00 77 25 130/58 (82) 93 Mechanical Ventilator 100.00 04/19/21 10:56 78 132/59 04/19/21 10:32 78 22 93 90 04/19/21 10:00 80 23 144/64 (90) 93 Mechanical Ventilator 100.00 04/19/21 09:00 71 23 121/54 (76) 91 Mechanical Ventilator 100.00 04/19/21 08:58 94 Mechanical Ventilator 60 04/19/21 08:40 Mechanical Ventilator 100.00 04/19/21 08:31 56 102/47 I & O 04/20/21 07:00 Intake Total 1650 ml Output Total 2170 ml Balance -520 ml Height & Weight Height: '" Weight: lbs. oz. kg; 47.01 BMI Method: General Appearance: No Apparent Distress (see free text note), Obese, Other (Debated and sedated) HEENT: PERRL/EOMI, Pharynx Normal Neck: Normal Inspection, Supple Respiratory: Normal Breath Sounds, No Respiratory Distress, Other (Intubated and mechanically ventilated) Cardiovascular: Regular Rate, Rhythm, No Edema, No Murmur Capillary Refill: Less Than 3 Seconds Peripheral Pulses: 1+ Dorsalis Pedis (R), 1+ Left Dors-Pedis (L) (see free text), 1+ Radial Pulses (R) Extremity: Normal Inspection, No Pedal Edema Neurologic/Psychiatric: Other (Sedated) Skin: Normal Color, Warm/Dry Lymphatic: No Adenopathy Results Lab Laboratory Tests 04/19/21 04:03 04/20/21 02:20 Assessment/Plan Assessment/Plan Rounded virtually with RN Sandra: VSS but O2 sats 86% on 100%/+10. Appears comfortable on ventilator via camera. No other problems. Requested proning and PEEP increase to 16. To call back with further developments. Critical Care: Ventilator Management Time spent on discussion(mins): 0 Diagnosis/Problems Diagnosis/Problems (1) Hypoxia Status: Acute (2) Pneumonia due to COVID-19 virus Status: Acute (3) Acute respiratory failure due to COVID-19 Status: Acute JAIR MADERA MD Apr 20, 2021 08:30
--- NOTE | 2021-04-20 08:51 | Diagnostic Imaging Report ---
INDICATION: Pneumonia. Comparison made with prior examination of 04/19/2021. FINDINGS: The heart size is stable. There are bilateral pulmonary infiltrates. No pleural effusion or pneumothorax. Lines and tubes in satisfactory position. IMPRESSION: Bilateral pulmonary infiltrates right greater than left. Some underlying simple venous congestion cannot be excluded. Dictated by: Dictated on workstation # [id number]
[2021-04-20] MEDS ORDERED: FUROSEMIDE 40 MG/4 ML INJ (LASIX) IVP ONE (09:30)
--- NOTE | 2021-04-20 12:45 | Progress Note - Hospitalist ---
Subjective HPI/CC On Admission Date Seen by Provider: Apr 20, 2021 Time Seen by Provider: 09:30 Marie Pillai is a 60 year old female with PMH HTN, insulin dependent T2DM, migraines, morbid obesity, who presented with shortness of breath. She was recently diagnosed with COVID-19. She has not been on any medications for COVID. She also has a cough. She reports fevers and chills. She has not had much of an appetite. She denies chest pain. Subjective/Events-last exam She remains intubated and sedated. She is having increasing oxygen requirements on the ventilator. Focused Exam Time of Focused Exam: 09:00 Objective Exam Vital Signs Vital Signs Date Time Temp Pulse Resp B/P (MAP) Pulse Ox O2 Delivery O2 Flow Rate FiO2 04/20/21 12:22 87 04/20/21 12:00 38.0 16 130/62 (84) 97 Mechanical Ventilator 100.00 04/20/21 11:45 100 Capillary Refill : Less Than 3 Seconds General Appearance: No Apparent Distress, Obese, Other (Debated and sedated) Respiratory: No Respiratory Distress, Decreased Breath Sounds, Other (Debated and mechanically ventilated) Cardiovascular: Regular Rate, Rhythm, No Edema, No Murmur Gastrointestinal: Normal Bowel Sounds, Soft Extremity: Normal Inspection, No Pedal Edema Neurologic/Psychiatric: Other (Sedated) Skin: Normal Color, Warm/Dry Results/Procedures Lab Laboratory Tests 04/20/21 02:20 Patient resulted labs reviewed. Imaging: Reviewed Imaging Report Assessment/Plan Assessment and Plan Assess & Plan/Chief Complaint Acute respiratory distress syndrome due to COVID-19 Pneumonia due to COVID-19 Lymphopenia associated with COVID-19 Elevated LFTs Elevated d-dimer Endotracheally intubated Goals of care discussion Poor prognosis COVID positive at outside facility Chest xray with bilateral opacities Procalcitonin normal x3, antibiotics not indicated LFTs mildly elevated, monitor Ddimer mildly elevated, monitor Continue Decadron Remdesivir not indicated due to severity of hypoxia s/p 1 unit convalescent plasma Intubated 04/17 Increasing FiO2 and PEEP requirements, now at near maximum ventilator support TeleICU consulted, appreciate assistance Discussed goals of care with daughter, poor prognosis, recommended DNR, she will discuss with other family members T2DM with hyperglycemia Steroid induced hyperglycemia Increase Levemir Sliding scale insulin HTN Continue home meds Morbid obesity Clinically significant, no acute management needs DVT prophylaxis: Lovenox GI prophylaxis: Protonix Critical Care Critically Ill Patient Diagnosis/Problems Diagnosis/Problems (1) Acute respiratory distress syndrome (ARDS) due to COVID-19 virus Status: Acute (2) Pneumonia due to COVID-19 virus Status: Acute (3) Acute respiratory failure due to COVID-19 Status: Acute (4) Lymphopenia associated with COVID-19 Status: Acute (5) Elevated LFTs Status: Acute (6) Elevated d-dimer Status: Acute (7) Morbid obesity Status: Chronic (8) HTN (hypertension) Status: Chronic (9) T2DM (type 2 diabetes mellitus) Status: Chronic (10) Goals of care, counseling/discussion Status: Acute (11) Poor prognosis Status: Acute JUANI FUENTES MD Apr 20, 2021 12:45
[2021-04-20] MEDS: fentaNYL DRIP PRE-MIX 250 ML IV SCH ×3 (13:31→22:43)
[2021-04-20] MEDS: FUROSEMIDE 40 MG/4 ML INJ (LASIX) IVP SCH (20:29)
[2021-04-20] MEDS: polyethylene glycoL POWDER 17 GM (MIRALAX) PACK PO SCH (20:29)
[2021-04-20] MEDS: LACTATED RINGERS 1,000 ML IV SCH (22:38)
[2021-04-21] VITALS (30 sets, daily range): BP systolic 111–141; BP diastolic 58–79
[2021-04-21] MEDS: NOREPINEPHRINE 8 MG/250 ML 250 ML IV SCH ×2 (01:00→12:52)
[2021-04-21] MEDS: POTASSIUM CL 10MEQ/50ML IVPB 50 ML IV SCH (01:00)
[2021-04-21] MEDS: KCL 20 MEQ TAB (K-DUR) PO SCH (01:01)
[2021-04-21] MEDS: MAGNESIUM 1 GM/100 ML IVPB 100 ML IV SCH (01:01)
[2021-04-21] MEDS: RT-LEVALBUTEROL (XOPENEX) 1.25 MG/3 ML NEB NON-FORMULARY INH SCH ×6 (02:52→21:56)
[2021-04-21 03:13] LABS: BASOPHILS % (AUTO) 0 % (0-10); EOSINOPHILS % (AUTO) 0 % (0-10); HEMATOCRIT 39 % (35-52); HEMOGLOBIN 12.4 g/dL (11.5-16.0); LYMPHOCYTES # (AUTO) 0.7 10^3/uL (1.0-4.0); LYMPHOCYTES % (AUTO) 11 % (12-44); MEAN CORPUSCULAR HEMOGLOBIN 28 pg (25-34); MEAN CORPUSCULAR HGB CONC 32 g/dL (32-36); MEAN CORPUSCULAR VOLUME 89 fL (80-99); MEAN PLATELET VOLUME 9.3 fL (9.0-12.2); MONOCYTES # (AUTO) 0.5 10^3/uL (0.0-1.0); MONOCYTES % (AUTO) 8 % (0-12); NEUTROPHILS # (AUTO) 5.2 10^3/uL (1.8-7.8); NEUTROPHILS % (AUTO) 78 % (42-75); PLATELET COUNT 374 10^3/uL (130-400); WHITE BLOOD COUNT 6.7 10^3/uL (4.3-11.0)
[2021-04-21 03:14] LABS: ABG BASE EXCESS 5.4 MMOL/L (-2.5-2.5); ABG OXYGEN SATURATION 92 % (94-100); ABG PCO2 49 MMHG (35-45); ABG PO2 73 MMHG (79-93); ABG TCO2 31.4 MMOL/L (21.0-31.0)
[2021-04-21 03:15] LABS: ALLENS TEST ART LINE; INSPIRED O2 45%; PATIENT TEMP 37.3; VENTILATOR YES
[2021-04-21 03:27] LABS: CHLORIDE 103 MMOL/L (98-107); POTASSIUM 4.3 MMOL/L (3.6-5.0); SODIUM 141 MMOL/L (135-145)
[2021-04-21 03:29] LABS: GLUCOSE 210 MG/DL (70-105); TRIGLYCERIDES 320 MG/DL (<150)
[2021-04-21 03:31] LABS: CARBON DIOXIDE 26 MMOL/L (21-32)
[2021-04-21 03:33] LABS: CREATININE SERUM 0.62 MG/DL (0.60-1.30); GFR ESTIMATED > 60
[2021-04-21 03:34] LABS: BUN/CREATININE RATIO 19
[2021-04-21] MEDS: PROPOFOL DRIP (ICU) 100 ML IV SCH ×3 (04:03→22:09)
[2021-04-21] MEDS: inSUlin ASPART (NovoLOG) 1 UNIT/0.01 ML (CHARGE PER UNIT) SC SCH ×3 (04:44→17:41)
[2021-04-21] MEDS: fentaNYL DRIP PRE-MIX 250 ML IV SCH ×4 (04:44→22:08)
--- NOTE | 2021-04-21 07:04 | Occ Therapy Progress Note ---
Therapy Progress Note Pt is currently intubated. OT will monitor pt status and initiate treatment when pt is medically stable and able to actively participate in skilled therapy. MADISYN ROGERS Apr 21, 2021 07:04
--- NOTE | 2021-04-21 07:15 | Diagnostic Imaging Report ---
EXAMINATION: Chest 1 view HISTORY: Respiratory failure. Pneumonia. Intubated. COMPARISON: 04/20/2021. FINDINGS: Stable configuration of the right PICC, endotracheal tube, enteric tube. Continued patchy and consolidative opacities are seen throughout both lungs with continued low lung volumes. No large pleural effusion or pneumothorax. Stable cardiac silhouette. No acute osseous abnormalities. IMPRESSION: 1. Relatively unchanged patchy and consolidative opacities throughout both lungs, likely representing multifocal pneumonia. No pleural effusion. 2. Stable support devices. Dictated by: Dictated on workstation # [id number]
[2021-04-21] MEDS: guaiFENesin (MUCINEX) 600 MG TAB PO SCH ×2 (08:02→19:42)
[2021-04-21] MEDS: PANTOPRAZOLE 40 MG (PROTONIX) VIAL IV SCH ×2 (08:02→20:46)
[2021-04-21] MEDS: LACRI-LUBE OPTHALMIC OINT 3.5 GM TUBE OU SCH ×2 (08:02→20:46)
[2021-04-21] MEDS: ASPIRIN E.C. 81 MG (ECOTRIN) TAB PO SCH (08:02)
[2021-04-21] MEDS: FUROSEMIDE 40 MG/4 ML INJ (LASIX) IVP SCH ×2 (08:02→20:46)
[2021-04-21] MEDS: ENOXAPARIN 40 MG/0.4 ML (LOVENOX) SYR SC SCH ×2 (08:02→20:46)
[2021-04-21] MEDS: ASCORBIC ACID (VIT C) 500 MG TABLET PO SCH ×2 (08:03→19:42)
--- NOTE | 2021-04-21 08:07 | Physical Therapy Progress Note ---
Therapy Progress Note Patient currently sedated and intubated. PT will continue to monitor patient status. JACOB RODRIGUEZ PT Apr 21, 2021 08:07
--- NOTE | 2021-04-21 08:25 | Progress Note - Hospitalist ---
Subjective HPI/CC On Admission Date Seen by Provider: Apr 21, 2021 Time Seen by Provider: 08:20 Marie Pillai is a 60 year old female with PMH HTN, insulin dependent T2DM, migraines, morbid obesity, who presented with shortness of breath. She was recently diagnosed with COVID-19. She has not been on any medications for COVID. She also has a cough. She reports fevers and chills. She has not had much of an appetite. She denies chest pain. Subjective/Events-last exam Pt remains intubated and sedated. No concerns per RN. Focused Exam Time of Focused Exam: 09:00 Objective Exam Vital Signs Vital Signs Date Time Temp Pulse Resp B/P (MAP) Pulse Ox O2 Delivery O2 Flow Rate FiO2 04/21/21 06:37 64 04/21/21 06:34 16 97 45 04/21/21 06:00 36.7 137/74 (95) Mechanical Ventilator 45.00 Capillary Refill : Less Than 3 Seconds General Appearance: Obese, Other (intubated) Respiratory: Decreased Breath Sounds; No Rhonci, No Wheezing; Other (on vent) Cardiovascular: Regular Rate, Rhythm, No Murmur Gastrointestinal: Normal Bowel Sounds, Soft Extremity: Normal Capillary Refill, Pedal Edema Neurologic/Psychiatric: Other (sedated- appears comfortable) Results/Procedures Lab Laboratory Tests 04/21/21 03:00 Patient resulted labs reviewed. Imaging: Reviewed Imaging Report Assessment/Plan Assessment and Plan Assess & Plan/Chief Complaint Acute respiratory distress syndrome due to COVID-19 Pneumonia due to COVID-19 Lymphopenia associated with COVID-19 Elevated LFTs Elevated d-dimer Endotracheally intubated Goals of care discussion Poor prognosis COVID positive at outside facility Chest unchanged today Procalcitonin normal x3, antibiotics not indicated LFTs mildly elevated, monitor Ddimer mildly elevated, monitor Continue Decadron Remdesivir not indicated due to severity of hypoxia and now on vent s/p 1 unit convalescent plasma Intubated 04/17 Increasing FiO2 and PEEP requirements, now at near maximum ventilator support TeleICU consulted, appreciate assistance- discussed with Dr Bravo who will work on decreasing PEEP Dr Almendarez discussed goals of care with daughter, poor prognosis, recommended DNR, family not ready at this point, remains full code T2DM with hyperglycemia Steroid induced hyperglycemia Continue Levemir again tonight Sliding scale insulin HTN Continue home meds Morbid obesity Clinically significant, no acute management needs DVT prophylaxis: Lovenox GI prophylaxis: Protonix Critical Care Critically Ill Patient CARL SAENZ MD Apr 21, 2021 08:25
--- NOTE | 2021-04-21 08:51 | Tele-ICU Progress Note ---
Subjective Date Seen by a Provider: Apr 21, 2021 Time Seen by a Provider: 08:51 Sepsis Event Evaluation Height, Weight, BMI Height: '" Weight: lbs. oz. kg; 47.01 BMI Method: Focused Exam Time of Focused Exam: 09:00 Exam Exam Patient acknowledged, consented, and participated in this virtual visit which was conducted using real time audio/video Vital Signs Date Time Temp Pulse Resp B/P (MAP) Pulse Ox O2 Delivery O2 Flow Rate FiO2 04/21/21 08:34 92 Mechanical Ventilator 45 04/21/21 08:00 36.7 68 14 130/72 (91) 89 Mechanical Ventilator 45.00 04/21/21 07:00 36.7 75 16 124/68 (86) 91 Mechanical Ventilator 45.00 04/21/21 06:37 64 04/21/21 06:34 55 16 97 45 04/21/21 06:00 36.7 68 16 137/74 (95) 97 Mechanical Ventilator 45.00 04/21/21 05:00 36.7 74 16 141/77 (98) 95 Mechanical Ventilator 45.00 04/21/21 04:09 Mechanical Ventilator 45.00 04/21/21 04:03 66 119/61 04/21/21 04:03 66 119/61 04/21/21 04:00 37.2 80 22 127/70 (89) 92 Mechanical Ventilator 50.00 04/21/21 04:00 93 Mechanical Ventilator 45 04/21/21 03:00 37.3 80 16 115/58 (77) 91 Mechanical Ventilator 50.00 04/21/21 02:52 66 16 96 45 04/21/21 02:00 37.4 70 16 133/70 (91) 96 Mechanical Ventilator 50.00 04/21/21 01:00 73 04/21/21 01:00 37.3 75 20 134/70 (91) 96 Mechanical Ventilator 50.00 04/21/21 00:00 96 Mechanical Ventilator 50 04/21/21 00:00 37.4 80 16 136/71 (92) 95 Mechanical Ventilator 50.00 04/20/21 23:51 37.4 Mechanical Ventilator 50.00 04/20/21 23:00 37.5 82 16 125/66 (85) 97 Mechanical Ventilator 60.00 04/20/21 22:48 37.5 Mechanical Ventilator 60.00 04/20/21 22:41 79 128/67 04/20/21 22:39 79 128/67 04/20/21 22:32 79 16 99 75 04/20/21 22:00 37.6 80 17 133/70 (91) 100 Mechanical Ventilator 75.00 04/20/21 21:38 37.6 Mechanical Ventilator 75.00 04/20/21 21:00 70 16 104/50 (68) 94 Mechanical Ventilator 80.00 04/20/21 20:00 81 131/64 (86) 98 Mechanical Ventilator 80.00 04/20/21 20:00 98 Mechanical Ventilator 90 04/20/21 19:53 Mechanical Ventilator 80.00 04/20/21 19:49 37.8 80 16 132/65 (87) 97 Mechanical Ventilator 90.00 04/20/21 19:00 80 16 130/64 (86) 96 Mechanical Ventilator 90.00 04/20/21 19:00 80 04/20/21 18:51 72 16 96 90 04/20/21 18:00 37.9 78 16 132/66 (88) 97 Mechanical Ventilator 90.00 04/20/21 17:33 72 130/64 04/20/21 17:32 72 130/64 04/20/21 17:32 73 131/63 04/20/21 17:00 37.9 81 20 130/65 (86) 96 Mechanical Ventilator 90.00 04/20/21 16:00 38.0 72 16 119/58 (78) 94 Mechanical Ventilator 90.00 04/20/21 16:00 94 Mechanical Ventilator 90 04/20/21 14:54 Mechanical Ventilator 90.00 04/20/21 14:47 86 16 99 100 04/20/21 14:00 38.1 89 33 129/64 (85) 94 Mechanical Ventilator 100.00 04/20/21 13:55 38.1 04/20/21 13:25 38.0 04/20/21 13:00 38.0 89 16 138/67 (90) 96 Mechanical Ventilator 100.00 04/20/21 12:22 87 04/20/21 12:00 38.0 87 16 130/62 (84) 97 Mechanical Ventilator 100.00 04/20/21 11:45 97 Mechanical Ventilator 100 04/20/21 11:20 38.6 04/20/21 11:18 70 23 91 100 04/20/21 11:06 85 133/65 04/20/21 11:06 85 133/65 04/20/21 11:00 81 16 140/97 (111) 95 Mechanical Ventilator 100.00 04/20/21 10:00 74 20 152/68 (96) 94 Mechanical Ventilator 100.00 04/20/21 09:00 81 22 157/69 (98) 94 Mechanical Ventilator 100.00 I & O 04/21/21 07:00 Intake Total 1380 ml Output Total 3900 ml Balance -2520 ml Height & Weight Height: '" Weight: lbs. oz. kg; 47.01 BMI Method: General Appearance: Obese, Other (intubated) HEENT: PERRL/EOMI, Pharynx Normal Neck: Normal Inspection, Supple Respiratory: Decreased Breath Sounds; No Rhonci, No Wheezing; Other (on vent) Cardiovascular: Regular Rate, Rhythm, No Murmur Capillary Refill: Less Than 3 Seconds Peripheral Pulses: 1+ Dorsalis Pedis (R), 1+ Left Dors-Pedis (L) (see free text), 1+ Radial Pulses (R) Extremity: Normal Capillary Refill, Pedal Edema Neurologic/Psychiatric: Other (sedated- appears comfortable) Skin: Normal Color, Warm/Dry Lymphatic: No Adenopathy Results Lab Laboratory Tests 04/20/21 02:20 04/21/21 03:00 Assessment/Plan Assessment/Plan (Tele-ICU Physician , Progress Note ) Available chart/ vitals / labs / Images reviewed Video assessment done using teleICU camera, rest of exam as per RN Discussed with RN Events overnight : none LOW GRADE FEVER hemodynamically stable, no pressors, I/O = neg 2700 Drips: LR 75 As per RN exam : NO WHEEZING , less secretions Consultants: Hospital course: 04/15 - COVID 3 L o2 04/16 - to ICU VAPOTHERM 40 L 100% 04/17 - DESATS ON vt40l 100% - faled BIPAP - INTUBATED 04/19 - NG dark outpupt - protonix bid 04/20- 100%/+10 desats -> PEEP 16, diuresis 2.7 L 04/21 - fio2 40% peep 16 Now in ICU, hemodynamically stable Video assessment done using teleICU camera, rest of exam as per RN Discussed with RN. Consultants: VENT SETTINGS. AC 16 - TV 400 peep 16 fio2 40 % PAP 35 ABG reviewed Sedation: RASS -3 propofol 40 , precedex .08, fentanyl 200 Not candidate for SBTContraindications : Sedation Score /PEEP / CXR A/P Acute resp failure - COVID + suspected bact PNA ? - intubated 04/17 - on peep 16 with fio2 today - will decrease PEEP and decrease sedtion ( starrt with propofol off today as a goal - cont gentle diuresis COVID PNA - dx 7 d ago - steroids IV - remdesivir - ? outside of the Tx window - ddimer LOW 04/16 - proph lovenox RUL infiltrate - suspected bact infection - low PCT - off ABX DM II - ISS Transaminases elevation - probably due to COVID Lines : 04/17 PICC (Central Line Necessity Reviewed) Manjarrez: + OG: Nutrition: to start TF today Analgesia: fentanyl gtt Anxiety/ delirium precedex , propofol ativan VTE Prophylaxis: lovenox Stress Ulcer Prophylaxis: PPI BID Glycemic Control: + Plans in collaboration with bedside consultants and IM MDs. Discussed with RN to reach out if any questions or concerns Discussed with Dr Pedro A total of 37 minutes of critical care time was devoted to this patient today, required to treat and/or prevent further deterioration of critical care condition ( as above HUI NAIK MD Apr 21, 2021 08:51
[2021-04-21] MEDS: LORazepam INJ 2 MG/ML (ATIVAN) VIAL IVP PRN ×2 (11:00→13:52)
[2021-04-21] MEDS: LACTATED RINGERS 1,000 ML IV SCH (12:52)
[2021-04-21] MEDS: DexMEDEtomidine 250 ML DRIP 250 ML IV SCH (15:57)
[2021-04-21] MEDS: polyethylene glycoL POWDER 17 GM (MIRALAX) PACK PO SCH (19:42)
[2021-04-22] VITALS (31 sets, daily range): BP systolic 103–146; BP diastolic 50–83
[2021-04-22] MEDS: inSUlin ASPART (NovoLOG) 1 UNIT/0.01 ML (CHARGE PER UNIT) SC SCH ×5 (00:43→23:50)
[2021-04-22] MEDS: LACTATED RINGERS 1,000 ML IV SCH (00:43)
[2021-04-22] MEDS: RT-LEVALBUTEROL (XOPENEX) 1.25 MG/3 ML NEB NON-FORMULARY INH SCH ×6 (02:07→21:21)
[2021-04-22] MEDS: DexMEDEtomidine 250 ML DRIP 250 ML IV SCH ×3 (02:50→23:56)
[2021-04-22] MEDS: NOREPINEPHRINE 8 MG/250 ML 250 ML IV SCH ×2 (02:50→11:06)
[2021-04-22] MEDS: fentaNYL DRIP PRE-MIX 250 ML IV SCH ×4 (02:51→20:46)
[2021-04-22 03:12] LABS: ABG BASE EXCESS 6.3 MMOL/L (-2.5-2.5); ABG OXYGEN SATURATION 99 % (94-100); ABG PCO2 48 MMHG (35-45); ABG PH 7.43 (7.37-7.43); ABG PO2 138 MMHG (79-93); ABG TCO2 32.2 MMOL/L (21.0-31.0)
[2021-04-22 03:13] LABS: BASOPHILS % (AUTO) 0 % (0-10); EOSINOPHILS % (AUTO) 0 % (0-10); HEMATOCRIT 39 % (35-52); HEMOGLOBIN 12.2 g/dL (11.5-16.0); LYMPHOCYTES # (AUTO) 0.4 10^3/uL (1.0-4.0); LYMPHOCYTES % (AUTO) 5 % (12-44); MEAN CORPUSCULAR HEMOGLOBIN 28 pg (25-34); MEAN CORPUSCULAR HGB CONC 31 g/dL (32-36); MEAN CORPUSCULAR VOLUME 89 fL (80-99); MEAN PLATELET VOLUME 9.6 fL (9.0-12.2); MONOCYTES # (AUTO) 0.6 10^3/uL (0.0-1.0); MONOCYTES % (AUTO) 7 % (0-12); NEUTROPHILS # (AUTO) 6.4 10^3/uL (1.8-7.8); NEUTROPHILS % (AUTO) 85 % (42-75); PLATELET COUNT 419 10^3/uL (130-400); WHITE BLOOD COUNT 7.5 10^3/uL (4.3-11.0)
[2021-04-22 03:14] LABS: ALLENS TEST ART LINE; INSPIRED O2 75%
[2021-04-22 03:15] LABS: PATIENT TEMP 36.9; VENTILATOR YES
[2021-04-22 03:25] LABS: CHLORIDE 102 MMOL/L (98-107); POTASSIUM 3.9 MMOL/L (3.6-5.0); SODIUM 141 MMOL/L (135-145)
[2021-04-22 03:27] LABS: CALCIUM 7.9 MG/DL (8.5-10.1); GLUCOSE 165 MG/DL (70-105)
[2021-04-22 03:28] LABS: CARBON DIOXIDE 27 MMOL/L (21-32)
[2021-04-22 03:31] LABS: CREATININE SERUM 0.55 MG/DL (0.60-1.30); GFR ESTIMATED > 60
[2021-04-22 03:32] LABS: BUN/CREATININE RATIO 25
[2021-04-22] MEDS: MAGNESIUM 1 GM/100 ML IVPB 100 ML IV SCH (04:41)
[2021-04-22] MEDS: KCL 20 MEQ TAB (K-DUR) PO SCH (04:41)
[2021-04-22] MEDS: POTASSIUM CL 10MEQ/50ML IVPB 50 ML IV SCH (04:41)
--- NOTE | 2021-04-22 06:48 | Occ Therapy Progress Note ---
Therapy Progress Note Pt is currently intubated. OT will monitor pt status and initiate treatment when pt is medically stable and able to actively participate in skilled therapy. MADISYN ROGERS Apr 22, 2021 06:48
--- NOTE | 2021-04-22 07:01 | Progress Note - Hospitalist ---
Subjective HPI/CC On Admission Date Seen by Provider: Apr 22, 2021 Time Seen by Provider: 06:56 Marie Pillai is a 60 year old female with PMH HTN, insulin dependent T2DM, migraines, morbid obesity, who presented with shortness of breath. She was recently diagnosed with COVID-19. She has not been on any medications for COVID. She also has a cough. She reports fevers and chills. She has not had much of an appetite. She denies chest pain. Subjective/Events-last exam Pt remains intubated and sedated. Discussed with RN and RT. PEEP down to 14 and no other concerns. Focused Exam Time of Focused Exam: 09:00 Objective Exam Vital Signs Vital Signs Date Time Temp Pulse Resp B/P (MAP) Pulse Ox O2 Delivery O2 Flow Rate FiO2 04/22/21 06:30 Mechanical Ventilator 50.00 04/22/21 06:25 65 16 93 45 04/22/21 06:00 36.4 145/68 (93) Capillary Refill : Less Than 3 Seconds General Appearance: Obese, Other (intubated) HEENT: Other (ETT) Respiratory: Decreased Breath Sounds; No Wheezing; Other (on vent) Cardiovascular: Regular Rate, Rhythm, No Murmur Gastrointestinal: Normal Bowel Sounds, Non Tender, Soft Genital/Rectal: Other (herbert in place) Extremity: Pedal Edema Neurologic/Psychiatric: Other (sedated, appears comfortable) Results/Procedures Lab Laboratory Tests 04/22/21 02:45 Patient resulted labs reviewed. Imaging: Reviewed Imaging Report Assessment/Plan Assessment and Plan Assess & Plan/Chief Complaint Acute respiratory distress syndrome due to COVID-19 Pneumonia due to COVID-19 Lymphopenia associated with COVID-19 Elevated LFTs Elevated d-dimer Endotracheally intubated Goals of care discussion Poor prognosis COVID positive at outside facility Procalcitonin normal x3, antibiotics not indicated LFTs mildly elevated, monitor Ddimer mildly elevated, monitor Continue Decadron Remdesivir not indicated due to severity of hypoxia and now on vent s/p 1 unit convalescent plasma Intubated 04/17 Was able to wean PEEP down to 14 this morning and FiO2 down to 45% TeleICU consulted, appreciate assistance Dr Almendarez discussed goals of care with daughter, poor prognosis, recommended DNR, family not ready at this point, remains full code Consider LTACH if unable to wean later this week negative 935mL yesterday T2DM with hyperglycemia Steroid induced hyperglycemia Imprved with increased Levemir yesterday, fasting 165 Sliding scale insulin HTN Continue home meds Morbid obesity Clinically significant, no acute management needs DVT prophylaxis: Lovenox GI prophylaxis: Protonix Critical Care Critically Ill Patient CARL SAENZ MD Apr 22, 2021 07:01
--- NOTE | 2021-04-22 07:56 | Physical Therapy Progress Note ---
Therapy Progress Note Patient currently sedated and intubated. PT will continue to monitor patient status. JACOB RODRIGUEZ PT Apr 22, 2021 07:56
[2021-04-22] MEDS: LACRI-LUBE OPTHALMIC OINT 3.5 GM TUBE OU SCH ×2 (08:12→20:47)
[2021-04-22] MEDS: ASPIRIN E.C. 81 MG (ECOTRIN) TAB PO SCH (08:12)
[2021-04-22] MEDS: FUROSEMIDE 40 MG/4 ML INJ (LASIX) IVP SCH ×2 (08:12→20:46)
[2021-04-22] MEDS: ASCORBIC ACID (VIT C) 500 MG TABLET PO SCH ×2 (08:12→21:30)
[2021-04-22] MEDS: guaiFENesin (MUCINEX) 600 MG TAB PO SCH ×2 (08:12→21:30)
[2021-04-22] MEDS: ENOXAPARIN 40 MG/0.4 ML (LOVENOX) SYR SC SCH ×2 (08:12→20:47)
[2021-04-22] MEDS: PANTOPRAZOLE 40 MG (PROTONIX) VIAL IV SCH ×2 (08:12→20:46)
--- NOTE | 2021-04-22 09:15 | Diagnostic Imaging Report ---
HISTORY: Intubated. COMPARISON: 04/21/2021 TECHNIQUE: Frontal view of the chest. FINDINGS: The endotracheal tube is 4 cm above the saira. An enteric tube tip projects over the stomach with the sidehole at the distal esophagus. There are low lung volumes. There are airspace opacities bilaterally, most predominantly in the lung bases. The right PICC line tip projects over the right atrium. IMPRESSION: 1. Bilateral airspace opacities with basilar predominance. Aeration appears unchanged since the prior exam. 2. Stable tubes and lines. Dictated by: Dictated on workstation # [id number]
--- NOTE | 2021-04-22 09:42 | Tele-ICU Progress Note ---
Subjective Date Seen by a Provider: Apr 22, 2021 Time Seen by a Provider: 09:42 Sepsis Event Evaluation Height, Weight, BMI Height: '" Weight: lbs. oz. kg; 47.01 BMI Method: Focused Exam Time of Focused Exam: 09:00 Exam Exam Patient acknowledged, consented, and participated in this virtual visit which was conducted using real time audio/video Vital Signs Date Time Temp Pulse Resp B/P (MAP) Pulse Ox O2 Delivery O2 Flow Rate FiO2 04/22/21 09:00 36.5 65 16 134/66 (88) 92 Mechanical Ventilator 50.00 04/22/21 08:00 36.4 66 16 143/66 (91) 94 Mechanical Ventilator 50.00 04/22/21 07:00 36.4 66 16 138/64 (88) 93 Mechanical Ventilator 50.00 04/22/21 06:43 66 04/22/21 06:30 Mechanical Ventilator 50.00 04/22/21 06:25 65 16 93 45 04/22/21 06:00 36.4 63 16 145/68 (93) 95 Mechanical Ventilator 65.00 04/22/21 05:00 36.6 63 16 134/63 (86) 94 Mechanical Ventilator 65.00 04/22/21 04:38 Mechanical Ventilator 65.00 04/22/21 04:05 95 65 04/22/21 04:00 96 Mechanical Ventilator 65 04/22/21 04:00 37.0 71 22 123/58 (79) 95 Mechanical Ventilator 75.00 04/22/21 03:00 36.9 77 16 141/76 (97) 93 Mechanical Ventilator 75.00 04/22/21 02:50 79 141/77 04/22/21 02:07 79 16 93 75 04/22/21 02:00 36.9 78 16 146/82 (103) 93 Mechanical Ventilator 75.00 04/22/21 01:00 79 04/22/21 01:00 36.7 84 16 146/83 (104) 93 Mechanical Ventilator 75.00 04/22/21 00:00 36.7 89 16 141/78 (99) 93 Mechanical Ventilator 75.00 04/22/21 00:00 90 Mechanical Ventilator 75 04/21/21 23:00 36.7 93 16 140/78 (98) 92 Mechanical Ventilator 75.00 04/21/21 22:09 76 127/74 04/21/21 22:08 76 127/74 04/21/21 22:00 36.6 71 16 120/70 (87) 93 Mechanical Ventilator 75.00 04/21/21 21:57 76 16 92 55 04/21/21 21:02 Mechanical Ventilator 75.00 04/21/21 21:00 36.7 87 16 139/78 (98) 90 Mechanical Ventilator 45.00 04/21/21 20:00 94 Mechanical Ventilator 45 04/21/21 20:00 36.6 86 16 140/79 (99) 92 Mechanical Ventilator 45.00 04/21/21 19:00 36.6 86 16 139/79 (99) 92 Mechanical Ventilator 45.00 04/21/21 18:30 86 04/21/21 18:22 87 16 91 55 04/21/21 18:00 36.6 83 16 132/76 (94) 93 Mechanical Ventilator 45.00 04/21/21 17:58 Mechanical Ventilator 45.00 04/21/21 17:00 36.6 90 16 133/76 (95) 93 Mechanical Ventilator 55.00 04/21/21 16:12 Mechanical Ventilator 55.00 04/21/21 16:00 36.7 86 16 123/72 (89) 93 Mechanical Ventilator 65.00 04/21/21 16:00 92 Mechanical Ventilator 55 04/21/21 15:57 86 126/72 04/21/21 15:25 Mechanical Ventilator 65.00 04/21/21 15:00 36.9 84 16 126/71 (89) 94 Mechanical Ventilator 75.00 04/21/21 14:30 76 16 94 55 04/21/21 14:00 37.2 74 16 124/74 (91) 95 Mechanical Ventilator 75.00 04/21/21 13:00 37.2 74 16 123/74 (90) 96 Mechanical Ventilator 75.00 04/21/21 12:14 75 04/21/21 12:00 37.2 73 16 123/73 (90) 95 Mechanical Ventilator 75.00 04/21/21 11:30 92 Mechanical Ventilator 75 04/21/21 11:28 Mechanical Ventilator 75.00 04/21/21 11:00 37.2 62 16 136/74 (94) 95 Mechanical Ventilator 45.00 04/21/21 10:00 36.9 63 16 128/69 (88) 93 Mechanical Ventilator 45.00 04/21/21 09:45 67 16 88 50 I & O 04/22/21 07:00 Intake Total 1960 ml Output Total 2745 ml Balance -785 ml Height & Weight Height: '" Weight: lbs. oz. kg; 47.01 BMI Method: General Appearance: Obese, Other (intubated) HEENT: Other (ETT) Neck: Normal Inspection, Supple Respiratory: Decreased Breath Sounds; No Wheezing; Other (on vent) Cardiovascular: Regular Rate, Rhythm, No Murmur Capillary Refill: Less Than 3 Seconds Peripheral Pulses: 1+ Dorsalis Pedis (R), 1+ Left Dors-Pedis (L) (see free text), 1+ Radial Pulses (R) Extremity: Pedal Edema Neurologic/Psychiatric: Other (sedated, appears comfortable) Skin: Normal Color, Warm/Dry Lymphatic: No Adenopathy Results Lab Laboratory Tests 04/21/21 03:00 04/22/21 02:45 Assessment/Plan Assessment/Plan (Tele-ICU Physician , Progress Note ) Available chart/ vitals / labs / Images reviewed Video assessment done using teleICU camera, rest of exam as per RN Discussed with RN Events overnight : none afebrile hemodynamically stable, no pressors, I/O = neg 1 l Drips: LR 50 As per RN exam : NO WHEEZING , less secretions , + edema Consultants: Hospital course: 04/15 - COVID 3 L o2 04/16 - to ICU VAPOTHERM 40 L 100% 04/17 - DESATS ON vt40l 100% - faled BIPAP - INTUBATED 04/19 - NG dark outpupt - protonix bid 04/20- 100%/+10 desats -> PEEP 16, diuresis 2.7 L 04/21 - fio2 40% peep 16 04/22 - peep14 Now in ICU, hemodynamically stable Video assessment done using teleICU camera, rest of exam as per RN Discussed with RN. Consultants: VENT SETTINGS. AC 16 - TV 400 peep 14 fio2 ( 45 % - to 75 % ).- back to 50% PAP 35 ABG reviewed Sedation: RASS -3 - propofol 20 , precedex .08, fentanyl 250 - ativan prn IV Not candidate for SBTContraindications : Sedation Score /PEEP / CXR A/P Acute resp failure - COVID + suspected bact PNA ? - intubated 04/17 - on peep 14 will try decrease PEEP to 12 and decrease sedtion ( start with propofol off today as a goal - stop proning - cont gentle diuresis COVID PNA - dx 7 d ago - steroids IV - remdesivir - ? outside of the Tx window - ddimer LOW 04/16 - proph lovenox RUL infiltrate - suspected bact infection - low PCT - off ABX DM II - ISS Transaminases elevation - probably due to COVID Add d5W with K ( on diuresis - adjust to lytes start TF today Lines : 04/17 PICC (Central Line Necessity Reviewed) Manjarrez: + OG: Nutrition: to start TF today Analgesia: fentanyl gtt Anxiety/ delirium precedex , propofol ativan VTE Prophylaxis: lovenox Stress Ulcer Prophylaxis: PPI BID Glycemic Control: + Plans in collaboration with bedside consultants and IM MDs. Discussed with RN to reach out if any questions or concerns A total of 37 minutes of critical care time was devoted to this patient today, required to treat and/or prevent further deterioration of critical care condition ( as above HUI NAIK MD Apr 22, 2021 09:42
[2021-04-22] MEDS: LORazepam INJ 2 MG/ML (ATIVAN) VIAL IVP PRN (11:05)
[2021-04-22] MEDS: D5W W/KCL 20 MEQ/L 1,000 ML IV SCH (11:05)
[2021-04-22] MEDS: ACETAMINOPHEN 325 MG TABLET PO PRN (17:13)
[2021-04-22] MEDS: polyethylene glycoL POWDER 17 GM (MIRALAX) PACK PO SCH (21:30)
[2021-04-23] VITALS (30 sets, daily range): BP systolic 86–145; BP diastolic 47–76
[2021-04-23] MEDS: NOREPINEPHRINE 8 MG/250 ML 250 ML IV SCH ×2 (01:14→14:04)
[2021-04-23] MEDS: RT-LEVALBUTEROL (XOPENEX) 1.25 MG/3 ML NEB NON-FORMULARY INH SCH ×6 (02:14→21:46)
[2021-04-23] MEDS: fentaNYL DRIP PRE-MIX 250 ML IV SCH ×4 (02:21→20:48)
[2021-04-23 02:33] LABS: ABG BASE EXCESS 8.9 MMOL/L (-2.5-2.5); ABG OXYGEN SATURATION 92 % (94-100); ABG PCO2 51 MMHG (35-45); ABG PH 7.43 (7.37-7.43); ABG PO2 66 MMHG (79-93); ABG TCO2 34.8 MMOL/L (21.0-31.0); ALLENS TEST ART LINE; BASOPHILS % (AUTO) 0 % (0-10); EOSINOPHILS # (AUTO) 0.1 10^3/uL (0.0-0.3); EOSINOPHILS % (AUTO) 1 % (0-10); HEMATOCRIT 39 % (35-52); HEMOGLOBIN 12.2 g/dL (11.5-16.0); INSPIRED O2 90%; LYMPHOCYTES # (AUTO) 0.6 10^3/uL (1.0-4.0); LYMPHOCYTES % (AUTO) 9 % (12-44); MEAN CORPUSCULAR HEMOGLOBIN 28 pg (25-34); MEAN CORPUSCULAR HGB CONC 32 g/dL (32-36); MEAN CORPUSCULAR VOLUME 89 fL (80-99); MEAN PLATELET VOLUME 9.6 fL (9.0-12.2); MONOCYTES # (AUTO) 0.6 10^3/uL (0.0-1.0); MONOCYTES % (AUTO) 9 % (0-12); NEUTROPHILS # (AUTO) 5.3 10^3/uL (1.8-7.8); NEUTROPHILS % (AUTO) 79 % (42-75); PATIENT TEMP 37.8; PLATELET COUNT 434 10^3/uL (130-400); VENTILATOR YES; WHITE BLOOD COUNT 6.7 10^3/uL (4.3-11.0)
[2021-04-23 02:38] LABS: ALBUMIN 2.8 GM/DL (3.2-4.5); CHLORIDE 98 MMOL/L (98-107); SODIUM 139 MMOL/L (135-145)
[2021-04-23 02:40] LABS: CALCIUM 7.9 MG/DL (8.5-10.1); GLUCOSE 173 MG/DL (70-105)
[2021-04-23 02:41] LABS: CARBON DIOXIDE 30 MMOL/L (21-32)
[2021-04-23 02:44] LABS: CREATININE SERUM 0.59 MG/DL (0.60-1.30); GFR ESTIMATED > 60
[2021-04-23 02:45] LABS: BUN/CREATININE RATIO 24
[2021-04-23 02:46] LABS: MAGNESIUM 1.9 MG/DL (1.6-2.4)
[2021-04-23] MEDS: MAGNESIUM 1 GM/100 ML IVPB 100 ML IV SCH (02:57)
[2021-04-23] MEDS: KCL 20 MEQ TAB (K-DUR) PO SCH (02:57)
[2021-04-23] MEDS: POTASSIUM CL 10MEQ/50ML IVPB 50 ML IV SCH (02:57)
[2021-04-23] MEDS: D5W W/KCL 20 MEQ/L 1,000 ML IV SCH (05:45)
[2021-04-23] MEDS: inSUlin ASPART (NovoLOG) 1 UNIT/0.01 ML (CHARGE PER UNIT) SC SCH ×3 (06:05→17:15)
--- NOTE | 2021-04-23 06:49 | Occ Therapy Progress Note ---
Therapy Progress Note Pt is currently intubated. OT will monitor pt status and initiate treatment when pt is medically stable and able to actively participate in skilled therapy. MADISYN ROGERS Apr 23, 2021 06:49
--- NOTE | 2021-04-23 08:09 | Diagnostic Imaging Report ---
INDICATION: Intubated, mechanical ventilation.. TECHNIQUE: Single view chest 3:01 AM. CORRELATION STUDY: 04/22/2021 FINDINGS: Endotracheal tube tip over the trachea below the clavicles. Gastric tube tip in the proximal body of stomach. Side-port likely just proximal to the GE junction. Right upper extremity central line tip not well visualized but appears to be over the SVC. Heart size and mediastinum are stable. Vasculature appears increased. Bilateral airspace pulmonary opacities are again demonstrated. Most pronounced in the perihilar and basilar region most pronounced at the right lung base. Overall findings stable to slightly increased. Probable bilateral pleural effusions. IMPRESSION: 1. Stable support lines and tubes. 2. Bilateral pulmonary opacities are again demonstrated overall appear perhaps slightly increased. Favor probable multilobe pneumonia. Vasculature however overall appears increased from prior as well. Dictated by: Dictated on workstation # [id number]
[2021-04-23] MEDS ORDERED: ALBUMIN 25% 25 GM/100 ML 50 ML IV ONE (08:15)
[2021-04-23] MEDS ORDERED: FUROSEMIDE 40 MG/4 ML INJ (LASIX) IVP ONE (08:15)
[2021-04-23] MEDS ORDERED: ASPIRIN 325 MG (5 GR) TABLET PO ONE (08:15)
--- NOTE | 2021-04-23 08:16 | Progress Note - Hospitalist ---
Subjective HPI/CC On Admission Date Seen by Provider: Apr 23, 2021 Time Seen by Provider: 08:11 Marie Pillai is a 60 year old female with PMH HTN, insulin dependent T2DM, migraines, morbid obesity, who presented with shortness of breath. She was recently diagnosed with COVID-19. She has not been on any medications for COVID. She also has a cough. She reports fevers and chills. She has not had much of an appetite. She denies chest pain. Subjective/Events-last exam Pt remains intubated and sedated. No concerns per RN. I called and updated daughter. I also discussed potential for [facility] with her as well. Focused Exam Time of Focused Exam: 09:00 Objective Exam Vital Signs Vital Signs Date Time Temp Pulse Resp B/P (MAP) Pulse Ox O2 Delivery O2 Flow Rate FiO2 04/23/21 06:32 68 16 93 90 04/23/21 06:00 37.8 114/55 (74) Mechanical Ventilator 90.00 Capillary Refill : Less Than 3 Seconds General Appearance: Obese, Other (intubated and sedated) Respiratory: Decreased Breath Sounds; No Wheezing; Other (on vent) Cardiovascular: Regular Rate, Rhythm, No Murmur Gastrointestinal: Normal Bowel Sounds, Soft Extremity: Pedal Edema Neurologic/Psychiatric: Other (sedated, appears comfortable) Results/Procedures Lab Laboratory Tests 04/23/21 02:15 Patient resulted labs reviewed. Imaging: Reviewed Imaging Report Assessment/Plan Assessment and Plan Assess & Plan/Chief Complaint Acute respiratory distress syndrome due to COVID-19 Pneumonia due to COVID-19 Lymphopenia associated with COVID-19 Elevated LFTs Elevated d-dimer Endotracheally intubated Goals of care discussion Poor prognosis COVID positive at outside facility Procalcitonin normal x3, antibiotics not indicated LFTs mildly elevated, monitor Ddimer mildly elevated, monitor Continue Decadron Remdesivir not indicated due to severity of hypoxia and now on vent s/p 1 unit convalescent plasma Intubated 04/17 PEEP down to 12, FiO2 90%- discussed potential for [place] transfer with daughter TeleICU consulted, appreciate assistance negative 2L yesterday, repeat Lasix and albumin again Discussed with TeleICU- will resume proning and add Zosyn due to new fever Procal and blood cultures T2DM with hyperglycemia Steroid induced hyperglycemia Improved with increased Levemir yesterday, fasting 173 Sliding scale insulin HTN Continue home meds Morbid obesity Clinically significant, no acute management needs DVT prophylaxis: Lovenox GI prophylaxis: Protonix Critical Care Critically Ill Patient CARL SAENZ MD Apr 23, 2021 08:16
[2021-04-23] MEDS: ENOXAPARIN 40 MG/0.4 ML (LOVENOX) SYR SC SCH ×2 (08:28→20:47)
[2021-04-23] MEDS: PANTOPRAZOLE 40 MG (PROTONIX) VIAL IV SCH ×2 (08:29→20:46)
[2021-04-23] MEDS: guaiFENesin (MUCINEX) 600 MG TAB PO SCH ×2 (08:29→21:09)
[2021-04-23] MEDS: ASCORBIC ACID (VIT C) 500 MG TABLET PO SCH ×2 (08:29→21:09)
[2021-04-23] MEDS: FUROSEMIDE 40 MG/4 ML INJ (LASIX) IVP SCH ×2 (08:29→20:47)
[2021-04-23] MEDS: LACRI-LUBE OPTHALMIC OINT 3.5 GM TUBE OU SCH ×2 (08:30→20:47)
[2021-04-23] MEDS ORDERED: PIPERACILLIN/TAZO 4.5 GM/NS 100 ML IV NR ×2 (09:00)
[2021-04-23 09:10] LABS: ALBUMIN 2.3 GM/DL (3.2-4.5); BILIRUBIN,DIRECT 0.3 MG/DL (0.0-0.3); BILIRUBIN,INDIRECT 0.2 MG/DL; BILIRUBIN,TOTAL 0.5 MG/DL (0.1-1.0)
--- NOTE | 2021-04-23 09:36 | Tele-ICU Progress Note ---
Subjective Date Seen by a Provider: Apr 23, 2021 Time Seen by a Provider: 09:36 Sepsis Event Evaluation Height, Weight, BMI Height: '" Weight: lbs. oz. kg; 47.01 BMI Method: Focused Exam Time of Focused Exam: 09:00 Exam Exam Patient acknowledged, consented, and participated in this virtual visit which was conducted using real time audio/video Vital Signs Date Time Temp Pulse Resp B/P (MAP) Pulse Ox O2 Delivery O2 Flow Rate FiO2 04/23/21 09:06 Mechanical Ventilator 60.00 04/23/21 08:50 Mechanical Ventilator 70.00 04/23/21 08:00 37.8 78 16 114/54 (74) 89 Mechanical Ventilator 90.00 04/23/21 07:00 37.8 79 34 129/61 (83) 92 Mechanical Ventilator 90.00 04/23/21 06:45 79 04/23/21 06:32 68 16 93 90 04/23/21 06:00 37.8 64 16 114/55 (74) 93 Mechanical Ventilator 90.00 04/23/21 05:00 37.8 66 17 111/53 (72) 92 Mechanical Ventilator 90.00 04/23/21 04:00 37.8 81 16 134/64 (87) 92 Mechanical Ventilator 90.00 04/23/21 04:00 90 Mechanical Ventilator 90 04/23/21 03:00 37.8 81 16 131/62 (85) 92 Mechanical Ventilator 90.00 04/23/21 02:14 79 16 93 90 04/23/21 02:00 37.8 82 16 140/65 (90) 93 Mechanical Ventilator 90.00 04/23/21 01:00 70 04/23/21 01:00 37.9 70 16 130/61 (84) 91 Mechanical Ventilator 90.00 04/23/21 00:00 37.9 67 17 114/54 (74) 89 Mechanical Ventilator 90.00 04/23/21 00:00 90 Mechanical Ventilator 90 04/22/21 23:56 68 136/63 04/22/21 23:00 37.9 68 16 136/63 (87) 94 Mechanical Ventilator 90.00 04/22/21 22:00 37.9 80 16 138/66 (90) 93 Mechanical Ventilator 90.00 04/22/21 21:21 64 16 93 90 04/22/21 21:00 38.0 62 16 138/65 (89) 94 Mechanical Ventilator 90.00 04/22/21 20:00 90 Mechanical Ventilator 90 04/22/21 20:00 Mechanical Ventilator 90.00 04/22/21 20:00 37.9 64 16 140/65 (90) 96 Mechanical Ventilator 50.00 04/22/21 19:00 37.8 64 16 135/64 (87) 96 Mechanical Ventilator 50.00 04/22/21 19:00 64 04/22/21 18:18 60 16 96 90 04/22/21 18:00 37.7 63 16 140/68 (92) 95 Mechanical Ventilator 50.00 04/22/21 17:00 37.5 67 16 127/62 (83) 95 Mechanical Ventilator 50.00 04/22/21 16:00 37.3 66 16 103/50 (67) 89 Mechanical Ventilator 50.00 04/22/21 15:50 63 16 90 90 04/22/21 15:17 90 Mechanical Ventilator 50 04/22/21 15:00 37.1 71 16 134/65 (88) 89 Mechanical Ventilator 50.00 04/22/21 14:06 60 16 93 75 04/22/21 14:00 37.0 74 16 123/59 (80) 92 Mechanical Ventilator 50.00 04/22/21 13:05 117/57 04/22/21 13:00 36.9 72 16 125/57 (79) 95 Mechanical Ventilator 50.00 04/22/21 12:57 81 04/22/21 12:00 36.9 61 16 131/62 (85) 91 Mechanical Ventilator 50.00 04/22/21 11:53 92 Mechanical Ventilator 50 04/22/21 11:00 36.7 62 16 124/61 (82) 91 Mechanical Ventilator 50.00 04/22/21 10:00 36.6 63 16 117/58 (77) 92 Mechanical Ventilator 50.00 04/22/21 09:57 62 16 92 45 I & O 04/23/21 07:00 Intake Total 600 ml Output Total 3030 ml Balance -2430 ml Height & Weight Height: '" Weight: lbs. oz. kg; 47.01 BMI Method: General Appearance: Obese, Other (intubated and sedated) HEENT: Other (ETT) Neck: Normal Inspection, Supple Respiratory: Decreased Breath Sounds; No Wheezing; Other (on vent) Cardiovascular: Regular Rate, Rhythm, No Murmur Capillary Refill: Less Than 3 Seconds Peripheral Pulses: 1+ Dorsalis Pedis (R), 1+ Left Dors-Pedis (L) (see free text), 1+ Radial Pulses (R) Extremity: Pedal Edema Neurologic/Psychiatric: Other (sedated, appears comfortable) Skin: Normal Color, Warm/Dry Lymphatic: No Adenopathy Results Lab Laboratory Tests 04/22/21 02:45 04/23/21 02:15 Assessment/Plan Assessment/Plan (Tele-ICU Physician , Progress Note ) Available chart/ vitals / labs / Images reviewed Video assessment done using teleICU camera, rest of exam as per RN Discussed with RN Events overnight : none FEBRILE hemodynamically stable, no pressors, I/O = neg 2L Drips: As per RN exam : NO WHEEZING , less secretions , + edema Consultants: Hospital course: 04/15 - COVID 3 L o2 04/16 - to ICU VAPOTHERM 40 L 100% 04/17 - DESATS ON vt40l 100% - faled BIPAP - INTUBATED 04/19 - NG dark outpupt - protonix bid 04/20- 100%/+10 desats -> PEEP 16, diuresis 2.7 L 04/21 - fio2 40% peep 16 04/22 - peep14 04/23 - increased FIO2 to 90% - resume proning , peep 16 - able to get down to 60% Video assessment done using teleICU camera, rest of exam as per RN Discussed with RN. Consultants: VENT SETTINGS. AC 16 - TV 400 peep 12 fio2 ( 90 % ).- back to 50% PAP 37 ABG reviewed Sedation: RASS -2 - propofol OFF 04/23 , precedex .08, fentanyl 250 - ativan prn IV Not candidate for SBTContraindications : Sedation Score /PEEP / CXR A/P Acute resp failure - COVID + suspected bact PNA ? - intubated 04/17 - on peep 12 WORSENING - increase PEEP to 16- able to get down to 60%- PEEP SENSITIVE ! -04/23 RESUME proning ADD ABX , CHECK DDIMER - cont gentle diuresis ( not follow scommands, " can be talked down" - improvement COVID PNA - dx 7 [employer] - steroids IV - remdesivir - ? outside of the Tx window - ddimer LOW 04/16 - proph lovenox - recheck 04/23 RUL infiltrate - suspected bact infection - low PCT - off ABX , , 04/23 - new fever and ? fio2 - ADDed ZOSYN DM II - ISS Transaminases elevation - probably due to COVID - to repeat today Add d5W with K ( on diuresis - adjust to lytes cont TF today Lines : 04/17 PICC (Central Line Necessity Reviewed) Manjarrez: + OG: + Nutrition: to start TF - bolus Analgesia: fentanyl gtt Anxiety/ delirium precedex ,l ativan VTE Prophylaxis: lovenox Stress Ulcer Prophylaxis: PPI BID Glycemic Control: + no skin breakes - as per RN Plans in collaboration with bedside consultants and IM MDs. Discussed with RN to reach out if any questions or concerns discussed with Dr SAENZ A total of 45 minutes of critical care time was devoted to this patient today, required to treat and/or prevent further deterioration of critical care condition ( as above HUI NAIK MD Apr 23, 2021 09:36
[2021-04-23] MEDS: ACETAMINOPHEN 325 MG TABLET PO PRN (10:08)
--- NOTE | 2021-04-23 10:48 | Physical Therapy Progress Note ---
Therapy Progress Note Patient currently sedated and intubated. PT will continue to monitor patient status. JACOB RODRIGUEZ PT Apr 23, 2021 10:48
[2021-04-23] MEDS: fentaNYL INJ 100 MCG/2 ML AMP IVP PRN ×2 (12:45→18:19)
[2021-04-23] MEDS ORDERED: FUROSEMIDE 40 MG/4 ML INJ (LASIX) IVP NR (14:00)
[2021-04-23] MEDS: PIPERACILLIN/TAZOBACTAM (BULK) 4.5 GM in NS (IVPB) 100 ML IV SCH ×2 (15:19→22:15)
[2021-04-23] MEDS: LORazepam INJ 2 MG/ML (ATIVAN) VIAL IVP PRN (18:19)
[2021-04-23] MEDS: DexMEDEtomidine 250 ML DRIP 250 ML IV SCH (20:48)
[2021-04-23] MEDS: polyethylene glycoL POWDER 17 GM (MIRALAX) PACK PO SCH (21:09)
[2021-04-24] VITALS (28 sets, daily range): BP systolic 82–142; BP diastolic 37–72
[2021-04-24] MEDS: inSUlin ASPART (NovoLOG) 1 UNIT/0.01 ML (CHARGE PER UNIT) SC SCH ×5 (00:12→23:54)
[2021-04-24] MEDS: D5W W/KCL 20 MEQ/L 1,000 ML IV SCH ×2 (00:12→20:40)
[2021-04-24] MEDS: NOREPINEPHRINE 8 MG/250 ML 250 ML IV SCH (00:56)
[2021-04-24] MEDS: LORazepam INJ 2 MG/ML (ATIVAN) VIAL IVP PRN ×2 (02:41→14:13)
[2021-04-24] MEDS: fentaNYL DRIP PRE-MIX 250 ML IV SCH ×4 (02:41→20:40)
[2021-04-24] MEDS: RT-LEVALBUTEROL (XOPENEX) 1.25 MG/3 ML NEB NON-FORMULARY INH SCH ×7 (02:50→22:20)
[2021-04-24 02:59] LABS: BASOPHILS % (AUTO) 0 % (0-10); EOSINOPHILS # (AUTO) 0.1 10^3/uL (0.0-0.3); EOSINOPHILS % (AUTO) 1 % (0-10); HEMATOCRIT 38 % (35-52); HEMOGLOBIN 11.8 g/dL (11.5-16.0); LYMPHOCYTES # (AUTO) 0.6 10^3/uL (1.0-4.0); LYMPHOCYTES % (AUTO) 9 % (12-44); MEAN CORPUSCULAR HEMOGLOBIN 27 pg (25-34); MEAN CORPUSCULAR HGB CONC 31 g/dL (32-36); MEAN CORPUSCULAR VOLUME 89 fL (80-99); MEAN PLATELET VOLUME 9.3 fL (9.0-12.2); MONOCYTES # (AUTO) 0.5 10^3/uL (0.0-1.0); MONOCYTES % (AUTO) 7 % (0-12); NEUTROPHILS # (AUTO) 6.1 10^3/uL (1.8-7.8); NEUTROPHILS % (AUTO) 80 % (42-75); PLATELET COUNT 446 10^3/uL (130-400); WHITE BLOOD COUNT 7.6 10^3/uL (4.3-11.0)
[2021-04-24 03:05] LABS: ABG BASE EXCESS 9.7 MMOL/L (-2.5-2.5); ABG OXYGEN SATURATION 91 % (94-100); ABG PCO2 51 MMHG (35-45); ABG PH 7.44 (7.37-7.43); ABG PO2 69 MMHG (79-93); ABG TCO2 35.5 MMOL/L (21.0-31.0)
[2021-04-24 03:06] LABS: ALLENS TEST YES-POS; INSPIRED O2 65%; PATIENT TEMP 37.7; VENTILATOR YES
[2021-04-24 03:11] LABS: CHLORIDE 98 MMOL/L (98-107); SODIUM 140 MMOL/L (135-145)
[2021-04-24 03:13] LABS: GLUCOSE 171 MG/DL (70-105)
[2021-04-24 03:14] LABS: CARBON DIOXIDE 30 MMOL/L (21-32)
[2021-04-24 03:16] LABS: CREATININE SERUM 0.61 MG/DL (0.60-1.30); GFR ESTIMATED > 60
[2021-04-24 03:17] LABS: BUN/CREATININE RATIO 20
[2021-04-24] MEDS: KCL 20 MEQ TAB (K-DUR) PO SCH (04:11)
[2021-04-24] MEDS: MAGNESIUM 1 GM/100 ML IVPB 100 ML IV SCH (04:11)
[2021-04-24] MEDS: POTASSIUM CL 10MEQ/50ML IVPB 50 ML IV SCH (04:11)
[2021-04-24] MEDS: PIPERACILLIN/TAZOBACTAM (BULK) 4.5 GM in NS (IVPB) 100 ML IV SCH ×3 (06:17→21:50)
[2021-04-24] MEDS: DexMEDEtomidine 250 ML DRIP 250 ML IV SCH ×3 (06:23→23:52)
--- NOTE | 2021-04-24 06:49 | Occ Therapy Progress Note ---
Therapy Progress Note Pt is currently intubated. OT will monitor pt status and initiate treatment when pt is medically stable and able to actively participate in skilled therapy. MADISYN ROGERS Apr 24, 2021 06:49
--- NOTE | 2021-04-24 07:44 | Diagnostic Imaging Report ---
INDICATION: Shortness of breath Portable chest 3:16 AM There is an ET tube projecting over the trachea. NG tube projects over the stomach. There are bilateral alveolar infiltrates. Right upper extremity PICC line tip projects over the SVC. There are no effusions or pneumothoraces. IMPRESSION: Scattered bilateral alveolar infiltrates in the lungs. No appreciable change in the pattern or distribution compared to the previous day. Dictated by: Dictated on workstation # [id number]
--- NOTE | 2021-04-24 07:55 | Physical Therapy Progress Note ---
Therapy Progress Note Patient currently sedated and intubated. PT will continue to monitor patient status. JACOB RODRIGUEZ PT Apr 24, 2021 07:55
[2021-04-24] MEDS: ENOXAPARIN 40 MG/0.4 ML (LOVENOX) SYR SC SCH ×2 (08:05→20:42)
[2021-04-24] MEDS: LACRI-LUBE OPTHALMIC OINT 3.5 GM TUBE OU SCH ×2 (08:06→20:43)
[2021-04-24] MEDS: FUROSEMIDE 40 MG/4 ML INJ (LASIX) IVP SCH (08:06)
[2021-04-24] MEDS: ASCORBIC ACID (VIT C) 500 MG TABLET PO SCH ×2 (08:06→21:22)
[2021-04-24] MEDS: guaiFENesin (MUCINEX) 600 MG TAB PO SCH ×2 (08:06→21:22)
[2021-04-24] MEDS: PANTOPRAZOLE 40 MG (PROTONIX) VIAL IV SCH ×2 (08:06→20:42)
--- NOTE | 2021-04-24 08:31 | Progress Note - Hospitalist ---
Subjective HPI/CC On Admission Date Seen by Provider: Apr 24, 2021 Time Seen by Provider: 08:26 Marie Pillai is a 60 year old female with PMH HTN, insulin dependent T2DM, migraines, morbid obesity, who presented with shortness of breath. She was recently diagnosed with COVID-19. She has not been on any medications for COVID. She also has a cough. She reports fevers and chills. She has not had much of an appetite. She denies chest pain. Subjective/Events-last exam Pt remains intuabted and sedated. Does not respond. ROS not possible. RN reports was following commands yesterday and answering questions appropriately. Started proning again yesterday but does take a while to recover after position change. Focused Exam Time of Focused Exam: 09:00 Objective Exam Vital Signs Vital Signs Date Time Temp Pulse Resp B/P (MAP) Pulse Ox O2 Delivery O2 Flow Rate FiO2 04/24/21 06:51 57 16 91 65 04/24/21 06:23 125/59 04/24/21 06:00 37.0 Mechanical Ventilator 65.00 Capillary Refill : Less Than 3 Seconds General Appearance: Chronically ill, Obese, Other (intubated and sedated ) Respiratory: Decreased Breath Sounds; No Rhonci, No Wheezing; Other (on vent) Cardiovascular: Regular Rate, Rhythm, No Murmur Gastrointestinal: Normal Bowel Sounds, Soft Extremity: Normal Capillary Refill, Pedal Edema Neurologic/Psychiatric: Other (sedated, appears comfortbale does not respond) Results/Procedures Lab Laboratory Tests 04/24/21 02:45 Patient resulted labs reviewed. Imaging: Reviewed Imaging Report Assessment/Plan Assessment and Plan Assess & Plan/Chief Complaint Acute respiratory distress syndrome due to COVID-19 Pneumonia due to COVID-19 Lymphopenia associated with COVID-19 Elevated LFTs Elevated d-dimer Endotracheally intubated Goals of care discussion Poor prognosis COVID positive at outside facility Procalcitonin normal x3, antibiotics not indicated LFTs mildly elevated, monitor Ddimer mildly elevated, monitor Continue Decadron x 10 days Remdesivir not indicated due to severity of hypoxia and now on vent s/p 1 unit convalescent plasma Intubated 04/17 PEEP at 16, FiO2 65%- discussed potential for [place] transfer with daughter yesterday TeleICU consulted, appreciate assistance negative ~3.5L yesterday Co2 up to 30 on BMP so will watch closely for contraction alkalosis Discussed with TeleICU- will resume proning and continue Zosyn due to fever Procal remains negative despite fever Await repeat blood cultures T2DM with hyperglycemia Steroid induced hyperglycemia Improved with increased Levemir yesterday, fasting 171 Sliding scale insulin HTN Continue home meds Morbid obesity Clinically significant, no acute management needs DVT prophylaxis: Lovenox GI prophylaxis: Protonix Critical Care Critically Ill Patient CARL SAENZ MD Apr 24, 2021 08:31
[2021-04-24] MEDS ORDERED: acetaZOLAMIDE INJ 500 MG/5 ML (DIAMOX) VIAL IV SCH (09:00)
--- NOTE | 2021-04-24 09:12 | Tele-ICU Progress Note ---
Subjective Date Seen by a Provider: Apr 24, 2021 Time Seen by a Provider: 09:11 Sepsis Event Evaluation Height, Weight, BMI Height: '" Weight: lbs. oz. kg; 47.01 BMI Method: Focused Exam Time of Focused Exam: 09:00 Exam Exam Patient acknowledged, consented, and participated in this virtual visit which was conducted using real time audio/video Vital Signs Date Time Temp Pulse Resp B/P (MAP) Pulse Ox O2 Delivery O2 Flow Rate FiO2 04/24/21 08:00 37.0 58 17 117/55 (75) 95 Mechanical Ventilator 65.00 04/24/21 07:00 37.0 60 16 102/48 (66) 92 Mechanical Ventilator 65.00 04/24/21 06:51 57 16 91 65 04/24/21 06:43 61 04/24/21 06:23 62 125/59 04/24/21 06:00 37.0 62 23 125/59 (81) 98 Mechanical Ventilator 65.00 04/24/21 05:00 37.0 61 15 139/65 (89) 99 Mechanical Ventilator 65.00 04/24/21 04:00 37.4 61 142/64 (90) 99 Mechanical Ventilator 65.00 04/24/21 04:00 94 Mechanical Ventilator 65 04/24/21 03:21 52 17 94 60 04/24/21 03:00 37.7 64 16 93 Mechanical Ventilator 65.00 04/24/21 02:00 37.7 63 16 140/72 (94) 96 Mechanical Ventilator 65.00 04/24/21 01:00 37.7 62 16 140/71 (94) 95 Mechanical Ventilator 65.00 04/24/21 00:43 64 04/24/21 00:00 37.7 66 16 140/70 (93) 96 Mechanical Ventilator 65.00 04/24/21 00:00 94 Mechanical Ventilator 65 04/23/21 23:00 37.7 70 16 136/69 (91) 96 Mechanical Ventilator 65.00 04/23/21 22:15 Mechanical Ventilator 65.00 04/23/21 22:00 37.7 78 16 137/71 (93) 95 Mechanical Ventilator 70.00 04/23/21 21:46 70 16 96 60 04/23/21 21:00 37.7 70 16 145/74 (97) 96 Mechanical Ventilator 70.00 04/23/21 20:48 75 112/57 04/23/21 20:00 94 Mechanical Ventilator 70 04/23/21 20:00 37.8 63 15 138/65 (89) 96 Mechanical Ventilator 70.00 04/23/21 19:00 75 04/23/21 19:00 38.0 73 16 137/68 (91) 95 Mechanical Ventilator 70.00 04/23/21 19:00 Mechanical Ventilator 70.00 04/23/21 18:22 70 16 94 60 04/23/21 18:00 38.2 80 18 145/76 (99) 94 Mechanical Ventilator 70.00 04/23/21 17:00 38.4 73 16 132/67 (88) 96 Mechanical Ventilator 70.00 04/23/21 16:11 94 Mechanical Ventilator 70 04/23/21 16:00 38.5 77 16 128/64 (85) 94 Mechanical Ventilator 70.00 04/23/21 15:30 Mechanical Ventilator 70.00 04/23/21 15:01 73 16 89 60 04/23/21 15:00 38.5 73 16 116/59 (78) 88 Mechanical Ventilator 60.00 04/23/21 14:12 Mechanical Ventilator 60.00 04/23/21 14:00 38.5 68 116/60 (78) 94 Mechanical Ventilator 70.00 04/23/21 13:11 Mechanical Ventilator 70.00 04/23/21 13:00 38.5 66 17 89/47 (61) 89 Mechanical Ventilator 50.00 04/23/21 12:35 67 04/23/21 12:29 Mechanical Ventilator 50.00 04/23/21 12:00 38.4 66 16 114/52 (72) 95 Mechanical Ventilator 60.00 04/23/21 12:00 94 Mechanical Ventilator 60 04/23/21 11:04 38.4 04/23/21 11:00 38.4 79 16 113/53 (73) 94 Mechanical Ventilator 60.00 04/23/21 10:18 71 16 90 90 04/23/21 10:08 38.2 04/23/21 10:00 38.2 74 16 106/54 (71) 93 Mechanical Ventilator 60.00 I & O 04/24/21 06:59 Intake Total 1210 ml Output Total 4475 ml Balance -3265 ml Height & Weight Height: '" Weight: lbs. oz. kg; 47.01 BMI Method: General Appearance: Chronically ill, Obese, Other (intubated and sedated ) HEENT: Other (ETT) Neck: Normal Inspection, Supple Respiratory: Decreased Breath Sounds; No Rhonci, No Wheezing; Other (on vent) Cardiovascular: Regular Rate, Rhythm, No Murmur Capillary Refill: Less Than 3 Seconds Peripheral Pulses: 1+ Dorsalis Pedis (R), 1+ Left Dors-Pedis (L) (see free text), 1+ Radial Pulses (R) Extremity: Normal Capillary Refill, Pedal Edema Neurologic/Psychiatric: Other (sedated, appears comfortbale does not respond) Skin: Normal Color, Warm/Dry Lymphatic: No Adenopathy Results Lab Laboratory Tests 04/23/21 02:15 04/24/21 02:45 Assessment/Plan Assessment/Plan (Tele-ICU Physician , Progress Note ) Available chart/ vitals / labs / Images reviewed Video assessment done using teleICU camera, rest of exam as per RN Discussed with RN Events overnight : FEBRILE. PERSISTENT LOW GRADE FEVER hemodynamically stable, no pressors, I/O = neg 3400 Drips: As per RN exam : NO WHEEZING , less secretions , + edema Consultants: Hospital course: 04/15 - COVID 3 L o2 04/16 - to ICU VAPOTHERM 40 L 100% 04/17 - DESATS ON vt40l 100% - faled BIPAP - INTUBATED 04/19 - NG dark outpupt - protonix bid 04/20- 100%/+10 desats -> PEEP 16, diuresis 2.7 L 04/21 - fio2 40% peep 16 04/22 - peep14 04/23 - increased FIO2 to 90% - added ZOCYN , - DIURESIS 2.7 L 04/24 - 65% peep 16, changed to DIAMOX from lasix Video assessment done using teleICU camera, rest of exam as per RN Discussed with RN. Consultants: VENT SETTINGS. AC 16 - TV 400 peep 16 fio2 ( 90 % ).- back to 50% PAP 37 ABG reviewed Sedation: RASS -0 - DOES follow scommands, ( propofol OFF 04/23 with elev TGL ) , precedex .08, fentanyl 250 - ativan prn IV Not candidate for SBTContraindications : PEEP / CXR A/P Acute resp failure - - intubated 04/17 - - PEEP SENSITIVE ! -04/23 RESUME proning FOR 12 h ( does not tolerate TF in prone position ) tiday on 65 % - peep 16 - KEEP PEEP 16 today - cont gentle diuresis, CHANGE TO DIAMOX WITH MET ALKALOSIS ( on addition to resp acidosis ( DOES follow scommands, COVID PNA - dx [employer] - steroids IV- START TO TAPER - remdesivir - ? outside of the Tx window - ddimer LOW 04/16 -. 04/23 proph lovenox RUL infiltrate - suspected bact infection - low PCT - off ABX , , 04/23 - new fever and ? fio2 - ADDed ZOSYN EMPIRICALLY , cx pending DM II - ISS Transaminases elevation - probably due to COVID - to repeat today Add d5W with K ( on diuresis - adjust to lytes cont TF today Lines : 04/17 PICC (Central Line Necessity Reviewed) Manjarrez: + OG: + Nutrition: TF - bolus WHILE SUPINE Analgesia: fentanyl gtt Anxiety/ delirium precedex ,l ativan VTE Prophylaxis: lovenox Stress Ulcer Prophylaxis: PPI BID Glycemic Control: + no skin breakes - as per RN Plans in collaboration with bedside consultants and IM MDs. Discussed with RN to reach out if any questions or concerns A total of 37 minutes of critical care time was devoted to this patient today, required to treat and/or prevent further deterioration of critical care condition ( as above HUI NAIK MD Apr 24, 2021 09:12
[2021-04-24] MEDS: ACETAZOLAMIDE IV SCH ×4 (13:18→20:42)
[2021-04-24] MEDS: fentaNYL INJ 100 MCG/2 ML AMP IVP PRN (14:13)
[2021-04-24] MEDS: METOCLOPRAMIDE INJ 10 MG/2 ML (REGLAN) IVP SCH (20:42)
[2021-04-24] MEDS: polyethylene glycoL POWDER 17 GM (MIRALAX) PACK PO SCH (21:22)
[2021-04-25] VITALS (30 sets, daily range): BP systolic 81–181; BP diastolic 36–74
[2021-04-25] MEDS: RT-LEVALBUTEROL (XOPENEX) 1.25 MG/3 ML NEB NON-FORMULARY INH SCH ×6 (02:09→21:50)
[2021-04-25] MEDS: LORazepam INJ 2 MG/ML (ATIVAN) VIAL IVP PRN ×2 (02:32→22:18)
[2021-04-25] MEDS: fentaNYL DRIP PRE-MIX 250 ML IV SCH ×4 (02:33→20:40)
[2021-04-25 02:50] LABS: ABG BASE EXCESS 1.8 MMOL/L (-2.5-2.5); ABG OXYGEN SATURATION 98 % (94-100); ABG PCO2 50 MMHG (35-45); ABG PH 7.35 (7.37-7.43); ABG PO2 144 MMHG (79-93); ABG TCO2 28.4 MMOL/L (21.0-31.0)
[2021-04-25 02:55] LABS: ALLENS TEST ART LINE; INSPIRED O2 65%; PATIENT TEMP 37; VENTILATOR YES
[2021-04-25 02:59] LABS: BASOPHILS % (AUTO) 0 % (0-10); EOSINOPHILS % (AUTO) 0 % (0-10); HEMATOCRIT 37 % (35-52); HEMOGLOBIN 11.4 g/dL (11.5-16.0); LYMPHOCYTES # (AUTO) 0.5 10^3/uL (1.0-4.0); LYMPHOCYTES % (AUTO) 5 % (12-44); MEAN CORPUSCULAR HEMOGLOBIN 28 pg (25-34); MEAN CORPUSCULAR HGB CONC 31 g/dL (32-36); MEAN CORPUSCULAR VOLUME 90 fL (80-99); MEAN PLATELET VOLUME 9.6 fL (9.0-12.2); MONOCYTES # (AUTO) 0.7 10^3/uL (0.0-1.0); MONOCYTES % (AUTO) 7 % (0-12); NEUTROPHILS # (AUTO) 8.3 10^3/uL (1.8-7.8); NEUTROPHILS % (AUTO) 84 % (42-75); PLATELET COUNT 406 10^3/uL (130-400); WHITE BLOOD COUNT 9.9 10^3/uL (4.3-11.0)
[2021-04-25 03:00] LABS: CHLORIDE 101 MMOL/L (98-107); POTASSIUM 3.6 MMOL/L (3.6-5.0); SODIUM 136 MMOL/L (135-145)
[2021-04-25 03:01] LABS: CALCIUM 8.2 MG/DL (8.5-10.1)
[2021-04-25 03:02] LABS: GLUCOSE 235 MG/DL (70-105)
[2021-04-25 03:03] LABS: CARBON DIOXIDE 25 MMOL/L (21-32)
[2021-04-25 03:06] LABS: CREATININE SERUM 0.61 MG/DL (0.60-1.30); GFR ESTIMATED > 60
[2021-04-25 03:07] LABS: BUN/CREATININE RATIO 21
[2021-04-25 03:22] LABS: BAND NEUTROPHILS 5 %; EOSINOPHILS % (MANUAL) 1 %; LYMPHOCYTES % (MANUAL) 3 %; MONOCYTES % (MANUAL) 4 %; NEUTROPHILS % (MANUAL) 87 %
[2021-04-25] MEDS: PIPERACILLIN/TAZOBACTAM (BULK) 4.5 GM in NS (IVPB) 100 ML IV SCH ×3 (05:52→22:18)
[2021-04-25] MEDS: inSUlin ASPART (NovoLOG) 1 UNIT/0.01 ML (CHARGE PER UNIT) SC SCH ×4 (05:53→23:34)
[2021-04-25] MEDS: KCL 20 MEQ TAB (K-DUR) PO SCH (06:04)
[2021-04-25] MEDS: MAGNESIUM 1 GM/100 ML IVPB 100 ML IV SCH (06:04)
[2021-04-25] MEDS: POTASSIUM CL 10MEQ/50ML IVPB 50 ML IV SCH (06:04)
--- NOTE | 2021-04-25 06:47 | Occ Therapy Progress Note ---
Therapy Progress Note Pt is currently intubated. OT will monitor pt status and initiate treatment when pt is medically stable and able to actively participate in skilled therapy. MADISYN ROGERS Apr 25, 2021 06:47
--- NOTE | 2021-04-25 08:04 | Physical Therapy Progress Note ---
Therapy Progress Note Patient currently sedated and intubated. PT will continue to monitor patient status and initiate treatment when patient is able to actively participate with skilled therapy. JACOB RODRIGUEZ PT Apr 25, 2021 08:04
[2021-04-25] MEDS: PANTOPRAZOLE 40 MG (PROTONIX) VIAL IV SCH ×2 (08:05→20:43)
[2021-04-25] MEDS: METOCLOPRAMIDE INJ 10 MG/2 ML (REGLAN) IVP SCH ×3 (08:05→20:43)
[2021-04-25] MEDS: ASCORBIC ACID (VIT C) 500 MG TABLET PO SCH ×2 (08:05→20:42)
[2021-04-25] MEDS: ENOXAPARIN 40 MG/0.4 ML (LOVENOX) SYR SC SCH ×2 (08:06→20:43)
[2021-04-25] MEDS: guaiFENesin (MUCINEX) 600 MG TAB PO SCH ×2 (08:06→20:42)
[2021-04-25] MEDS: LACRI-LUBE OPTHALMIC OINT 3.5 GM TUBE OU SCH ×2 (08:06→20:43)
[2021-04-25] MEDS: ACETAZOLAMIDE IV SCH ×2 (08:06)
[2021-04-25] MEDS: DexMEDEtomidine 250 ML DRIP 250 ML IV SCH ×2 (08:38→23:38)
--- NOTE | 2021-04-25 08:47 | Diagnostic Imaging Report ---
INDICATION: Mechanical ventilation, COVID positive.. TECHNIQUE: Single view chest 5:20 AM. CORRELATION STUDY: 04/24/2021 FINDINGS: Endotracheal tube tip is directed over the trachea just below the clavicles. Right upper extremity central line tip over the low SVC. Gastric tube remains in place with tips not well identified. Heart size and mediastinum are stable. Vasculature may be slightly increased. Extensive bilateral pulmonary infiltrates are again demonstrated but overall appear somewhat improved particularly at the right lung base. IMPRESSION: 1. Extensive bilateral pulmonary infiltrates are again demonstrated but overall do appear to be slightly improved from prior. This is most noticeable at the right lung base. Dictated by: Dictated on workstation # [id number]
--- NOTE | 2021-04-25 08:52 | Progress Note - Hospitalist ---
Subjective HPI/CC On Admission Date Seen by Provider: Apr 25, 2021 Time Seen by Provider: 08:46 Marie Pillai is a 60 year old female with PMH HTN, insulin dependent T2DM, migraines, morbid obesity, who presented with shortness of breath. She was recently diagnosed with COVID-19. She has not been on any medications for COVID. She also has a cough. She reports fevers and chills. She has not had much of an appetite. She denies chest pain. Subjective/Events-last exam Pt remains intubated and sedated. No ROS possible. Per RN no new concerns. I called and updated daughter today. They would like to arrange virtual visit. Passed information along to nurse. Focused Exam Time of Focused Exam: 09:00 Objective Exam Vital Signs Vital Signs Date Time Temp Pulse Resp B/P (MAP) Pulse Ox O2 Delivery O2 Flow Rate FiO2 04/25/21 08:38 71 101/48 04/25/21 08:00 36.6 16 95 Mechanical Ventilator 60.00 04/25/21 07:11 65 Capillary Refill : Less Than 3 Seconds General Appearance: Obese, Other (intubated) Respiratory: Decreased Breath Sounds, Other (on vent) Cardiovascular: Regular Rate, Rhythm, No Murmur Gastrointestinal: Normal Bowel Sounds, Non Tender, Soft Rectal: Other (herbert) Extremity: No Calf Tenderness, No Pedal Edema Neurologic/Psychiatric: Alert, Oriented x3 Results/Procedures Lab Laboratory Tests 04/25/21 02:40 Patient resulted labs reviewed. Imaging: Reviewed Imaging Report Assessment/Plan Assessment and Plan Assess & Plan/Chief Complaint Acute respiratory distress syndrome due to COVID-19 Pneumonia due to COVID-19 Lymphopenia associated with COVID-19 Elevated LFTs Elevated d-dimer Endotracheally intubated Goals of care discussion Poor prognosis COVID positive at outside facility Procalcitonin normal x3, antibiotics not indicated LFTs mildly elevated, monitor Ddimer mildly elevated, monitor Continue Decadron x 10 days Remdesivir not indicated due to severity of hypoxia and now on vent s/p 1 unit convalescent plasma Intubated 04/17 PEEP at 16 still, FiO2 60%- will keep here so long as we are able to prone, consider transfer next week though to [facility] TeleICU consulted, appreciate assistance negative ~2.5L yesterday Procal remains negative despite fever, continue Zosyn repeat blood cultures negative T2DM with hyperglycemia Steroid induced hyperglycemia Fasting blood sugar 235, increase to 50 units Levemir Sliding scale insulin HTN Continue home meds Morbid obesity Clinically significant, no acute management needs DVT prophylaxis: Lovenox GI prophylaxis: Protonix Critical Care Critically Ill Patient CARL SAENZ MD Apr 25, 2021 08:52
--- NOTE | 2021-04-25 09:07 | Tele-ICU Progress Note ---
Subjective Date Seen by a Provider: Apr 25, 2021 Time Seen by a Provider: 09:05 Subjective/Events-last exam This patient with a history of morbid obesity, hypertension and migraines apparently tested positive for Covid prior to the admission and now admitted with a complaint of shortness of breath for several duration several days duration. She is found to have a bilateral pneumonia consistent with Covid infection. She required intubation and put on mechanical ventilation. So far she was not able to be weaned off from mechanical ventilation. She has a I&O of -2460 mL negative. Base excess is down to 1.8. She continues to have hyperglycemia which is being treated with the Levemir and sliding scale coverage. Today I made a video visit and discussed with the patient's bedside RN and apparently her blood pressure is fluctuating between systolic 88741 and she is currently on a Precedex 1.0 mcg and fentanyl 225 mcg. I advised the RN to reduce the Precedex to 0.5 mcg/kg/h and see the response. Also I will reduce the acetazolamide to 250 mg IV daily to keep systolic blood pressure over 100 otherwise will hold. Chest x-ray reviewed and showed bilateral extensive infiltrate. Her potassium today is 3.6 and it is being replaced. Review of Systems ros per attending physician Sepsis Event Evaluation Height, Weight, BMI Height: '" Weight: lbs. oz. kg; 47.01 BMI Method: Focused Exam Time of Focused Exam: 09:00 Exam Exam Patient acknowledged, consented, and participated in this virtual visit which was conducted using real time audio/video Vital Signs Date Time Temp Pulse Resp B/P (MAP) Pulse Ox O2 Delivery O2 Flow Rate FiO2 04/25/21 08:38 71 101/48 04/25/21 08:00 36.6 71 16 101/48 (65) 95 Mechanical Ventilator 60.00 04/25/21 08:00 95 Mechanical Ventilator 65 04/25/21 07:17 Mechanical Ventilator 60.00 04/25/21 07:11 49 16 92 65 04/25/21 07:00 72 04/25/21 07:00 36.5 72 16 111/55 (73) 96 Mechanical Ventilator 65.00 04/25/21 06:00 36.4 74 16 113/55 (74) 97 Mechanical Ventilator 65.00 04/25/21 05:00 36.4 74 17 114/57 (76) 100 Mechanical Ventilator 65.00 04/25/21 04:00 36.6 81 13 113/55 (74) 100 Mechanical Ventilator 65.00 04/25/21 04:00 93 Mechanical Ventilator 65 04/25/21 03:00 36.9 69 20 95/48 (64) 95 Mechanical Ventilator 65.00 04/25/21 02:09 71 16 94 65 04/25/21 02:00 37.0 65 16 106/50 (68) 93 Mechanical Ventilator 65.00 04/25/21 01:00 37.1 87 16 126/58 (80) 95 Mechanical Ventilator 65.00 04/25/21 01:00 87 04/25/21 00:00 93 Mechanical Ventilator 65 04/25/21 00:00 37.3 86 16 125/57 (79) 95 Mechanical Ventilator 65.00 04/24/21 23:52 86 123/55 04/24/21 23:00 37.5 95 16 125/55 (78) 96 Mechanical Ventilator 65.00 04/24/21 22:20 86 16 96 65 04/24/21 22:00 37.8 81 16 121/56 (77) 95 Mechanical Ventilator 65.00 04/24/21 21:00 37.8 78 16 130/62 (84) 96 Mechanical Ventilator 65.00 04/24/21 20:00 93 Mechanical Ventilator 65 04/24/21 20:00 37.9 79 16 136/65 (88) 95 Mechanical Ventilator 65.00 04/24/21 19:10 64 04/24/21 19:06 63 16 93 65 04/24/21 19:00 37.9 73 16 130/63 (85) 96 Mechanical Ventilator 65.00 04/24/21 17:00 37.7 77 16 126/61 (82) 95 Mechanical Ventilator 65.00 04/24/21 16:34 94 Mechanical Ventilator 65 04/24/21 16:00 37.7 81 16 126/61 (82) 96 Mechanical Ventilator 65.00 04/24/21 15:00 38.0 79 16 117/55 (75) 98 Mechanical Ventilator 65.00 04/24/21 14:35 60 83/38 04/24/21 14:06 63 16 64 70 04/24/21 14:00 37.9 64 16 104/50 (68) 94 Mechanical Ventilator 65.00 04/24/21 13:00 37.5 74 16 116/56 (76) 90 Mechanical Ventilator 65.00 04/24/21 12:45 71 04/24/21 12:00 37.3 78 16 94/46 (62) 94 Mechanical Ventilator 65.00 04/24/21 11:56 94 Mechanical Ventilator 65 04/24/21 11:00 37.3 68 16 85/40 (55) 95 Mechanical Ventilator 65.00 04/24/21 10:29 63 16 95 65 04/24/21 10:00 37.2 59 16 107/51 (69) 95 Mechanical Ventilator 65.00 I & O 04/25/21 07:00 Intake Total 420 ml Output Total 3150 ml Balance -2730 ml Height & Weight Height: '" Weight: lbs. oz. kg; 47.01 BMI Method: General Appearance: Obese, Other HEENT: Other (ETT) Neck: Normal Inspection, Supple Respiratory: Decreased Breath Sounds, Other Cardiovascular: Regular Rate, Rhythm, No Murmur Capillary Refill: Less Than 3 Seconds Peripheral Pulses: 1+ Dorsalis Pedis (R), 1+ Left Dors-Pedis (L) (see free text), 1+ Radial Pulses (R) Extremity: No Calf Tenderness, No Pedal Edema Neurologic/Psychiatric: Alert, Oriented x3 Skin: Normal Color, Warm/Dry Lymphatic: No Adenopathy Results Lab Laboratory Tests 04/24/21 02:45 04/25/21 02:40 Meds reviewed Radiology cxr reviewed by me. showing valdez. extensive infiltrates. no ptx. Assessment/Plan Assessment/Plan 1. Bilateral extensive Covid19 pneumonia with ARDS. 2. Acute hypoxic respiratory failure on mechanical ventilation and unable to wean from vent. 3. Intermittent hypotension probably due to volume depletion and also due to Precedex. 4. Morbid obesity 5. Hyperglycemia probably due to acute infection and received dexamethasone earlier. Recommendations 1. We will decrease the Precedex to 0.5 mcg/kg/h and see whether her blood p ressure improves 2. Continue fentanyl drip 3. We will continue to wean FiO2 as tolerated however she is not ready for extubation. 4. Continue Levemir insulin and sliding scale coverage with a goal of keeping her blood sugars less than 200 5. Continue DVT prophylaxis with Lovenox 40 mg subcu twice daily 6. IV Protonix 40 mg IV twice daily for ulcer prophylaxis. 7. We will repeat Covid19 PCR as she did not have any testing done during this hospitalization. At the same time do influenza a and B testing. 8. Her overall prognosis is guarded. Critical Care: Ventilator Management Time spent with patient (mins): 40 Diagnosis/Problems Diagnosis/Problems (1) Pneumonia due to COVID-19 virus Status: Acute (2) Acute respiratory distress syndrome (ARDS) due to COVID-19 virus Status: Acute (3) HTN (hypertension) Status: Chronic (4) Morbid obesity Status: Chronic (5) Elevated d-dimer Status: Acute (6) Acute hyperglycemia OSMIN HAYWARD MD Apr 25, 2021 09:07
[2021-04-25 09:59] LABS: ABG BASE EXCESS 0.9 MMOL/L (-2.5-2.5); ABG OXYGEN SATURATION 98 % (94-100); ABG PCO2 52 MMHG (35-45); ABG PO2 134 MMHG (79-93)
[2021-04-25 10:02] LABS: ABG PH 7.32 (7.37-7.43)
[2021-04-25 10:03] LABS: INSPIRED O2 60%; PATIENT TEMP 36.6; VENTILATOR YES
[2021-04-25] MEDS: NOREPINEPHRINE 8 MG/250 ML 250 ML IV SCH ×2 (12:17→16:48)
[2021-04-25] MEDS: D5W W/KCL 20 MEQ/L 1,000 ML IV SCH (14:07)
--- NOTE | 2021-04-25 14:46 | Diagnostic Imaging Report ---
INDICATION: OG tube placement. TIME OF EXAM: 2:37 p.m. COMPARISON: Correlation is made with prior chest earlier same day. FINDINGS: ET tube has tip above the saira. OG tube has the tip passing below the diaphragm. The proximal side-port appears to be at the level of the distal esophagus and this could be advanced. There are some patchy bilateral infiltrates and central congestion. There is no effusion or pneumothorax. IMPRESSION: Stable bilateral infiltrates. There has been placement of an OG tube, as described. Dictated by: Dictated on workstation # [id number]
[2021-04-25] MEDS ORDERED: NOREPINEPHRINE 8 MG/250 ML 250 ML IV ONE (16:38)
[2021-04-25] MEDS: polyethylene glycoL POWDER 17 GM (MIRALAX) PACK PO SCH (20:42)
[2021-04-25] MEDS: ACETAMINOPHEN 325 MG TABLET PO PRN (22:18)
[2021-04-26] VITALS (30 sets, daily range): BP systolic 81–150; BP diastolic 36–65
[2021-04-26 01:47] LABS: ABG BASE EXCESS -1.1 MMOL/L (-2.5-2.5); ABG OXYGEN SATURATION 97 % (94-100); ABG PCO2 43 MMHG (35-45); ABG PH 7.36 (7.37-7.43); ABG PO2 91 MMHG (79-93); ABG TCO2 24.9 MMOL/L (21.0-31.0)
[2021-04-26 01:48] LABS: INSPIRED O2 60%; PATIENT TEMP 37; VENTILATOR YES
[2021-04-26 01:50] LABS: BASOPHILS % (AUTO) 0 % (0-10); EOSINOPHILS # (AUTO) 0.2 10^3/uL (0.0-0.3); EOSINOPHILS % (AUTO) 1 % (0-10); HEMATOCRIT 35 % (35-52); HEMOGLOBIN 10.8 g/dL (11.5-16.0); LYMPHOCYTES # (AUTO) 0.7 10^3/uL (1.0-4.0); LYMPHOCYTES % (AUTO) 5 % (12-44); MEAN CORPUSCULAR HEMOGLOBIN 28 pg (25-34); MEAN CORPUSCULAR HGB CONC 31 g/dL (32-36); MEAN CORPUSCULAR VOLUME 90 fL (80-99); MEAN PLATELET VOLUME 9.6 fL (9.0-12.2); MONOCYTES # (AUTO) 0.7 10^3/uL (0.0-1.0); MONOCYTES % (AUTO) 5 % (0-12); NEUTROPHILS # (AUTO) 11.5 10^3/uL (1.8-7.8); NEUTROPHILS % (AUTO) 86 % (42-75); PLATELET COUNT 344 10^3/uL (130-400); WHITE BLOOD COUNT 13.4 10^3/uL (4.3-11.0)
[2021-04-26 01:58] LABS: CHLORIDE 105 MMOL/L (98-107); SODIUM 138 MMOL/L (135-145)
[2021-04-26 02:00] LABS: GLUCOSE 96 MG/DL (70-105)
[2021-04-26 02:01] LABS: CARBON DIOXIDE 22 MMOL/L (21-32)
[2021-04-26 02:04] LABS: BUN/CREATININE RATIO 19; CREATININE SERUM 0.57 MG/DL (0.60-1.30); GFR ESTIMATED > 60
[2021-04-26 02:06] LABS: MAGNESIUM 1.8 MG/DL (1.6-2.4)
[2021-04-26] MEDS: RT-LEVALBUTEROL (XOPENEX) 1.25 MG/3 ML NEB NON-FORMULARY INH SCH ×6 (02:07→21:08)
[2021-04-26] MEDS: fentaNYL DRIP PRE-MIX 250 ML IV SCH ×3 (02:11→16:08)
[2021-04-26] MEDS: POTASSIUM CL 10MEQ/50ML IVPB 50 ML IV SCH ×4 (02:15→04:41)
[2021-04-26] MEDS: MAGNESIUM 1 GM/100 ML IVPB 100 ML IV SCH (02:15)
[2021-04-26] MEDS: KCL 20 MEQ TAB (K-DUR) PO SCH (02:16)
[2021-04-26] MEDS: inSUlin ASPART (NovoLOG) 1 UNIT/0.01 ML (CHARGE PER UNIT) SC SCH ×4 (05:38→23:09)
[2021-04-26] MEDS: PIPERACILLIN/TAZOBACTAM (BULK) 4.5 GM in NS (IVPB) 100 ML IV SCH ×3 (05:52→23:09)
[2021-04-26] MEDS: ASCORBIC ACID (VIT C) 500 MG TABLET PO SCH ×2 (08:53→20:32)
[2021-04-26] MEDS: PANTOPRAZOLE 40 MG (PROTONIX) VIAL IV SCH ×2 (08:53→20:33)
[2021-04-26] MEDS: guaiFENesin (MUCINEX) 600 MG TAB PO SCH ×2 (08:53→20:32)
[2021-04-26] MEDS: METOCLOPRAMIDE INJ 10 MG/2 ML (REGLAN) IVP SCH ×3 (08:53→20:33)
[2021-04-26] MEDS: ENOXAPARIN 40 MG/0.4 ML (LOVENOX) SYR SC SCH ×2 (08:54→20:32)
[2021-04-26] MEDS: D5W W/KCL 20 MEQ/L 1,000 ML IV SCH (08:54)
--- NOTE | 2021-04-26 08:55 | Diagnostic Imaging Report ---
INDICATION: Covid positive, ventilator support. COMPARISON STUDY: Chest from yesterday. FINDINGS: Frontal view of the chest demonstrates an endotracheal tube, enteric tube and right arm PICC line remaining in place. Bilateral pulmonary infiltrates appear slightly denser. No pleural effusions are evident. IMPRESSION: Intubated chest with worsening bilateral pulmonary infiltrates. Dictated by: Dictated on workstation # [id number]
[2021-04-26] MEDS ORDERED: acetaZOLAMIDE INJECTION 250 MG in SYRINGE-IVPB 1 SYRINGE IV SCH (09:00)
[2021-04-26] MEDS: DexMEDEtomidine 250 ML DRIP 250 ML IV SCH ×2 (09:08→23:39)
--- NOTE | 2021-04-26 09:11 | Tele-ICU Progress Note ---
Subjective Date Seen by a Provider: Apr 26, 2021 Time Seen by a Provider: 08:15 Subjective/Events-last exam Patient remained on mechanical ventilation with PEEP of 12 and FiO2 of 60%. She diuresis to Lasix last night. Her however her blood pressure is somewhat improved. With holding Diamox and diltiazem. Chest x-ray continues to show bilateral extensive infiltrates. Continues to have a low-grade fever on and off. Review of Systems ros per attending physician Sepsis Event Evaluation Height, Weight, BMI Height: '" Weight: lbs. oz. kg; 47.01 BMI Method: Focused Exam Time of Focused Exam: 09:00 Exam Exam Patient acknowledged, consented, and participated in this virtual visit which was conducted using real time audio/video Vital Signs Date Time Temp Pulse Resp B/P (MAP) Pulse Ox O2 Delivery O2 Flow Rate FiO2 04/26/21 09:08 72 103/55 04/26/21 08:00 37.7 77 17 112/57 (75) 95 Mechanical Ventilator 60.00 04/26/21 07:06 66 18 92 60 04/26/21 07:00 59 04/26/21 07:00 37.7 73 17 108/55 (72) 95 Mechanical Ventilator 60.00 04/26/21 06:00 37.7 61 81/50 (60) 93 Mechanical Ventilator 60.00 04/26/21 05:00 38.0 85 16 113/57 (75) 95 Mechanical Ventilator 60.00 04/26/21 04:00 38.4 81 17 105/49 (67) 93 Mechanical Ventilator 60.00 04/26/21 03:01 Mechanical Ventilator 60.00 04/26/21 03:00 95 Mechanical Ventilator 60 04/26/21 03:00 38.8 83 16 110/51 (70) 95 Mechanical Ventilator 70.00 04/26/21 02:07 81 17 96 70 04/26/21 02:00 39.0 80 16 120/55 (76) 96 Mechanical Ventilator 70.00 04/26/21 01:00 85 04/26/21 01:00 39.2 84 16 126/56 (79) 96 Mechanical Ventilator 70.00 04/26/21 00:00 39.3 81 16 122/52 (75) 96 Mechanical Ventilator 70.00 04/25/21 23:38 83 129/57 7/16/21 23:35 39.3 Mechanical Ventilator 70.00 04/25/21 23:30 93 Mechanical Ventilator 80 04/25/21 23:00 39.2 78 14 113/53 (73) 92 Mechanical Ventilator 80.00 04/25/21 22:43 39.1 04/25/21 22:18 38.8 04/25/21 22:00 38.5 91 23 181/74 (109) 93 Mechanical Ventilator 80.00 04/25/21 21:50 85 28 92 80 04/25/21 21:30 Mechanical Ventilator 80.00 04/25/21 21:00 37.9 79 16 133/62 (85) 91 Mechanical Ventilator 60.00 04/25/21 20:00 95 Mechanical Ventilator 60 04/25/21 20:00 37.6 80 24 118/49 (72) 86 Mechanical Ventilator 60.00 04/25/21 19:00 61 04/25/21 19:00 37.3 64 16 122/55 (77) 95 Mechanical Ventilator 60.00 04/25/21 18:24 69 16 93 60 04/25/21 18:00 37.1 69 17 170/69 (102) 95 Mechanical Ventilator 60.00 04/25/21 17:00 36.9 57 16 92/42 (59) 95 Mechanical Ventilator 60.00 04/25/21 16:48 55 84/37 04/25/21 16:00 37.0 55 16 84/37 (53) 97 Mechanical Ventilator 60.00 04/25/21 15:59 95 Mechanical Ventilator 65 04/25/21 15:18 60 16 96 60 04/25/21 15:00 37.1 61 16 92/42 (59) 97 Mechanical Ventilator 60.00 04/25/21 14:00 36.9 63 16 97/45 (62) 96 Mechanical Ventilator 60.00 04/25/21 13:00 63 04/25/21 13:00 36.8 61 16 97/46 (63) 96 Mechanical Ventilator 60.00 04/25/21 12:17 64 100/47 04/25/21 12:00 36.6 60 16 97/45 (62) 96 Mechanical Ventilator 60.00 04/25/21 12:00 95 Mechanical Ventilator 65 04/25/21 11:00 36.5 64 16 100/47 (64) 94 Mechanical Ventilator 60.00 04/25/21 10:00 36.6 74 15 98/47 (64) 95 Mechanical Ventilator 60.00 04/25/21 09:57 63 16 95 60 I & O 04/26/21 07:00 Intake Total 3642.5 ml Output Total 1970 ml Balance 1672.5 ml Height & Weight Height: '" Weight: lbs. oz. kg; 47.01 BMI Method: General Appearance: Obese, Other HEENT: Other (ETT) Neck: Normal Inspection, Supple Respiratory: Decreased Breath Sounds, Other Cardiovascular: Regular Rate, Rhythm, No Murmur Capillary Refill: Less Than 3 Seconds Peripheral Pulses: 1+ Dorsalis Pedis (R), 1+ Left Dors-Pedis (L) (see free text), 1+ Radial Pulses (R) Extremity: No Calf Tenderness, No Pedal Edema Neurologic/Psychiatric: Alert, Oriented x3 Skin: Normal Color, Warm/Dry Lymphatic: No Adenopathy Results Lab Laboratory Tests 04/25/21 02:40 04/26/21 01:25 Meds reviewed Radiology cxr reviewed Assessment/Plan Assessment/Plan 1. Bilateral extensive Covid19 pneumonia with ARDS.No significant improvement 2. Acute hypoxic respiratory failure on mechanical ventilation and unable to wean from vent. 3. Intermittent hypotension probably due to volume depletion, now improved with weaning precedex and holding cardiazem 4. Morbid obesity 5. Hyperglycemia probably due to acute infection and received dexamethasone earlier. Recommendations 1. continue to hold diltiazem and wean precedex as tolerated 2. Continue fentanyl drip 3. We will continue try to wean FiO2 as tolerated however she is not ready for extubation. 4. Continue Levemir insulin and sliding scale coverage with a goal of keeping her blood sugars less than 200 5. Continue DVT prophylaxis with Lovenox 40 mg subcu twice daily 6. IV Protonix 40 mg IV twice daily for ulcer prophylaxis. 7. We will repeat Covid19 PCR as she did not have any testing done during this hospitalization. At the same time do influenza a and B testing. 8. Her overall prognosis is guarded. Critical Care: Critically Ill Patient Time spent with patient (mins): 35 Diagnosis/Problems Diagnosis/Problems (1) Pneumonia due to COVID-19 virus Status: Acute (2) Acute respiratory distress syndrome (ARDS) due to COVID-19 virus Status: Acute (3) HTN (hypertension) Status: Chronic (4) Morbid obesity Status: Chronic (5) Elevated d-dimer Status: Acute (6) Acute hyperglycemia Copy Copies To 1: CARL SAENZ MD, HARI P MD Apr 26, 2021 09:11
[2021-04-26] MEDS: LACRI-LUBE OPTHALMIC OINT 3.5 GM TUBE OU SCH ×2 (09:16→20:33)
--- NOTE | 2021-04-26 09:46 | Progress Note - Hospitalist ---
Subjective HPI/CC On Admission Date Seen by Provider: Apr 26, 2021 Time Seen by Provider: 09:41 Marie Pillai is a 60 year old female with PMH HTN, insulin dependent T2DM, migraines, morbid obesity, who presented with shortness of breath. She was recently diagnosed with COVID-19. She has not been on any medications for COVID. She also has a cough. She reports fevers and chills. She has not had much of an appetite. She denies chest pain. Subjective/Events-last exam Pt remains on vent. No ROS possible. RN at bedside Now off pressors. Focused Exam Time of Focused Exam: 09:00 Objective Exam Vital Signs Vital Signs Date Time Temp Pulse Resp B/P (MAP) Pulse Ox O2 Delivery O2 Flow Rate FiO2 04/26/21 09:08 72 103/55 04/26/21 09:00 37.5 32 96 Mechanical Ventilator 60.00 04/26/21 07:06 60 Capillary Refill : Less Than 3 Seconds General Appearance: Chronically ill, Obese, Other (sedated, on vent) Respiratory: Decreased Breath Sounds, Other (on vent) Cardiovascular: Regular Rate, Rhythm, No Murmur Gastrointestinal: Normal Bowel Sounds, Non Tender, Soft Genital/Rectal: Other (herbert in place) Extremity: Normal Capillary Refill, Pedal Edema Neurologic/Psychiatric: Other (sedated, appears comfortable) Results/Procedures Lab Laboratory Tests 04/26/21 01:25 Patient resulted labs reviewed. Imaging: Reviewed Imaging Report Assessment/Plan Assessment and Plan Assess & Plan/Chief Complaint Acute respiratory distress syndrome due to COVID-19 Pneumonia due to COVID-19 Lymphopenia associated with COVID-19 Elevated LFTs Elevated d-dimer Endotracheally intubated Goals of care discussion Poor prognosis COVID positive at outside facility Procalcitonin normal x3, antibiotics not indicated LFTs mildly elevated, monitor Ddimer mildly elevated, monitor Decadron x 10 days Remdesivir not indicated due to severity of hypoxia and now on vent s/p 1 unit convalescent plasma Intubated 04/17 PEEP down to 12 still, FiO2 60%- will keep here so long as we are able to prone, consider transfer next week though to LTACH if still not proning or fevering TeleICU consulted, appreciate assistance negative ~2.5L yesterday Procal remains negative despite fever, continue Zosyn, fever curve trending down since Tmax of 39.3 yesterday repeat blood cultures negative T2DM with hyperglycemia Steroid induced hyperglycemia Fasting blood sugar 96, with 50 units Levemir- if unable to tolerate feeds will decrease back to 45 units tonight Sliding scale insulin HTN Continue home meds Morbid obesity Clinically significant, no acute management needs DVT prophylaxis: Lovenox GI prophylaxis: Protonix Critical Care Critically Ill Patient CARL SAENZ MD Apr 26, 2021 09:46
[2021-04-26] MEDS: NOREPINEPHRINE 8 MG/250 ML 250 ML IV SCH ×2 (11:52→20:33)
[2021-04-26] MEDS: ACETAMINOPHEN 325 MG TABLET PO PRN ×2 (13:08→20:33)
[2021-04-26] MEDS ORDERED: NS IV 1000 ML 1,000 ML ONE (14:11)
[2021-04-26] MEDS: polyethylene glycoL POWDER 17 GM (MIRALAX) PACK PO SCH (20:32)
[2021-04-27] VITALS (30 sets, daily range): BP systolic 100–150; BP diastolic 48–72
[2021-04-27] MEDS: RT-LEVALBUTEROL (XOPENEX) 1.25 MG/3 ML NEB NON-FORMULARY INH SCH ×6 (02:27→22:07)
[2021-04-27] MEDS: D5W W/KCL 20 MEQ/L 1,000 ML IV SCH ×2 (02:56→20:06)
[2021-04-27] MEDS: fentaNYL DRIP PRE-MIX 250 ML IV SCH ×4 (02:57→20:07)
[2021-04-27 03:16] LABS: ABG OXYGEN SATURATION 95 % (94-100); ABG PCO2 46 MMHG (35-45); ABG PO2 85 MMHG (79-93); ABG TCO2 24.3 MMOL/L (21.0-31.0)
[2021-04-27 03:34] LABS: CHLORIDE 106 MMOL/L (98-107); POTASSIUM 3.8 MMOL/L (3.6-5.0); SODIUM 136 MMOL/L (135-145)
[2021-04-27 03:35] LABS: CALCIUM 8.2 MG/DL (8.5-10.1)
[2021-04-27 03:36] LABS: GLUCOSE 167 MG/DL (70-105); TRIGLYCERIDES 198 MG/DL (<150)
[2021-04-27 03:37] LABS: CARBON DIOXIDE 22 MMOL/L (21-32)
[2021-04-27 03:39] LABS: CREATININE SERUM 0.58 MG/DL (0.60-1.30); GFR ESTIMATED > 60
[2021-04-27 03:40] LABS: BUN/CREATININE RATIO 16
[2021-04-27 03:45] LABS: ABG PH 7.32 (7.37-7.43); ALLENS TEST ART LINE
[2021-04-27 03:46] LABS: INSPIRED O2 70; PATIENT TEMP 38.1; VENTILATOR YES
[2021-04-27 04:14] LABS: BASOPHILS % (AUTO) 0 % (0-10); EOSINOPHILS # (AUTO) 0.2 10^3/uL (0.0-0.3); EOSINOPHILS % (AUTO) 2 % (0-10); HEMATOCRIT 33 % (35-52); HEMOGLOBIN 10.4 g/dL (11.5-16.0); LYMPHOCYTES # (AUTO) 1.1 10^3/uL (1.0-4.0); LYMPHOCYTES % (AUTO) 10 % (12-44); MEAN CORPUSCULAR HEMOGLOBIN 28 pg (25-34); MEAN CORPUSCULAR HGB CONC 31 g/dL (32-36); MEAN CORPUSCULAR VOLUME 89 fL (80-99); MEAN PLATELET VOLUME 10.1 fL (9.0-12.2); MONOCYTES # (AUTO) 0.7 10^3/uL (0.0-1.0); MONOCYTES % (AUTO) 6 % (0-12); NEUTROPHILS # (AUTO) 8.2 10^3/uL (1.8-7.8); NEUTROPHILS % (AUTO) 80 % (42-75); PLATELET COUNT 391 10^3/uL (130-400); WHITE BLOOD COUNT 10.3 10^3/uL (4.3-11.0)
[2021-04-27] MEDS: POTASSIUM CL 10MEQ/50ML IVPB 50 ML IV SCH (05:23)
[2021-04-27] MEDS: KCL 20 MEQ TAB (K-DUR) PO SCH (05:24)
[2021-04-27] MEDS: inSUlin ASPART (NovoLOG) 1 UNIT/0.01 ML (CHARGE PER UNIT) SC SCH ×3 (05:24→18:10)
[2021-04-27] MEDS: MAGNESIUM 1 GM/100 ML IVPB 100 ML IV SCH (05:24)
[2021-04-27] MEDS: PIPERACILLIN/TAZOBACTAM (BULK) 4.5 GM in NS (IVPB) 100 ML IV SCH ×3 (05:48→23:00)
--- NOTE | 2021-04-27 08:34 | Tele-ICU Progress Note ---
Subjective Date Seen by a Provider: Apr 27, 2021 Time Seen by a Provider: 08:29 Subjective/Events-last exam Today I have discussed with the patient's RN as well as the attending physician Dr. Mayo. As we have not made any progress in weaning her and she is being considered to transfer her patient to LTAC. She is going to discuss with the surgical team for a trach and PEG as well as with the family. Patient's blood p ressure is improved today. As her base excess is decreasing I have stopped with the acetazolamide as patient has a early metabolic acidosis. I have requested another Covid19 PCR test. Review of Systems ros per attending physician Sepsis Event Evaluation Height, Weight, BMI Height: '" Weight: lbs. oz. kg; 47.01 BMI Method: Focused Exam Time of Focused Exam: 09:00 Exam Exam Patient acknowledged, consented, and participated in this virtual visit which was conducted using real time audio/video Vital Signs Date Time Temp Pulse Resp B/P (MAP) Pulse Ox O2 Delivery O2 Flow Rate FiO2 04/27/21 08:00 38.1 73 16 137/66 (89) 95 Mechanical Ventilator 60.00 04/27/21 07:00 68 04/27/21 07:00 38.1 65 19 129/61 (83) 92 Mechanical Ventilator 60.00 04/27/21 06:34 63 17 92 60 04/27/21 06:00 37.6 50 18 131/59 (83) 92 Mechanical Ventilator 60.00 04/27/21 05:00 37.6 68 15 131/65 (87) 93 Mechanical Ventilator 60.00 04/27/21 04:41 Mechanical Ventilator 60.00 04/27/21 04:00 96 Mechanical Ventilator 70 04/27/21 04:00 37.8 74 16 127/63 (84) 95 Mechanical Ventilator 70.00 04/27/21 03:00 38.1 75 16 95 Mechanical Ventilator 70.00 04/27/21 02:28 66 17 95 70 04/27/21 02:00 38.1 71 13 100/53 (69) 95 Mechanical Ventilator 70.00 04/27/21 01:00 68 04/27/21 01:00 38.3 67 16 102/53 (69) 94 Mechanical Ventilator 70.00 04/27/21 00:00 38.9 78 16 104/52 (69) 96 Mechanical Ventilator 70.00 04/26/21 23:39 76 107/51 04/26/21 23:05 94 Mechanical Ventilator 70 04/26/21 23:05 Mechanical Ventilator 70.00 04/26/21 23:00 39.0 75 16 111/52 (71) 97 Mechanical Ventilator 80.00 04/26/21 22:00 39.0 75 15 115/54 (74) 94 Mechanical Ventilator 80.00 04/26/21 21:18 38.7 04/26/21 21:08 81 17 95 80 04/26/21 21:00 39.1 90 18 137/59 (85) 95 Mechanical Ventilator 80.00 04/26/21 20:33 167/69 04/26/21 20:33 38.9 04/26/21 20:12 Mechanical Ventilator 80.00 04/26/21 20:00 38.7 84 17 138/65 (89) 90 Mechanical Ventilator 75.00 04/26/21 20:00 90 Mechanical Ventilator 75 04/26/21 19:30 Mechanical Ventilator 75.00 04/26/21 19:00 38.5 79 16 150/62 (91) 92 Mechanical Ventilator 70.00 04/26/21 19:00 76 04/26/21 18:58 79 20 89 70 04/26/21 18:00 38.2 74 133/57 (82) 90 Mechanical Ventilator 65.00 04/26/21 17:00 38.1 75 18 125/52 (76) 92 Mechanical Ventilator 65.00 04/26/21 16:39 91 Mechanical Ventilator 70 04/26/21 16:00 38.1 75 121/54 (76) 92 Mechanical Ventilator 65.00 04/26/21 15:06 71 17 92 70 04/26/21 15:00 38.1 76 17 125/54 (77) 91 Mechanical Ventilator 65.00 04/26/21 14:41 Mechanical Ventilator 65.00 04/26/21 14:18 72 73/36 04/26/21 14:00 38.1 80 17 86/36 (53) 87 Mechanical Ventilator 55.00 04/26/21 13:09 37.9 Mechanical Ventilator 55.00 04/26/21 13:08 37.9 04/26/21 13:00 38.0 87 16 114/54 (74) 93 Mechanical Ventilator 55.00 04/26/21 13:00 77 04/26/21 12:30 92 Mechanical Ventilator 55 04/26/21 12:00 37.9 79 25 117/56 (76) 92 Mechanical Ventilator 55.00 04/26/21 11:00 37.7 73 27 106/52 (70) 94 Mechanical Ventilator 55.00 04/26/21 10:55 76 18 94 55 04/26/21 10:00 37.6 75 28 102/53 (69) 96 Mechanical Ventilator 60.00 04/26/21 09:08 72 103/55 04/26/21 09:00 37.5 75 32 106/59 (75) 96 Mechanical Ventilator 60.00 I & O 04/27/21 07:00 Intake Total 4302.5 ml Output Total 2620 ml Balance 1682.5 ml Height & Weight Height: '" Weight: lbs. oz. kg; 47.01 BMI Method: General Appearance: Obese, Other HEENT: Other (ETT) Neck: Normal Inspection, Supple Respiratory: Decreased Breath Sounds, Other Cardiovascular: Regular Rate, Rhythm, No Murmur Capillary Refill: Less Than 3 Seconds Peripheral Pulses: 1+ Dorsalis Pedis (R), 1+ Left Dors-Pedis (L) (see free text), 1+ Radial Pulses (R) Extremity: No Calf Tenderness, No Pedal Edema Neurologic/Psychiatric: Alert, Oriented x3 Skin: Normal Color, Warm/Dry Lymphatic: No Adenopathy Results Lab Laboratory Tests 04/26/21 01:25 04/27/21 02:55 Meds reviewed Radiology cxr reviewed Assessment/Plan Assessment/Plan 1. Bilateral extensive Covid19 pneumonia with ARDS.No significant improvement 2. Acute hypoxic respiratory failure on mechanical ventilation and unable to wean from vent. 3. Intermittent hypotension probably due to volume depletion, now improved with weaning precedex and holding cardiazem 4. Morbid obesity 5. Hyperglycemia probably due to acute infection and received dexamethasone earlier. Recommendations 1. continue to hold diltiazem and wean precedex as tolerated 2. Continue fentanyl drip 3. We will continue try to wean FiO2 as tolerated however she is not ready for extubation. 4. Continue Levemir insulin and sliding scale coverage with a goal of keeping her blood sugars less than 200 5. Continue DVT prophylaxis with Lovenox 40 mg subcu twice daily 6. IV Protonix 40 mg IV twice daily for ulcer prophylaxis. 7. We will repeat Covid19 PCR as she did not have any testing done during this hospitalization. At the same time do influenza a and B testing. 8. give a dose of Lasix Critical Care: Critically Ill Patient Time spent with patient (mins): 35 Diagnosis/Problems Diagnosis/Problems (1) Pneumonia due to COVID-19 virus Status: Acute (2) Acute respiratory distress syndrome (ARDS) due to COVID-19 virus Status: Acute (3) HTN (hypertension) Status: Chronic (4) Morbid obesity Status: Chronic (5) Elevated d-dimer Status: Acute (6) Acute hyperglycemia OSMIN HAYWARD MD Apr 27, 2021 08:34
[2021-04-27] MEDS: METOCLOPRAMIDE INJ 10 MG/2 ML (REGLAN) IVP SCH ×3 (09:01→20:10)
[2021-04-27] MEDS: PANTOPRAZOLE 40 MG (PROTONIX) VIAL IV SCH ×2 (09:01→20:10)
[2021-04-27] MEDS: ENOXAPARIN 40 MG/0.4 ML (LOVENOX) SYR SC SCH ×2 (09:02→20:10)
[2021-04-27] MEDS: ACETAMINOPHEN 325 MG TABLET PO PRN ×3 (09:02→23:00)
[2021-04-27] MEDS: ASCORBIC ACID (VIT C) 500 MG TABLET PO SCH ×2 (09:02→20:10)
[2021-04-27] MEDS: guaiFENesin (MUCINEX) 600 MG TAB PO SCH ×2 (09:02→20:10)
[2021-04-27] MEDS: LACRI-LUBE OPTHALMIC OINT 3.5 GM TUBE OU SCH ×2 (09:06→20:11)
--- NOTE | 2021-04-27 10:21 | Progress Note - Hospitalist ---
Subjective HPI/CC On Admission Date Seen by Provider: Apr 27, 2021 Time Seen by Provider: 10:17 Marie Pillai is a 60 year old female with PMH HTN, insulin dependent T2DM, migraines, morbid obesity, who presented with shortness of breath. She was recently diagnosed with COVID-19. She has not been on any medications for COVID. She also has a cough. She reports fevers and chills. She has not had much of an appetite. She denies chest pain. Subjective/Events-last exam Pt remains intubated and sedated. No ROS possible. RN reports back on Levophed. Focused Exam Time of Focused Exam: 09:00 Objective Exam Vital Signs Vital Signs Date Time Temp Pulse Resp B/P (MAP) Pulse Ox O2 Delivery O2 Flow Rate FiO2 04/27/21 10:00 38.1 58 13 102/49 (66) 92 Mechanical Ventilator 60.00 04/27/21 06:34 60 Capillary Refill : Less Than 3 Seconds General Appearance: Chronically ill, Obese, Other (sedated/intubated) Respiratory: No Crackles; Decreased Breath Sounds; No Wheezing; Other (on vent) Cardiovascular: Regular Rate, Rhythm, No Murmur Extremity: Pedal Edema Neurologic/Psychiatric: Other (sedated, appears comfortable) Results/Procedures Lab Laboratory Tests 04/27/21 02:55 Patient resulted labs reviewed. Imaging: Reviewed Imaging Report Assessment/Plan Assessment and Plan Assess & Plan/Chief Complaint Acute respiratory distress syndrome due to COVID-19 Pneumonia due to COVID-19 Lymphopenia associated with COVID-19 Elevated LFTs Elevated d-dimer Endotracheally intubated Goals of care discussion Poor prognosis COVID positive at outside facility Procalcitonin normal x3, antibiotics not indicated LFTs messentially normal Ddimer mildly elevated, monitor Decadron x 10 days Remdesivir not indicated due to severity of hypoxia and now on vent s/p 1 unit convalescent plasma Intubated 04/17 PEEP down to 12 still, FiO2 60%- consider LTACH transfer this week if no significant improvement Positive yesterday, will watch and adjust diuretics is trend continues Procal remains negative despite fever, continue Zosyn, fever curve trending down still since Tmax of 39.3 04/26 repeat blood cultures negative T2DM with hyperglycemia Steroid induced hyperglycemia Fasting blood sugar 167 with 50 units Levemir- Sliding scale insulin HTN Hold cardizem Morbid obesity Clinically significant, no acute management needs DVT prophylaxis: Lovenox GI prophylaxis: Protonix Critical Care Critically Ill Patient CARL SAENZ MD Apr 27, 2021 10:21
[2021-04-27] MEDS: DexMEDEtomidine 250 ML DRIP 250 ML IV SCH ×2 (11:05→20:08)
[2021-04-27] MEDS: NOREPINEPHRINE 8 MG/250 ML 250 ML IV SCH ×2 (11:05→21:04)
[2021-04-27] MEDS ORDERED: FUROSEMIDE 40 MG/4 ML INJ (LASIX) IVP NR (11:30)
--- NOTE | 2021-04-27 11:59 | Diagnostic Imaging Report ---
EXAMINATION: Chest 1 view HISTORY: Covid positive. COMPARISON: 04/26/2021. FINDINGS: Stable configuration of the endotracheal tube, enteric tube, and right PICC. Diffuse patchy and groundglass opacities are seen throughout the lungs, relatively unchanged compared to the prior exam. No large pleural effusion or pneumothorax. Stable cardiac silhouette. IMPRESSION: 1. Stable diffuse opacities throughout the lungs. 2. Stable support devices. Dictated by: Dictated on workstation # [id number]
[2021-04-27] MEDS: polyethylene glycoL POWDER 17 GM (MIRALAX) PACK PO SCH (20:10)
[2021-04-28] VITALS (25 sets, daily range): BP systolic 103–178; BP diastolic 54–79
[2021-04-28] MEDS: inSUlin ASPART (NovoLOG) 1 UNIT/0.01 ML (CHARGE PER UNIT) SC SCH ×4 (00:32→18:00)
[2021-04-28] MEDS: LORazepam INJ 2 MG/ML (ATIVAN) VIAL IVP PRN (00:51)
[2021-04-28] MEDS: RT-LEVALBUTEROL (XOPENEX) 1.25 MG/3 ML NEB NON-FORMULARY INH SCH ×6 (01:58→22:02)
[2021-04-28] MEDS: fentaNYL DRIP PRE-MIX 250 ML IV SCH ×4 (02:27→20:41)
[2021-04-28] MEDS: DexMEDEtomidine 250 ML DRIP 250 ML IV SCH ×2 (02:50→14:05)
[2021-04-28 03:07] LABS: ABG BASE EXCESS 2.8 MMOL/L (-2.5-2.5); ABG OXYGEN SATURATION 97 % (94-100); ABG PCO2 46 MMHG (35-45); ABG PO2 92 MMHG (79-93); ABG TCO2 28.3 MMOL/L (21.0-31.0); BASOPHILS % (AUTO) 0 % (0-10); EOSINOPHILS # (AUTO) 0.2 10^3/uL (0.0-0.3); EOSINOPHILS % (AUTO) 1 % (0-10); HEMATOCRIT 34 % (35-52); HEMOGLOBIN 10.7 g/dL (11.5-16.0); LYMPHOCYTES % (AUTO) 8 % (12-44); MEAN CORPUSCULAR HEMOGLOBIN 28 pg (25-34); MEAN CORPUSCULAR HGB CONC 32 g/dL (32-36); MEAN CORPUSCULAR VOLUME 88 fL (80-99); MEAN PLATELET VOLUME 9.7 fL (9.0-12.2); MONOCYTES # (AUTO) 0.8 10^3/uL (0.0-1.0); MONOCYTES % (AUTO) 7 % (0-12); NEUTROPHILS # (AUTO) 9.8 10^3/uL (1.8-7.8); NEUTROPHILS % (AUTO) 82 % (42-75); PLATELET COUNT 417 10^3/uL (130-400)
[2021-04-28 03:10] LABS: ALLENS TEST ART LINE; INSPIRED O2 60%; PATIENT TEMP 38.2; VENTILATOR YES
[2021-04-28 03:18] LABS: CHLORIDE 108 MMOL/L (98-107); POTASSIUM 3.1 MMOL/L (3.6-5.0); SODIUM 143 MMOL/L (135-145)
[2021-04-28 03:19] LABS: CALCIUM 8.4 MG/DL (8.5-10.1)
[2021-04-28 03:20] LABS: GLUCOSE 96 MG/DL (70-105)
[2021-04-28 03:21] LABS: CARBON DIOXIDE 26 MMOL/L (21-32)
[2021-04-28 03:23] LABS: CREATININE SERUM 0.53 MG/DL (0.60-1.30); GFR ESTIMATED > 60
[2021-04-28 03:24] LABS: BUN/CREATININE RATIO 11
[2021-04-28] MEDS: POTASSIUM CL 10MEQ/50ML IVPB 50 ML IV SCH ×4 (03:43→05:42)
[2021-04-28] MEDS: KCL 20 MEQ TAB (K-DUR) PO SCH (05:15)
[2021-04-28] MEDS: MAGNESIUM 1 GM/100 ML IVPB 100 ML IV SCH (05:15)
--- NOTE | 2021-04-28 07:02 | Occ Therapy Progress Note ---
Therapy Progress Note Pt is currently intubated. OT will monitor pt status and initiate treatment when pt is medically stable and able to actively participate in skilled therapy. MADISYN ROGERS Apr 28, 2021 07:02
--- NOTE | 2021-04-28 07:56 | Physical Therapy Progress Note ---
Therapy Progress Note Patient currently sedated and intubated. PT will continue to monitor patient status and initiate treatment when patient is able to actively participate with skilled therapy. ROBERTO LAWS PT Apr 28, 2021 07:56
[2021-04-28] MEDS: NOREPINEPHRINE 8 MG/250 ML 250 ML IV SCH ×2 (08:30→20:23)
[2021-04-28] MEDS: ACETAMINOPHEN 325 MG TABLET PO PRN ×2 (08:37→14:10)
[2021-04-28] MEDS: METOCLOPRAMIDE INJ 10 MG/2 ML (REGLAN) IVP SCH ×3 (08:37→20:42)
[2021-04-28] MEDS: LACRI-LUBE OPTHALMIC OINT 3.5 GM TUBE OU SCH ×2 (08:37→20:42)
[2021-04-28] MEDS: guaiFENesin (MUCINEX) 600 MG TAB PO SCH ×2 (08:37→20:42)
[2021-04-28] MEDS: PANTOPRAZOLE 40 MG (PROTONIX) VIAL IV SCH ×2 (08:37→20:42)
[2021-04-28] MEDS: ASCORBIC ACID (VIT C) 500 MG TABLET PO SCH ×2 (08:37→20:42)
[2021-04-28] MEDS: ENOXAPARIN 40 MG/0.4 ML (LOVENOX) SYR SC SCH ×2 (08:37→20:42)
--- NOTE | 2021-04-28 09:59 | Diagnostic Imaging Report ---
Indication: Respiratory distress. Compared: 04/27/2021 Findings: 5 lobe airspace disease is redemonstrated. An ET tube tip is up approximately positioned and just above the thoracic inlet, about 6 cm from the level of the mid to lower 3rd thoracic trachea. Right PICC at the lower SVC. No pneumothorax. Impression: Severe 5 lobe airspace disease persists. The ET tube is positioned shallow and is about 6 cm above the junction mid to lower thirds thoracic trachea. Dictated by: Dictated on workstation # [id number]
--- NOTE | 2021-04-28 10:44 | Tele-ICU Progress Note ---
Subjective Date Seen by a Provider: Apr 28, 2021 Time Seen by a Provider: 10:44 Sepsis Event Evaluation Height, Weight, BMI Height: '" Weight: lbs. oz. kg; 47.01 BMI Method: Focused Exam Time of Focused Exam: 09:00 Exam Exam Patient acknowledged, consented, and participated in this virtual visit which was conducted using real time audio/video Vital Signs Date Time Temp Pulse Resp B/P (MAP) Pulse Ox O2 Delivery O2 Flow Rate FiO2 04/28/21 10:34 61 19 96 60 04/28/21 10:00 38.4 63 16 136/67 (90) 97 Mechanical Ventilator 60.00 04/28/21 09:00 38.4 57 17 119/61 (80) 95 Mechanical Ventilator 60.00 04/28/21 08:00 38.3 61 16 141/72 (95) 97 Mechanical Ventilator 60.00 04/28/21 08:00 98 Mechanical Ventilator 60 04/28/21 07:00 38.3 71 15 147/77 (100) 97 Mechanical Ventilator 60.00 04/28/21 07:00 69 04/28/21 06:22 66 19 97 60 04/28/21 06:00 38.3 65 17 144/76 (98) 97 Mechanical Ventilator 60.00 04/28/21 05:00 38.3 64 15 142/75 (97) 97 Mechanical Ventilator 60.00 04/28/21 04:00 98 Mechanical Ventilator 60 04/28/21 04:00 38.3 68 15 103/54 (70) 95 Mechanical Ventilator 60.00 04/28/21 03:00 38.2 75 25 122/76 (91) 97 Mechanical Ventilator 60.00 04/28/21 02:50 67 106/74 04/28/21 02:00 38.4 66 28 107/71 (83) 96 Mechanical Ventilator 60.00 04/28/21 01:58 67 19 97 60 04/28/21 01:00 38.4 67 15 161/74 (103) 94 Mechanical Ventilator 60.00 04/28/21 01:00 67 04/28/21 00:00 98 Mechanical Ventilator 60 04/28/21 00:00 38.3 73 14 114/56 (75) 95 Mechanical Ventilator 60.00 04/27/21 23:00 38.4 76 13 103/48 (66) 95 Mechanical Ventilator 60.00 04/27/21 22:07 75 20 96 60 04/27/21 22:00 38.3 75 14 143/69 (93) 96 Mechanical Ventilator 60.00 04/27/21 21:00 38.2 74 15 150/72 (98) 96 Mechanical Ventilator 60.00 04/27/21 20:08 66 130/62 04/27/21 20:00 98 Mechanical Ventilator 60 04/27/21 20:00 38.1 75 16 147/70 (95) 95 Mechanical Ventilator 60.00 04/27/21 19:00 38.0 71 16 146/68 (94) 95 Mechanical Ventilator 60.00 04/27/21 19:00 71 04/27/21 18:26 66 20 93 60 04/27/21 18:24 37.0 04/27/21 18:00 37.9 70 13 132/61 (84) 94 Mechanical Ventilator 60.00 04/27/21 17:00 37.9 70 17 134/60 (84) 94 Mechanical Ventilator 60.00 04/27/21 16:38 98 Mechanical Ventilator 60 04/27/21 16:34 74 38 92 60 04/27/21 16:00 37.6 77 141/66 (91) 95 Mechanical Ventilator 60.00 04/27/21 15:00 37.7 80 127/60 (82) 95 Mechanical Ventilator 60.00 04/27/21 14:02 68 17 93 60 04/27/21 14:00 37.7 71 113/55 (74) 93 Mechanical Ventilator 60.00 04/27/21 13:00 37.7 66 124/60 (81) 93 Mechanical Ventilator 60.00 04/27/21 12:46 78 04/27/21 12:10 93 Mechanical Ventilator 60 04/27/21 12:00 37.9 78 137/65 (89) 94 Mechanical Ventilator 60.00 04/27/21 11:26 56 19 92 60 04/27/21 11:05 70 144/73 04/27/21 11:00 37.9 72 14 106/52 (70) 95 Mechanical Ventilator 60.00 I & O 04/28/21 07:00 Intake Total 450 ml Output Total 3800 ml Balance -3350 ml Height & Weight Height: '" Weight: lbs. oz. kg; 47.01 BMI Method: General Appearance: Obese, Other HEENT: Other (ETT) Neck: Normal Inspection, Supple Respiratory: Decreased Breath Sounds, Other Cardiovascular: Regular Rate, Rhythm, No Murmur Capillary Refill: Less Than 3 Seconds Peripheral Pulses: 1+ Dorsalis Pedis (R), 1+ Left Dors-Pedis (L) (see free text), 1+ Radial Pulses (R) Extremity: No Calf Tenderness, No Pedal Edema Neurologic/Psychiatric: Alert, Oriented x3 Skin: Normal Color, Warm/Dry Lymphatic: No Adenopathy Results Lab Laboratory Tests 04/27/21 02:55 04/28/21 02:45 Assessment/Plan Assessment/Plan (Tele-ICU Physician , Progress Note ) BEDSIDE RN IS NOT AVAILABLE TO DISCUSS PATIENT, A/P DONE BASED ON DATA ABAILABLE IN EMR AND VIDEO ASSESSMENT BY E-CAMERA. FINAL PLAN /DECISIONS ARE BY ROUNDING BEDSIDE PHYSICIANS Available chart/ vitals / labs / Images reviewed Video assessment done using teleICU camera, rest of exam as per RN Events overnight : FEBRILE. PERSISTENT LOW GRADE FEVER hemodynamically stable, no pressors, I/O = neg [id number] Drips: Consultants: Hospital course: 04/15 - COVID 3 L o2 04/16 - to ICU VAPOTHERM 40 L 100% 04/17 - DESATS ON vt40l 100% - faled BIPAP - INTUBATED 04/19 - NG dark outpupt - protonix bid 04/20- 100%/+10 desats -> PEEP 16, diuresis 2.7 L 04/21 - fio2 40% peep 16 04/22 - peep14 04/23 - increased FIO2 to 90% - added ZOCYN , - DIURESIS 2.7 L 04/24 - 65% peep 16, changed to DIAMOX from lasix 04/27 - Intermittent hypotension probably due to volume depletion, now improved with weaning precedex and holding cardiazem 04/28 , off diamox fio2 60% Video assessment done using teleICU camera, rest of exam as per RN Discussed with RN. Consultants: VENT SETTINGS. AC 16 - TV 400 peep 16 fio2 ( 90 % ).- back to 600% PAP 37 ABG reviewed Sedation: RASS -0 - DOES follow scommands, ( propofol OFF 04/23 with elev TGL ) , precedex .08, fentanyl 250 - ativan prn IV Not candidate for SBTContraindications : PEEP / CXR A/P Acute resp failure - - intubated 04/17 - - PEEP SENSITIVE ! -04/23 RESUME proning FOR 12 h ( does not tolerate TF in prone position ) tiday on 65 % - peep 16 - KEEP PEEP 16 today - cont gentle diuresis, CHANGE TO DIAMOX WITH MET ALKALOSIS ( on addition to resp acidosis ( DOES follow scommands, COVID PNA - dx 7 [place] - steroids IV- START TO TAPER - remdesivir - ? outside of the Tx window - ddimer LOW 04/16 -. 04/23 proph lovenox RUL infiltrate - suspected bact infection - low PCT - off ABX , , 04/23 - new fever and ? fio2 - ADDed ZOSYN EMPIRICALLY , cx pending DM II - ISS Transaminases elevation - probably due to COVID - to repeat today Add d5W with K ( on diuresis - adjust to lytes cont TF today Lines : 04/17 PICC (Central Line Necessity Reviewed) Manjarrez: + OG: + Nutrition: TF - bolus WHILE SUPINE Analgesia: fentanyl gtt Anxiety/ delirium precedex ,l ativan VTE Prophylaxis: lovenox Stress Ulcer Prophylaxis: PPI BID Glycemic Control: + no skin breakes - as per RN Plans in collaboration with bedside consultants and IM MDs. A total of 37 minutes of critical care time was devoted to this patient today, required to treat and/or prevent further deterioration of critical care condition ( as above HUI NAIK MD Apr 28, 2021 10:44
[2021-04-28] MEDS: D5W W/KCL 20 MEQ/L 1,000 ML IV SCH (14:09)
--- NOTE | 2021-04-28 15:22 | Progress Note - Hospitalist ---
Subjective HPI/CC On Admission Date Seen by Provider: Apr 28, 2021 Time Seen by Provider: 09:00 Marie Pillai is a 60 year old female with PMH HTN, insulin dependent T2DM, migraines, morbid obesity, who presented with shortness of breath. She was recently diagnosed with COVID-19. She has not been on any medications for COVID. She also has a cough. She reports fevers and chills. She has not had much of an appetite. She denies chest pain. Subjective/Events-last exam She remains intubated and sedated. Focused Exam Time of Focused Exam: 09:00 Objective Exam Vital Signs Vital Signs Date Time Temp Pulse Resp B/P (MAP) Pulse Ox O2 Delivery O2 Flow Rate FiO2 04/28/21 14:29 62 18 92 60 04/28/21 14:05 137/62 04/28/21 12:00 Mechanical Ventilator 04/28/21 10:00 38.4 60.00 Capillary Refill : Less Than 3 Seconds General Appearance: No Apparent Distress, Obese, Other (Intubated and sedated) Respiratory: Other (Intubated and mechanically ventilated, coarse breath sounds bilaterally) Cardiovascular: Regular Rate, Rhythm, No Murmur Gastrointestinal: Normal Bowel Sounds, Soft Extremity: Normal Inspection, No Pedal Edema Neurologic/Psychiatric: Other (Sedated) Skin: Normal Color, Warm/Dry Results/Procedures Lab Laboratory Tests 04/28/21 02:45 Patient resulted labs reviewed. Imaging: Reviewed Imaging Report Assessment/Plan Assessment and Plan Assess & Plan/Chief Complaint Acute respiratory distress syndrome due to COVID-19 Pneumonia due to COVID-19 Lymphopenia associated with COVID-19 Elevated LFTs Elevated d-dimer Endotracheally intubated Poor prognosis s/p decadron s/p 1 unit convalescent plasma Intubated 04/17, ventilator requirements stable, FiO2 60% and PEEP 12 TeleICU consulted, appreciate assistance Procal remains within normal limits s/p Zosyn Consider LTAC transfer T2DM with hyperglycemia Steroid induced hyperglycemia Levemir Sliding scale insulin HTN Hold cardizem Morbid obesity Clinically significant, no acute management needs DVT prophylaxis: Lovenox GI prophylaxis: Protonix Bacterial pneumonia, resolved Critical Care Critically Ill Patient Diagnosis/Problems Diagnosis/Problems (1) Acute respiratory distress syndrome (ARDS) due to COVID-19 virus Status: Acute (2) Pneumonia due to COVID-19 virus Status: Acute (3) Acute respiratory failure due to COVID-19 Status: Acute (4) Lymphopenia associated with COVID-19 Status: Acute (5) Elevated LFTs Status: Acute (6) Elevated d-dimer Status: Acute (7) Morbid obesity Status: Chronic (8) HTN (hypertension) Status: Chronic (9) T2DM (type 2 diabetes mellitus) Status: Chronic (10) Goals of care, counseling/discussion Status: Acute (11) Poor prognosis Status: Acute JUANI FUENTES MD Apr 28, 2021 15:22
[2021-04-28] MEDS: polyethylene glycoL POWDER 17 GM (MIRALAX) PACK PO SCH (20:42)
[2021-04-29] VITALS (30 sets, daily range): BP systolic 100–168; BP diastolic 52–82
[2021-04-29] MEDS: DexMEDEtomidine 250 ML DRIP 250 ML IV SCH ×5 (00:01→23:47)
[2021-04-29] MEDS: inSUlin ASPART (NovoLOG) 1 UNIT/0.01 ML (CHARGE PER UNIT) SC SCH ×5 (00:02→23:51)
[2021-04-29] MEDS: ACETAMINOPHEN 325 MG TABLET PO PRN ×2 (02:06→09:33)
[2021-04-29] MEDS: RT-LEVALBUTEROL (XOPENEX) 1.25 MG/3 ML NEB NON-FORMULARY INH SCH ×6 (02:18→22:38)
[2021-04-29 02:20] LABS: ABG BASE EXCESS 2.3 MMOL/L (-2.5-2.5); ABG OXYGEN SATURATION 94 % (94-100); ABG PCO2 44 MMHG (35-45); ABG PO2 77 MMHG (79-93); ABG TCO2 27.5 MMOL/L (21.0-31.0)
[2021-04-29 02:21] LABS: ALLENS TEST ART LINE; INSPIRED O2 60%; PATIENT TEMP 38; VENTILATOR YES
[2021-04-29 02:22] LABS: BASOPHILS % (AUTO) 0 % (0-10); EOSINOPHILS # (AUTO) 0.1 10^3/uL (0.0-0.3); EOSINOPHILS % (AUTO) 1 % (0-10); HEMATOCRIT 32 % (35-52); LYMPHOCYTES # (AUTO) 1.1 10^3/uL (1.0-4.0); LYMPHOCYTES % (AUTO) 10 % (12-44); MEAN CORPUSCULAR HEMOGLOBIN 28 pg (25-34); MEAN CORPUSCULAR HGB CONC 32 g/dL (32-36); MEAN CORPUSCULAR VOLUME 88 fL (80-99); MEAN PLATELET VOLUME 9.7 fL (9.0-12.2); MONOCYTES % (AUTO) 9 % (0-12); NEUTROPHILS # (AUTO) 8.9 10^3/uL (1.8-7.8); NEUTROPHILS % (AUTO) 79 % (42-75); PLATELET COUNT 407 10^3/uL (130-400); WHITE BLOOD COUNT 11.3 10^3/uL (4.3-11.0)
[2021-04-29] MEDS: fentaNYL DRIP PRE-MIX 250 ML IV SCH ×5 (02:22→23:47)
[2021-04-29 02:33] LABS: CHLORIDE 103 MMOL/L (98-107); POTASSIUM 3.7 MMOL/L (3.6-5.0); SODIUM 137 MMOL/L (135-145)
[2021-04-29 02:34] LABS: CALCIUM 8.2 MG/DL (8.5-10.1)
[2021-04-29 02:35] LABS: GLUCOSE 122 MG/DL (70-105)
[2021-04-29 02:36] LABS: CARBON DIOXIDE 25 MMOL/L (21-32)
[2021-04-29 02:38] LABS: PHOSPHORUS 2.8 MG/DL (2.3-4.7)
[2021-04-29 02:39] LABS: GFR ESTIMATED > 60
[2021-04-29 02:40] LABS: BUN/CREATININE RATIO 16
[2021-04-29 02:41] LABS: MAGNESIUM 1.8 MG/DL (1.6-2.4)
[2021-04-29] MEDS: KCL 20 MEQ TAB (K-DUR) PO SCH (04:55)
[2021-04-29] MEDS: MAGNESIUM 1 GM/100 ML IVPB 100 ML IV SCH (04:55)
[2021-04-29] MEDS: POTASSIUM CL 10MEQ/50ML IVPB 50 ML IV SCH (04:55)
[2021-04-29] MEDS: LORazepam INJ 2 MG/ML (ATIVAN) VIAL IVP PRN (05:15)
--- NOTE | 2021-04-29 06:55 | Occ Therapy Progress Note ---
Therapy Progress Note Pt is in the process of being intubated. OT will continue to monitor pt, and initiate therapy when pt is more medically stable and able to actively participate in skilled therapy. MADISYN ROGERS Apr 29, 2021 06:55
--- NOTE | 2021-04-29 07:53 | Physical Therapy Progress Note ---
Therapy Progress Note Patient currently sedated and intubated. PT will continue to monitor patient status and initiate treatment when patient is able to actively participate with skilled therapy. ROBERTO LAWS PT Apr 29, 2021 07:53
[2021-04-29] MEDS: D5W W/KCL 20 MEQ/L 1,000 ML IV SCH (09:26)
[2021-04-29] MEDS: LACRI-LUBE OPTHALMIC OINT 3.5 GM TUBE OU SCH ×2 (09:27→20:19)
[2021-04-29] MEDS: NOREPINEPHRINE 8 MG/250 ML 250 ML IV SCH ×2 (09:27→19:26)
[2021-04-29] MEDS: ENOXAPARIN 40 MG/0.4 ML (LOVENOX) SYR SC SCH ×2 (09:27→20:19)
[2021-04-29] MEDS: ASCORBIC ACID (VIT C) 500 MG TABLET PO SCH ×2 (09:27→21:04)
[2021-04-29] MEDS: METOCLOPRAMIDE INJ 10 MG/2 ML (REGLAN) IVP SCH ×3 (09:27→20:19)
[2021-04-29] MEDS: PANTOPRAZOLE 40 MG (PROTONIX) VIAL IV SCH ×2 (09:27→20:19)
[2021-04-29] MEDS: guaiFENesin (MUCINEX) 600 MG TAB PO SCH ×2 (09:27→21:04)
[2021-04-29] MEDS ORDERED: FUROSEMIDE 40 MG/4 ML INJ (LASIX) IVP ONE (11:45)
[2021-04-29] MEDS ORDERED: ALBUMIN 25% 25 GM/100 ML 100 ML IV ONE (11:45)
--- NOTE | 2021-04-29 12:04 | Tele-ICU Progress Note ---
Subjective Date Seen by a Provider: Apr 29, 2021 Time Seen by a Provider: 12:04 Sepsis Event Evaluation Height, Weight, BMI Height: '" Weight: lbs. oz. kg; 47.01 BMI Method: Focused Exam Time of Focused Exam: 09:00 Exam Exam Patient acknowledged, consented, and participated in this virtual visit which was conducted using real time audio/video Vital Signs Date Time Temp Pulse Resp B/P (MAP) Pulse Ox O2 Delivery O2 Flow Rate FiO2 04/29/21 11:14 92 Mechanical Ventilator 75 04/29/21 11:00 38.7 84 15 106/59 (75) 91 Mechanical Ventilator 75.00 04/29/21 10:00 38.7 81 16 109/62 (78) 91 Mechanical Ventilator 75.00 04/29/21 09:54 73 21 91 75 04/29/21 09:00 38.5 81 18 127/68 (87) 93 Mechanical Ventilator 75.00 04/29/21 08:18 81 123/68 04/29/21 08:00 98 Mechanical Ventilator 75 04/29/21 08:00 38.4 82 36 127/68 (87) 93 Mechanical Ventilator 75.00 04/29/21 07:00 38.4 84 27 131/68 (89) 93 Mechanical Ventilator 75.00 04/29/21 06:52 85 04/29/21 06:21 82 19 93 75 04/29/21 06:00 38.5 78 36 104/53 (70) 93 Mechanical Ventilator 75.00 04/29/21 05:27 Mechanical Ventilator 75.00 04/29/21 05:00 38.5 68 20 156/71 (99) 91 Mechanical Ventilator 60.00 04/29/21 04:00 38.7 73 19 154/71 (98) 93 Mechanical Ventilator 60.00 04/29/21 04:00 95 Mechanical Ventilator 60 04/29/21 03:00 39.1 69 157/70 (99) 92 Mechanical Ventilator 60.00 04/29/21 02:18 61 21 90 60 04/29/21 02:00 39.0 53 27 126/69 (88) 92 Mechanical Ventilator 60.00 04/29/21 01:00 63 04/29/21 01:00 38.5 63 20 157/71 (99) 92 Mechanical Ventilator 60.00 04/29/21 00:01 67 166/72 04/29/21 00:00 38.7 67 20 168/72 (104) 92 Mechanical Ventilator 60.00 04/29/21 00:00 95 Mechanical Ventilator 60 04/28/21 23:00 38.5 67 20 166/72 (103) 92 Mechanical Ventilator 60.00 04/28/21 22:02 67 20 93 60 04/28/21 22:00 38.3 68 21 168/75 (106) 93 Mechanical Ventilator 60.00 04/28/21 21:00 38.2 72 20 178/79 (112) 93 Mechanical Ventilator 60.00 04/28/21 20:00 38.1 72 19 173/78 (109) 94 Mechanical Ventilator 60.00 04/28/21 20:00 Mechanical Ventilator 60.00 04/28/21 20:00 95 Mechanical Ventilator 60 04/28/21 19:00 38.1 71 18 164/74 (104) 94 Mechanical Ventilator 60.00 04/28/21 19:00 71 04/28/21 18:28 63 18 94 60 04/28/21 18:00 38.2 68 15 159/73 (101) 95 Mechanical Ventilator 60.00 04/28/21 17:00 38.3 68 15 156/70 (98) 94 Mechanical Ventilator 60.00 04/28/21 16:00 38.4 75 23 160/72 (101) 93 Mechanical Ventilator 60.00 04/28/21 16:00 37.2 04/28/21 15:15 95 Mechanical Ventilator 60 04/28/21 14:29 62 18 92 60 04/28/21 14:05 137/62 04/28/21 13:00 63 I & O 04/29/21 07:00 Intake Total 235 ml Output Total 1275 ml Balance -1040 ml Height & Weight Height: '" Weight: lbs. oz. kg; 47.01 BMI Method: General Appearance: No Apparent Distress, Obese, Other (Intubated and sedated) HEENT: Other (ETT) Neck: Normal Inspection, Supple Respiratory: Other (Intubated and mechanically ventilated, coarse breath sounds bilaterally) Cardiovascular: Regular Rate, Rhythm, No Murmur Capillary Refill: Less Than 3 Seconds Peripheral Pulses: 1+ Dorsalis Pedis (R), 1+ Left Dors-Pedis (L) (see free text), 1+ Radial Pulses (R) Extremity: Normal Inspection, No Pedal Edema Neurologic/Psychiatric: Other (Sedated) Skin: Normal Color, Warm/Dry Lymphatic: No Adenopathy Results Lab Laboratory Tests 04/28/21 02:45 04/29/21 02:10 Assessment/Plan Assessment/Plan (Tele-ICU Physician , Progress Note ) Available chart/ vitals / labs / Images reviewed Video assessment done using teleICU camera, rest of exam as per RN Events overnight : FEBRILE. PERSISTENT LOW GRADE FEVER 38.5 hemodynamically stable, no pressors, I/O = [id number] Drips: Consultants: Hospital course: 04/15 - COVID 3 L o2 04/16 - to ICU VAPOTHERM 40 L 100% 04/17 - DESATS ON vt40l 100% - faled BIPAP - INTUBATED 04/19 - NG dark outpupt - protonix bid 04/20- 100%/+10 desats -> PEEP 16, diuresis 2.7 L 04/21 - fio2 40% peep 16 04/22 - peep14 04/23 - increased FIO2 to 90% - added ZOCYN , - DIURESIS 2.7 L 04/24 - 65% peep 16, changed to DIAMOX from lasix 04/27 - Intermittent hypotension probably due to volume depletion, now improved with weaning precedex and holding cardiazem 04/28 , off diamox fio2 60% 04/29 - STARTING ERAXIS AND TPN , INCREASE PEEP TO 16 Video assessment done using teleICU camera, rest of exam as per RN Discussed with RN. Consultants: VENT SETTINGS. AC 16 - TV 400 peep 16 fio2 ( 90 % ).- back to 600% PAP 37 ABG reviewed Sedation: RASS -3 - DOES NOT follow scommands, ( propofol OFF 04/23 with elev TGL ) , precedex .08, fentanyl 250 - ativan prn IV Not candidate for SBTContraindications : PEEP / CXR A/P Acute resp failure - - intubated 04/17 - - PEEP SENSITIVE ! 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 outside of the Tx window - ddimer LOW 04/16 -. 04/23 proph lovenox RUL infiltrate - suspected bact infection - low PCT - off ABX , , 04/23 - new fever and ? fio2 -> FINISHED ZOSYN EMPIRICALLY . - ADDING ERAXIS DM II - ISS Transaminases elevation - probably due to COVID - to repeat today DISFFICULTIES WITH TF - will check kub - ? ileus / constipation - cont small tf boluses and starting TPN 04/29 Add d5W with K ( on diuresis - adjust to lytes - will stop after tpn starting Lines : 04/17 PICC (Central Line Necessity Reviewed) , NOW picc ON RIGHT Manjarrez: + OG: + Nutrition: TF not tolerated - tpm 04/29 Analgesia: fentanyl gtt Anxiety/ delirium precedex VTE Prophylaxis: lovenox Stress Ulcer Prophylaxis: PPI BID Glycemic Control: + no skin breakes - as per RN Plans in collaboration with bedside consultants and IM MDs. A total of 40 minutes of critical care time was devoted to this patient today, required to treat and/or prevent further deterioration of critical care condition ( as above HUI NAIK MD Apr 29, 2021 12:04
--- NOTE | 2021-04-29 12:23 | Diagnostic Imaging Report ---
Indication: Pain and COVID. 3 supine abdominal radiographs are performed. Sensitivity limited by motion and body habitus. Confirms a OG catheter to be in the distal stomach. There are clips in the right upper quadrant. No pathological fecal loading and no abnormal air containing dilated small bowel. IMPRESSION: OG in the distal stomach. No findings of obstruction or abnormal fecal loading. Dictated by: Dictated on workstation # [id number]
[2021-04-29] MEDS ORDERED: KETOROLAC 15 MG/ML VIAL ONE (12:34)
[2021-04-29] MEDS ORDERED: ANIDULAFUNGIN 200 MG/NS 250 ML IVPB IV NR ×2 (13:00)
--- NOTE | 2021-04-29 13:02 | Progress Note - Hospitalist ---
Subjective HPI/CC On Admission Date Seen by Provider: Apr 29, 2021 Time Seen by Provider: 09:00 Marie Pillai is a 60 year old female with PMH HTN, insulin dependent T2DM, migraines, morbid obesity, who presented with shortness of breath. She was recently diagnosed with COVID-19. She has not been on any medications for COVID. She also has a cough. She reports fevers and chills. She has not had much of an appetite. She denies chest pain. Subjective/Events-last exam She remains intubated and sedated. She is having fevers. Focused Exam Time of Focused Exam: 09:00 Objective Exam Vital Signs Vital Signs Date Time Temp Pulse Resp B/P (MAP) Pulse Ox O2 Delivery O2 Flow Rate FiO2 04/29/21 12:45 122/75 04/29/21 12:00 37.5 75 22 48 Mechanical Ventilator 75.00 04/29/21 11:14 75 Capillary Refill : Less Than 3 Seconds General Appearance: No Apparent Distress, Obese, Other (Intubated and sedated) Respiratory: No Respiratory Distress, Crackles, Decreased Breath Sounds, Other (Intubated and mechanically ventilated) Cardiovascular: Regular Rate, Rhythm, No Murmur Gastrointestinal: Normal Bowel Sounds, Soft Extremity: Normal Inspection, Pedal Edema Neurologic/Psychiatric: Other (Sedated) Skin: Normal Color, Warm/Dry Results/Procedures Lab Laboratory Tests 04/29/21 02:10 Patient resulted labs reviewed. Imaging: Reviewed Imaging Report Assessment/Plan Assessment and Plan Assess & Plan/Chief Complaint Acute respiratory distress syndrome due to COVID-19 Pneumonia due to COVID-19 Lymphopenia associated with COVID-19 Elevated LFTs Elevated d-dimer Endotracheally intubated Poor prognosis s/p decadron s/p 1 unit convalescent plasma Intubated 04/17, ventilator requirements stable, FiO2 60% and PEEP 12 TeleICU consulted, appreciate assistance Procal remains within normal limits s/p Zosyn Starting Eraxis today per Tele[facility] following T2DM with hyperglycemia Steroid induced hyperglycemia Levemir Sliding scale insulin HTN Hold cardizem Morbid obesity Clinically significant, no acute management needs DVT prophylaxis: Lovenox GI prophylaxis: Protonix Bacterial pneumonia, resolved Critical Care Critically Ill Patient Diagnosis/Problems Diagnosis/Problems (1) Acute respiratory distress syndrome (ARDS) due to COVID-19 virus Status: Acute (2) Pneumonia due to COVID-19 virus Status: Acute (3) Acute respiratory failure due to COVID-19 Status: Acute (4) Lymphopenia associated with COVID-19 Status: Acute (5) Elevated LFTs Status: Acute (6) Elevated d-dimer Status: Acute (7) Morbid obesity Status: Chronic (8) HTN (hypertension) Status: Chronic (9) T2DM (type 2 diabetes mellitus) Status: Chronic (10) Goals of care, counseling/discussion Status: Acute (11) Poor prognosis Status: Acute JUANI FUENTES MD Apr 29, 2021 13:02
[2021-04-29 13:35] LABS: HEMATOCRIT 29 % (35-52); HEMOGLOBIN 8.7 g/dL (11.5-16.0); MEAN CORPUSCULAR HEMOGLOBIN 27 pg (25-34); MEAN CORPUSCULAR HGB CONC 31 g/dL (32-36); MEAN CORPUSCULAR VOLUME 89 fL (80-99); MEAN PLATELET VOLUME 9.6 fL (9.0-12.2); PLATELET COUNT 296 10^3/uL (130-400); WHITE BLOOD COUNT 9.4 10^3/uL (4.3-11.0)
[2021-04-29] MEDS: KETOROLAC 15 MG/ML VIAL IVP PRN (13:45)
[2021-04-29] MEDS ORDERED: POTASSIUM PHOSPHATE 15 MM/NS 250 ML IVPB IV ONE ×2 (14:00)
[2021-04-29] MEDS ORDERED: 3-IN-1 TPN IV SCH ×10 (17:00)
[2021-04-29] MEDS: MAGNESIUM 1 GM/100 ML IVPB IV SCH ×4 (17:06→18:59)
[2021-04-29] MEDS: POTASSIUM CL 10 MEQ/50 ML IVPB (PRE-MIX) IV SCH ×2 (17:10→18:03)
[2021-04-29] MEDS: 1/2 NS IV SOLUTION 1,000 ML IV SCH (17:11)
[2021-04-29] MEDS: 3-IN-1 TPN IV SCH ×10 (17:13)
[2021-04-29] MEDS: polyethylene glycoL POWDER 17 GM (MIRALAX) PACK PO SCH (21:04)
[2021-04-30] VITALS (28 sets, daily range): BP systolic 105–155; BP diastolic 47–79
[2021-04-30] MEDS: RT-LEVALBUTEROL (XOPENEX) 1.25 MG/3 ML NEB NON-FORMULARY INH SCH ×6 (01:37→23:01)
[2021-04-30] MEDS: KETOROLAC 15 MG/ML VIAL IVP PRN ×2 (01:53→20:00)
[2021-04-30 02:19] LABS: ABG BASE EXCESS 2.4 MMOL/L (-2.5-2.5); ABG OXYGEN SATURATION 95 % (94-100); ABG PCO2 45 MMHG (35-45); ABG PO2 82 MMHG (79-93); ABG TCO2 27.7 MMOL/L (21.0-31.0)
[2021-04-30 02:20] LABS: ALLENS TEST ART LINE; INSPIRED O2 50%; PATIENT TEMP 39; VENTILATOR YES
[2021-04-30 02:21] LABS: BASOPHILS % (AUTO) 0 % (0-10); EOSINOPHILS # (AUTO) 0.1 10^3/uL (0.0-0.3); EOSINOPHILS % (AUTO) 1 % (0-10); HEMATOCRIT 28 % (35-52); HEMOGLOBIN 8.6 g/dL (11.5-16.0); LYMPHOCYTES # (AUTO) 0.8 10^3/uL (1.0-4.0); LYMPHOCYTES % (AUTO) 9 % (12-44); MEAN CORPUSCULAR HEMOGLOBIN 27 pg (25-34); MEAN CORPUSCULAR HGB CONC 31 g/dL (32-36); MEAN CORPUSCULAR VOLUME 89 fL (80-99); MEAN PLATELET VOLUME 9.8 fL (9.0-12.2); MONOCYTES # (AUTO) 0.7 10^3/uL (0.0-1.0); MONOCYTES % (AUTO) 8 % (0-12); NEUTROPHILS % (AUTO) 81 % (42-75); PLATELET COUNT 297 10^3/uL (130-400); WHITE BLOOD COUNT 8.6 10^3/uL (4.3-11.0)
[2021-04-30 04:32] LABS: ALBUMIN 2.6 GM/DL (3.2-4.5); CHLORIDE 106 MMOL/L (98-107); SODIUM 141 MMOL/L (135-145)
[2021-04-30 04:33] LABS: CALCIUM 7.9 MG/DL (8.5-10.1)
[2021-04-30 04:34] LABS: GLUCOSE 337 MG/DL (70-105); TOTAL PROTEIN 5.5 GM/DL (6.4-8.2)
[2021-04-30 04:35] LABS: CARBON DIOXIDE 25 MMOL/L (21-32)
[2021-04-30 04:36] LABS: BILIRUBIN,TOTAL 0.8 MG/DL (0.1-1.0)
[2021-04-30 04:37] LABS: PHOSPHORUS 2.1 MG/DL (2.3-4.7)
[2021-04-30 04:38] LABS: ALKALINE PHOSPHATASE 101 U/L (40-136); CREATININE SERUM 0.58 MG/DL (0.60-1.30); GFR ESTIMATED > 60
[2021-04-30 04:39] LABS: BUN/CREATININE RATIO 22
[2021-04-30 04:41] LABS: ALANINE AMINOTRANSFERASE 40 U/L (0-55); MAGNESIUM 2.4 MG/DL (1.6-2.4)
[2021-04-30] MEDS: MAGNESIUM 1 GM/100 ML IVPB 100 ML IV SCH (04:42)
[2021-04-30] MEDS: POTASSIUM CL 10MEQ/50ML IVPB 50 ML IV SCH (04:42)
[2021-04-30] MEDS: KCL 20 MEQ TAB (K-DUR) PO SCH (04:43)
[2021-04-30] MEDS: DexMEDEtomidine 250 ML DRIP 250 ML IV SCH ×4 (05:43→21:37)
[2021-04-30] MEDS: inSUlin ASPART (NovoLOG) 1 UNIT/0.01 ML (CHARGE PER UNIT) SC SCH ×4 (05:43→23:04)
[2021-04-30] MEDS: fentaNYL DRIP PRE-MIX 250 ML IV SCH ×4 (05:43→21:37)
[2021-04-30] MEDS: NOREPINEPHRINE 8 MG/250 ML 250 ML IV SCH ×2 (06:35→16:32)
--- NOTE | 2021-04-30 06:51 | Occ Therapy Progress Note ---
Therapy Progress Note Pt is currently intubated. OT will continue to monitor pt and initiate therapy when pt is more medically stable and able to actively participate in skilled therapy. MADISYN ROGERS Apr 30, 2021 06:51
--- NOTE | 2021-04-30 07:42 | Tele-ICU Progress Note ---
Subjective Date Seen by a Provider: Apr 30, 2021 Time Seen by a Provider: 11:17 Subjective/Events-last exam 63 F with extensive COVID PNA/ARDS, On Anidulafungin, hyperal, off decadron vent AC 16 Vt 400 PEEP 14 FiO2 50%, ET has been repositioned, looks ok, d 13 of intubation, consulted with LTAC about placement, 7. CXR shows extensive bilateral infiltrates, ET ok KUB does not show ileus Off IV levophed since 04/28 Not working hard to breathe, on IV fenantyl 225, Precedex 1.5 has cough reflex, ,not much ET but + oral secetions Has PICC line, ,site looks ok, has OG, has Manjarrez, she will need Manjarrez Review of Systems Neurological: Other (sedated on vent) Sepsis Event Evaluation Height, Weight, BMI Height: '" Weight: lbs. oz. kg; 47.01 BMI Method: Focused Exam Time of Focused Exam: 09:00 Exam Exam Patient acknowledged, consented, and participated in this virtual visit which was conducted using real time audio/video Vital Signs Date Time Temp Pulse Resp B/P (MAP) Pulse Ox O2 Delivery O2 Flow Rate FiO2 04/30/21 07:28 60 22 90 50 04/30/21 06:00 39.0 67 33 127/79 (95) 91 Mechanical Ventilator 50.00 04/30/21 05:43 78 130/75 04/30/21 05:00 37.3 04/30/21 05:00 39.0 74 17 128/63 (84) 91 Mechanical Ventilator 50.00 04/30/21 04:00 39.1 78 19 132/77 (95) 91 Mechanical Ventilator 50.00 04/30/21 04:00 93 Mechanical Ventilator 50 04/30/21 03:00 39.2 78 16 130/75 (93) 92 Mechanical Ventilator 50.00 04/30/21 02:31 Mechanical Ventilator 50.00 04/30/21 02:00 39.2 72 133/63 (86) 91 Mechanical Ventilator 60.00 04/30/21 01:37 51 26 91 50 04/30/21 01:00 39.0 62 118/56 (76) 90 Mechanical Ventilator 60.00 04/30/21 01:00 70 04/30/21 00:00 92 Mechanical Ventilator 60 04/30/21 00:00 38.7 67 26 155/74 (101) 93 Mechanical Ventilator 60.00 04/29/21 23:47 73 131/64 04/29/21 23:00 38.6 73 17 131/64 (86) 93 Mechanical Ventilator 60.00 04/29/21 22:38 68 21 93 50 04/29/21 22:00 38.4 70 29 129/62 (84) 93 Mechanical Ventilator 60.00 04/29/21 21:00 38.3 70 19 128/62 (84) 93 Mechanical Ventilator 60.00 04/29/21 21:00 36.2 04/29/21 20:13 36.2 04/29/21 20:00 92 Mechanical Ventilator 60 04/29/21 20:00 38.3 74 15 127/63 (84) 94 Mechanical Ventilator 60.00 04/29/21 19:04 69 18 93 50 04/29/21 19:00 71 04/29/21 19:00 38.4 71 14 120/60 (80) 94 Mechanical Ventilator 60.00 04/29/21 18:04 112/58 04/29/21 18:00 38.4 66 20 110/57 (74) 93 Mechanical Ventilator 75.00 04/29/21 17:00 38.5 77 15 122/62 (82) 93 Mechanical Ventilator 75.00 04/29/21 16:00 92 Mechanical Ventilator 60 04/29/21 16:00 38.5 81 16 116/60 (78) 93 Mechanical Ventilator 75.00 04/29/21 15:00 38.6 83 16 121/65 (83) 91 Mechanical Ventilator 75.00 04/29/21 14:40 84 17 91 50 04/29/21 14:00 38.8 87 17 113/68 (83) 98 Mechanical Ventilator 75.00 04/29/21 13:00 39.2 73 17 106/65 (79) 97 Mechanical Ventilator 75.00 04/29/21 12:45 122/75 04/29/21 12:40 73 04/29/21 12:00 37.5 75 22 168/82 (110) 48 Mechanical Ventilator 75.00 04/29/21 11:14 92 Mechanical Ventilator 75 04/29/21 11:00 38.7 84 15 106/59 (75) 91 Mechanical Ventilator 75.00 04/29/21 10:00 38.7 81 16 109/62 (78) 91 Mechanical Ventilator 75.00 04/29/21 09:54 73 21 91 75 04/29/21 09:00 38.5 81 18 127/68 (87) 93 Mechanical Ventilator 75.00 04/29/21 08:18 81 123/68 04/29/21 08:00 98 Mechanical Ventilator 75 04/29/21 08:00 38.4 82 36 127/68 (87) 93 Mechanical Ventilator 75.00 I & O 04/30/21 07:00 Intake Total 240 ml Output Total 2775 ml Balance -2535 ml Height & Weight Height: '" Weight: lbs. oz. kg; 47.01 BMI Method: General Appearance: No Apparent Distress, Obese, Other (Intubated and sedated) HEENT: Other (ETT) Neck: Normal Inspection, Supple Respiratory: No Respiratory Distress, Crackles, Decreased Breath Sounds, Other (Intubated and mechanically ventilated) Cardiovascular: Regular Rate, Rhythm, No Murmur Capillary Refill: Less Than 3 Seconds Peripheral Pulses: 1+ Dorsalis Pedis (R), 1+ Left Dors-Pedis (L) (see free text), 1+ Radial Pulses (R) Gastrointestinal: normal bowel sounds, non tender, soft, other (hypoactive bowel sounds) Extremity: Normal Inspection, Pedal Edema Neurologic/Psychiatric: Other (Sedated) Skin: Normal Color, Warm/Dry Lymphatic: No Adenopathy Results Lab Laboratory Tests 04/29/21 02:10 04/29/21 13:20 04/30/21 02:00 04/30/21 04:10 Assessment/Plan Assessment/Plan Extensive COVID PNA with ARDS, not likely to be extubated in short term, will need to go to LTAC Possible RUL bacterial infection was on IV Zosyn now off, on empiric anti fungal will continue on high vent support DM2 on insulin Insulin detimer 50 units at night and sliding scale aspart, glu today 337, will increase insulin in TPN morbid obesity GIB and DVT prophylaxis- d dimer up to 6.72, on Lovenox 110 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
[2021-04-30] MEDS ORDERED: SODIUM PHOSPHATE INJ ONE (07:45)
[2021-04-30] MEDS ORDERED: NS INJ ONE (07:45)
--- NOTE | 2021-04-30 07:48 | Physical Therapy Progress Note ---
Therapy Progress Note Patient currently sedated and intubated. PT will continue to monitor patient status and initiate treatment when patient is able to actively participate with skilled therapy. ROBERTO LAWS PT Apr 30, 2021 07:48
[2021-04-30] MEDS: ASCORBIC ACID (VIT C) 500 MG TABLET PO SCH ×2 (09:14→19:58)
[2021-04-30] MEDS: METOCLOPRAMIDE INJ 10 MG/2 ML (REGLAN) IVP SCH ×3 (09:14→19:58)
[2021-04-30] MEDS: PANTOPRAZOLE 40 MG (PROTONIX) VIAL IV SCH ×2 (09:14→19:58)
[2021-04-30] MEDS: guaiFENesin (MUCINEX) 600 MG TAB PO SCH ×2 (09:14→19:58)
[2021-04-30] MEDS: ANIDULAFUNGIN INJECTION 100 MG in NS (IVPB) 100 ML IV SCH (09:15)
[2021-04-30] MEDS: ENOXAPARIN 300 MG/3 ML (LOVENOX) MULTI-DOSE VIAL SQ SCH ×2 (09:15→19:59)
[2021-04-30] MEDS: LACRI-LUBE OPTHALMIC OINT 3.5 GM TUBE OU SCH ×2 (09:15→19:59)
[2021-04-30] MEDS: ACETAMINOPHEN 325 MG TABLET PO PRN ×2 (09:37→20:00)
--- NOTE | 2021-04-30 10:14 | Progress Note - Hospitalist ---
Subjective HPI/CC On Admission Date Seen by Provider: Apr 30, 2021 Time Seen by Provider: 08:20 Marie Pillai is a 60 year old female with PMH HTN, insulin dependent T2DM, migraines, morbid obesity, who presented with shortness of breath. She was recently diagnosed with COVID-19. She has not been on any medications for COVID. She also has a cough. She reports fevers and chills. She has not had much of an appetite. She denies chest pain. Subjective/Events-last exam She remains intubated and sedated. Focused Exam Time of Focused Exam: 09:00 Objective Exam Vital Signs Vital Signs Date Time Temp Pulse Resp B/P (MAP) Pulse Ox O2 Delivery O2 Flow Rate FiO2 04/30/21 09:00 74 19 126/60 (82) 91 Mechanical Ventilator 50.00 04/30/21 07:28 50 04/30/21 06:00 39.0 Capillary Refill : Less Than 3 Seconds General Appearance: No Apparent Distress, Chronically ill, Obese Respiratory: No Respiratory Distress, Crackles, Other (Intubated and mechanically ventilated) Cardiovascular: Regular Rate, Rhythm, No Murmur Gastrointestinal: Normal Bowel Sounds, Soft Extremity: Normal Inspection, Pedal Edema Neurologic/Psychiatric: Other (Sedated) Skin: Normal Color, Warm/Dry Results/Procedures Lab Laboratory Tests 04/29/21 13:20 04/30/21 02:00 04/30/21 04:10 Patient resulted labs reviewed. Imaging: Reviewed Imaging Report Assessment/Plan Assessment and Plan Assess & Plan/Chief Complaint Acute respiratory distress syndrome due to COVID-19 Pneumonia due to COVID-19 Lymphopenia associated with COVID-19 Elevated LFTs Elevated d-dimer Endotracheally intubated Poor prognosis s/p decadron s/p 1 unit convalescent plasma Intubated 04/17, ventilator requirements stable, FiO2 60% and PEEP 12 TeleICU consulted, appreciate assistance Procal remains within normal limits s/p Zosyn Continue Eraxis [facility] following T2DM with hyperglycemia Steroid induced hyperglycemia Levemir Sliding scale insulin HTN Hold cardizem Morbid obesity Clinically significant, no acute management needs DVT prophylaxis: Lovenox GI prophylaxis: Protonix Bacterial pneumonia, resolved Critical Care Critically Ill Patient Diagnosis/Problems Diagnosis/Problems (1) Acute respiratory distress syndrome (ARDS) due to COVID-19 virus Status: Acute (2) Pneumonia due to COVID-19 virus Status: Acute (3) Acute respiratory failure due to COVID-19 Status: Acute (4) Lymphopenia associated with COVID-19 Status: Acute (5) Elevated LFTs Status: Acute (6) Elevated d-dimer Status: Acute (7) Morbid obesity Status: Chronic (8) HTN (hypertension) Status: Chronic (9) T2DM (type 2 diabetes mellitus) Status: Chronic (10) Goals of care, counseling/discussion Status: Acute (11) Poor prognosis Status: Acute JUANI FUENTES MD Apr 30, 2021 10:14
[2021-04-30] MEDS: 1/2 NS IV SOLUTION 1,000 ML IV SCH (16:31)
[2021-04-30] MEDS: 3-IN-1 TPN IV SCH ×10 (16:32)
[2021-04-30] MEDS ORDERED: 3-IN-1 TPN IV SCH ×10 (17:00)
[2021-04-30] MEDS: LORazepam INJ 2 MG/ML (ATIVAN) VIAL IVP PRN (19:54)
[2021-04-30] MEDS: polyethylene glycoL POWDER 17 GM (MIRALAX) PACK PO SCH (19:59)
[2021-05-01] VITALS (12 sets, daily range): BP systolic 103–155; BP diastolic 54–76
[2021-05-01 01:34] LABS: BASOPHILS % (AUTO) 0 % (0-10); EOSINOPHILS # (AUTO) 0.1 10^3/uL (0.0-0.3); EOSINOPHILS % (AUTO) 1 % (0-10); HEMATOCRIT 23 % (35-52); LYMPHOCYTES % (AUTO) 10 % (12-44); MEAN CORPUSCULAR HEMOGLOBIN 28 pg (25-34); MEAN CORPUSCULAR HGB CONC 31 g/dL (32-36); MEAN CORPUSCULAR VOLUME 91 fL (80-99); MEAN PLATELET VOLUME 10.1 fL (9.0-12.2); MONOCYTES # (AUTO) 0.7 10^3/uL (0.0-1.0); MONOCYTES % (AUTO) 7 % (0-12); NEUTROPHILS # (AUTO) 8.3 10^3/uL (1.8-7.8); NEUTROPHILS % (AUTO) 82 % (42-75); PLATELET COUNT 246 10^3/uL (130-400); WHITE BLOOD COUNT 10.1 10^3/uL (4.3-11.0)
[2021-05-01 01:35] LABS: ABG BASE EXCESS -0.4 MMOL/L (-2.5-2.5); ABG OXYGEN SATURATION 95 % (94-100); ABG PCO2 40 MMHG (35-45); ABG PO2 74 MMHG (79-93)
[2021-05-01 01:38] LABS: HEMOGLOBIN 6.9 g/dL (11.5-16.0)
[2021-05-01 01:40] LABS: ALLENS TEST ART LINE; VENTILATOR YES
[2021-05-01 01:47] LABS: ALBUMIN 1.9 GM/DL (3.2-4.5); POTASSIUM 3.3 MMOL/L (3.6-5.0)
[2021-05-01 01:48] LABS: CALCIUM 6.1 MG/DL (8.5-10.1)
[2021-05-01 01:50] LABS: TOTAL PROTEIN 4.5 GM/DL (6.4-8.2)
[2021-05-01 01:51] LABS: BILIRUBIN,TOTAL 0.5 MG/DL (0.1-1.0)
[2021-05-01 01:53] LABS: CREATININE SERUM 0.43 MG/DL (0.60-1.30); PHOSPHORUS 1.6 MG/DL (2.3-4.7)
[2021-05-01 01:54] LABS: BASOPHILS % (AUTO) 0 % (0-10); EOSINOPHILS # (AUTO) 0.1 10^3/uL (0.0-0.3); EOSINOPHILS % (AUTO) 1 % (0-10); HEMATOCRIT 26 % (35-52); LYMPHOCYTES % (AUTO) 10 % (12-44); MEAN CORPUSCULAR HEMOGLOBIN 28 pg (25-34); MEAN CORPUSCULAR HGB CONC 30 g/dL (32-36); MEAN CORPUSCULAR VOLUME 93 fL (80-99); MONOCYTES # (AUTO) 0.8 10^3/uL (0.0-1.0); MONOCYTES % (AUTO) 7 % (0-12); NEUTROPHILS # (AUTO) 8.9 10^3/uL (1.8-7.8); NEUTROPHILS % (AUTO) 81 % (42-75); PLATELET COUNT 265 10^3/uL (130-400)
[2021-05-01 01:56] LABS: MAGNESIUM 1.7 MG/DL (1.6-2.4)
[2021-05-01 02:08] LABS: POTASSIUM 5.1 MMOL/L (3.6-5.0)
[2021-05-01 02:09] LABS: CALCIUM 7.1 MG/DL (8.5-10.1)
[2021-05-01] MEDS: POTASSIUM CL 10MEQ/50ML IVPB 50 ML IV SCH (02:10)
[2021-05-01] MEDS: KCL 20 MEQ TAB (K-DUR) PO SCH (02:11)
[2021-05-01 02:13] LABS: CREATININE SERUM 0.69 MG/DL (0.60-1.30); PHOSPHORUS 3.7 MG/DL (2.3-4.7)
[2021-05-01 02:16] LABS: MAGNESIUM 2.3 MG/DL (1.6-2.4)
[2021-05-01] MEDS: fentaNYL DRIP PRE-MIX 250 ML IV SCH ×3 (02:19→10:22)
[2021-05-01] MEDS: DexMEDEtomidine 250 ML DRIP 250 ML IV SCH ×2 (02:19→08:46)
[2021-05-01] MEDS: RT-LEVALBUTEROL (XOPENEX) 1.25 MG/3 ML NEB NON-FORMULARY INH SCH ×2 (02:40→06:45)
[2021-05-01] MEDS: MAGNESIUM 1 GM/100 ML IVPB 100 ML IV SCH (02:44)
[2021-05-01] MEDS: inSUlin ASPART (NovoLOG) 1 UNIT/0.01 ML (CHARGE PER UNIT) SC SCH (05:05)
[2021-05-01] MEDS: LORazepam INJ 2 MG/ML (ATIVAN) VIAL IVP PRN (05:10)
[2021-05-01] MEDS: NOREPINEPHRINE 8 MG/250 ML 250 ML IV SCH (06:30)
--- NOTE | 2021-05-01 06:42 | Occ Therapy Progress Note ---
Therapy Progress Note Pt is currently intubated. OT will continue to monitor pt and initiate therapy when pt is more medically stable and able to actively participate in skilled therapy. MADISYN ROGERS May 01, 2021 06:42
--- NOTE | 2021-05-01 07:46 | Physical Therapy Progress Note ---
Therapy Progress Note Patient currently sedated and intubated. PT will continue to monitor patient status and initiate treatment when patient is able to actively participate with skilled therapy. ROBERTO LAWS PT May 01, 2021 07:46
[2021-05-01] MEDS: ASCORBIC ACID (VIT C) 500 MG TABLET PO SCH (07:55)
[2021-05-01] MEDS: KETOROLAC 15 MG/ML VIAL IVP PRN (07:56)
[2021-05-01] MEDS: METOCLOPRAMIDE INJ 10 MG/2 ML (REGLAN) IVP SCH (07:56)
[2021-05-01] MEDS: guaiFENesin (MUCINEX) 600 MG TAB PO SCH (07:56)
[2021-05-01] MEDS: PANTOPRAZOLE 40 MG (PROTONIX) VIAL IV SCH (07:57)
[2021-05-01] MEDS: ENOXAPARIN 300 MG/3 ML (LOVENOX) MULTI-DOSE VIAL SQ SCH (07:57)
[2021-05-01] MEDS: LACRI-LUBE OPTHALMIC OINT 3.5 GM TUBE OU SCH (07:59)
[2021-05-01] MEDS: ANIDULAFUNGIN INJECTION 100 MG in NS (IVPB) 100 ML IV SCH (08:19)
--- NOTE | 2021-05-01 10:46 | Discharge Summary ---
Discharge Summary Hospital Course Was the Problem List Reviewed?: Yes Problems/Dx: (1) Acute respiratory distress syndrome (ARDS) due to COVID-19 virus Status: Acute (2) Pneumonia due to COVID-19 virus Status: Acute (3) Acute respiratory failure due to COVID-19 Status: Acute (4) Lymphopenia associated with COVID-19 Status: Acute (5) Elevated LFTs Status: Acute (6) Elevated d-dimer Status: Acute (7) Morbid obesity Status: Chronic (8) HTN (hypertension) Status: Chronic (9) T2DM (type 2 diabetes mellitus) Status: Chronic (10) Goals of care, counseling/discussion Status: Acute (11) Poor prognosis Status: Acute Hospital Course Date of Admission: Apr 15, 2021 at 16:20 Admission Diagnosis : Acute respiratory failure due to COVID-19 Family Physician/Provider: Krunal Hackett Physician Date of Discharge: 05/01/21 Discharge Diagnosis: Acute respiratory distress syndrome due to COVID-19 Hospital Course: Marie Pillai is a 60-year-old female who was admitted with acute respiratory failure due to COVID-19. Her oxygen requirements worsened and she required admission to the ICU. Her oxygen levels continued to decline despite maximal supportive care and she required endotracheal intubation. She was treated with steroids, remdesivir, and convalescent plasma. She progressed to acute respiratory distress syndrome. She was requiring maximal support with 100% FiO2 and high PEEP. She was proned as tolerated. She was treated with a course of antibiotics for possible bacterial pneumonia. She was spiking fevers and antifungal coverage was added. Sputum cultures had no growth. She was treated with therapeutic Lovenox due to elevated D-dimer and hypercoagulable state associated with COVID-19. Her ventilator requirements began to slightly improved. She was expected to have a long hospital course and recovery. She was transferred to [facility] for ongoing care. Labs and Pending Lab Test: Laboratory Tests 04/30/21 11:07: Glucometer 277H 04/30/21 17:10: Glucometer 278H 04/30/21 23:00: Glucometer 322H 05/01/21 01:22: White Blood Count 10.1, Red Blood Count 2.49L, Hemoglobin 6.9*L, Hematocrit 23L, Mean Corpuscular Volume 91, Mean Corpuscular Hemoglobin 28, Mean Corpuscular Hemoglobin Concent 31L, Red Cell Distribution Width 14.4, Platelet Count 246, Mean Platelet Volume 10.1, Immature Granulocyte % (Auto) 2, Neutrophils (%) (Auto) 82H, Lymphocytes (%) (Auto) 10L, Monocytes (%) (Auto) 7, Eosinophils (%) (Auto) 1, Basophils (%) (Auto) 0, Neutrophils # (Auto) 8.3H, Lymphocytes # (Auto) 1.0, Monocytes # (Auto) 0.7, Eosinophils # (Auto) 0.1, Basophils # (Auto) 0.0, Immature Granulocyte # (Auto) 0.2H, Blood Gas Puncture Site L RADIAL, Blood Gas Patient Temperature 37.0, Arterial Blood pH 7.40, Arterial Blood Partial Pressure CO2 40, Arterial Blood Partial Pressure O2 74L, Arterial Blood HCO3 24, Arterial Blood Total CO2 25.0, Arterial Blood Oxygen Saturation 95, Arterial Blood Base Excess -0.4, Mamadou Test ART LINE, Blood Gas Ventilator Setting YES, Blood Gas Inspired Oxygen NA, Sodium Level 140, Potassium Level 3.3L, Chloride Level 115H, Carbon Dioxide Level 18L, Anion Gap 7, Blood Urea Nitrogen 12, Creatinine 0.43L, Estimat Glomerular Filtration Rate 149, BUN/Creatinine Ratio 28, Glucose Level 293H, Calcium Level 6.1L, Corrected Calcium 7.8L, Phosphorus Level 1.6L, Magnesium Level 1.7, Total Bilirubin 0.5, Aspartate Amino Transf (AST/SGOT) 24, Alanine Aminotransferase (ALT/SGPT) 34, Alkaline Phosphatase 80, Total Protein 4.5L, Albumin 1.9L 05/01/21 01:48: White Blood Count 11.0, Red Blood Count 2.84L, Hemoglobin 8.0L, Hematocrit 26L, Mean Corpuscular Volume 93, Mean Corpuscular Hemoglobin 28, Mean Corpuscular Hemoglobin Concent 30L, Red Cell Distribution Width 14.7H, Platelet Count 265, Mean Platelet Volume 10.0, Immature Granulocyte % (Auto) 1, Neutrophils (%) (Auto) 81H, Lymphocytes (%) (Auto) 10L, Monocytes (%) (Auto) 7, Eosinophils (%) (Auto) 1, Basophils (%) (Auto) 0, Neutrophils # (Auto) 8.9H, Lymphocytes # (Auto) 1.0, Monocytes # (Auto) 0.8, Eosinophils # (Auto) 0.1, Basophils # (Auto) 0.0, Immature Granulocyte # (Auto) 0.1, Sodium Level 135, Potassium Level 5.1H, Chloride Level 107, Carbon Dioxide Level 20L, Anion Gap 8, Blood Urea Nitrogen 13, Creatinine 0.69, Estimat Glomerular Filtration Rate 86, BUN/Creatinine Ratio 19, Glucose Level 908*H, Calcium Level 7.1L, Phosphorus Level 3.7, Magnesium Level 2.3 05/01/21 02:58: Glucometer 300H Microbiology 04/29/21 Blood Culture - Preliminary, Resulted No growth 04/24/21 Gram Stain - Final, Complete 04/24/21 Sputum Culture - Final, Complete Usual upper respiratory ursula Home Meds Active Reported Levemir (Insulin Determir) 1,000 Units/10 Ml Soln 30 Units SQ HS Humalog (Insulin Lispro) 100 Unit/1 Ml Cartridge 10 Unit SQ AC Aspirin EC (Aspirin) 81 Mg Tablet.dr 81 Mg PO DAILY Diltiazem 24Hr ER (Diltiazem HCl) 180 Mg Cap.er.24h 180 Mg PO DAILY Hydrocodone-Acetamin 10-325 mg (Hydrocodone/Acetaminophen) 1 Each Tablet 1 Tab PO Q6H PRN MDD 4 Assessment/Pt Instructions Patient transferred to [facility] Discharge Planning: >30 minutes discharge planning Discharge Instructions Discharge Diet: Other Diet (N.p.o.) Activity as Tolerated: Yes Discharge Physical Examination Vital Signs Vital Signs Date Time Temp Pulse Resp B/P (MAP) Pulse Ox O2 Delivery O2 Flow Rate FiO2 05/01/21 09:00 123 103/60 (74) 91 Mechanical Ventilator 75.00 05/01/21 08:03 36.8 05/01/21 08:00 75 05/01/21 06:40 22 General Appearance: No Apparent Distress, Obese, Other (Intubated and sedated) Respiratory: No Respiratory Distress, Crackles, Other (Intubated and mechanically ventilated) Gastrointestinal: Normal Bowel Sounds, Soft Extremity: Normal Inspection, Pedal Edema Skin: Normal Color, Warm/Dry Neurologic/Psychiatric: Other (Sedated) Allergies: Coded Allergies: albuterol (Verified Allergy, Unknown, 04/16/21) throat swelling amitriptyline (Verified Allergy, Unknown, 11/04/19) diphenhydramine (Verified Allergy, Unknown, 11/04/19) fentanyl (Verified Allergy, Unknown, 11/04/19) ketorolac (Verified Allergy, Unknown, 11/04/19) Discharge Summary Date of Admission Apr 15, 2021 at 16:20 Date of Discharge Discharge Date: May 01, 2021 Discharge Time: 10:45 Admission Diagnosis Acute respiratory failure due to COVID-19 Comfort Measures/ Time spent on discussion (min): 0 Discharge Diagnosis Acute respiratory distress syndrome due to COVID-19 (1) Acute respiratory distress syndrome (ARDS) due to COVID-19 virus Status: Acute (2) Pneumonia due to COVID-19 virus Status: Acute (3) Acute respiratory failure due to COVID-19 Status: Acute (4) Lymphopenia associated with COVID-19 Status: Acute (5) Elevated LFTs Status: Acute (6) Elevated d-dimer Status: Acute (7) Morbid obesity Status: Chronic (8) HTN (hypertension) Status: Chronic (9) T2DM (type 2 diabetes mellitus) Status: Chronic (10) Goals of care, counseling/discussion Status: Acute (11) Poor prognosis Status: Acute JUANI FUENTES MD May 01, 2021 10:44
== END 2021-05-01 09:45 | DRG 207 ==
LOC: EDUNIT# 13:40 → ER FS 13:44 → 4TH 16:20 → ICU 04-16 08:55
PROVIDERS: ADMIT Internal Medicine; ATTEND Internal Medicine
PROC: 5A1955Z Respiratory Ventilation, Greater than 96 Consecutive Hours (ICD-10-PCS; principal; 2021-04-17)
PROC: 0BH17EZ Insertion of Endotracheal Airway into Trachea, Via Natural or Artificial Opening (ICD-10-PCS; 2021-04-17)
PROC: 5A09357 Assistance with Respiratory Ventilation, Less than 24 Consecutive Hours, Continuous Positive Airway Pressure (ICD-10-PCS; 2021-04-17)
PROC: XW13325 Transfusion of Convalescent Plasma (Nonautologous) into Peripheral Vein, Percutaneous Approach, New Technology Group 5 (ICD-10-PCS; 2021-04-18)
DX: U07.1 COVID-19 (principal); J12.82 Pneumonia due to coronavirus disease 2019; J80 Acute respiratory distress syndrome; J15.9 Unspecified bacterial pneumonia; Z68.42 Body mass index [BMI] 45.0-49.9, adult; E11.65 Type 2 diabetes mellitus with hyperglycemia; Z79.4 Long term (current) use of insulin; T38.0X5A Adverse effect of glucocorticoids and synthetic analogues, initial encounter; I10 Essential (primary) hypertension; K21.9 Gastro-esophageal reflux disease without esophagitis; F41.9 Anxiety disorder, unspecified; K57.90 Diverticulosis of intestine, part unspecified, without perforation or abscess without bleeding; E66.01 Morbid (severe) obesity due to excess calories; H54.7 Unspecified visual loss; I25.2 Old myocardial infarction; Z79.82 Long term (current) use of aspirin
CPT/HCPCS: 36415; 36569; 71045; 74018; 76937; 80048; 80053; 80076; 82040; 82805; 82947; 83036; 83605; 83735; 84100; 84134; 84145; 84478; 85007; 85025; 85027; 85379; 86141; 86900; 86901; 87040; 87070; 87205; 87636; 94002; 94003; 94640; 94660; 94664; 94760; 94799; 96374; 96375